=== PATIENT | female | born 1930 | race Caucasian/White ===

== ENCOUNTER 2016-12-25 09:23 | Emergency (ER) | payer MEDICARE, OTHER ==
--- NOTE | 2016-12-25 09:57 | EDDOCDS ---
Physician Documentation [facility] Name: Nika Bai Age: 86 yrs Sex: Female : 1930 Arrival Date: 12/25/2016 Time: 09:23 Bed Triage 2 Private MD: Jeffery Baker A. Disposition: 12/25/16 09:51 Discharged to Home/Self Care. Impression: Sprain of other part of right wrist and hand. - Condition is Stable. - Discharge Instructions: Elastic Bandage and RICE. - Medication Reconciliation, Local Pharmacy Hours form. - Follow up: Jeffery Baker; When: 1 week; Reason: Recheck today's complaints. - Problem is new. - Symptoms are unchanged. - Notes: recommend use of tylenol as needed for pain Historical: - Allergies: No known drug Allergies; - Home Meds: 1. amlodipine 5 mg Oral tab 1 tab once daily 2. Diovan 320 mg Oral tab 1 tab once daily 3. indapamide 1.25 mg Oral tab 1 tab once daily 4. atorvastatin 10 mg oral tab 1 tab once daily 5. spironolactone 12.5 mg Oral tab once daily 6. One Daily Womens 50 Plus Unknown oral daily - PMHx: Hypercholesterolemia; Hypertension; - PSHx: Hysterectomy; - Social history: Smoking status: Patient states former smoker of tobacco. No barriers to communication noted, The patient speaks fluent Bahraini, Speaks appropriately for age. - Family history: Not pertinent. - : The pt / caregiver states he / she is not on anticoagulants. Home medication list is obtained from the patient. - Exposure Risk Screening:: None identified. Vital Signs: 12/25 09:25 BP 195 / 79; Pulse 96; Resp 18; Temp 98.9; Pulse Ox 98% ; Weight 80.74 kg / 178 lbs; elp Height 5 ft. 4 in. (162.56 cm); 09:25 Body Mass Index 30.55 (80.74 kg, 162.56 cm) elp MDM: 09:55 Financial registration complete. lg Signatures: Phillip Velazquez, Reg Reg lg Kianna Jarvis RN RN ck1 Hernandez Zafar, PAT STEWART ar2 MTDD
--- NOTE | 2016-12-25 09:57 | EDDOCDS ---
Nurse's Notes [facility] Name: Nika Bai Age: 86 yrs Sex: Female : 1930 Arrival Date: 12/25/2016 Time: 09:23 Bed Triage 2 Private MD: Jeffery Baker A. Diagnosis: Sprain of other part of right wrist and hand Presentation: 12/25 09:30 Presenting complaint: Patient states: Increased pain to right wrist after trying to ck1 remove a lid from a pill bottle. Adult Sepsis Screening: The patient does not have new or worsening altered mentation. Patient's respiratory rate is less than 22. Systolic blood pressure is greater than 100. Patient has a qSOFA score of 0- Negative Sepsis Screen. Suicide/Homicide risk assessment- the patient denies having any suicidal and/or homicidal ideations and does not present with any other emotional, behavioral or mental health complaints. Status: Patient is not a account services analyst or dependent. Transition of care: patient was not received from another setting of care. 09:30 Acuity: NICOLE Level 4 ck1 09:30 Method Of Arrival: Walkin/Carried/Asstd ck1 Triage Assessment: 09:33 General: Appears in no apparent distress, comfortable, Behavior is appropriate for age, ck1 cooperative. Pain: Location: right wrist Pain currently is 9 out of 10 on a pain scale. Neurological: Level of Consciousness is awake, alert, obeys commands, Oriented to person, place, time. Musculoskeletal: Circulation, motion, and sensation intact Range of motion intact in all extremities. Swelling present in right wrist. Historical: - Allergies: No known drug Allergies; - Home Meds: 1. amlodipine 5 mg Oral tab 1 tab once daily 2. Diovan 320 mg Oral tab 1 tab once daily 3. indapamide 1.25 mg Oral tab 1 tab once daily 4. atorvastatin 10 mg oral tab 1 tab once daily 5. spironolactone 12.5 mg Oral tab once daily 6. One Daily Womens 50 Plus Unknown oral daily - PMHx: Hypercholesterolemia; Hypertension; - PSHx: Hysterectomy; - Social history: Smoking status: Patient states former smoker of tobacco. No barriers to communication noted, The patient speaks fluent Serbian, Speaks appropriately for age. - Family history: Not pertinent. - : The pt / caregiver states he / she is not on anticoagulants. Home medication list is obtained from the patient. - Exposure Risk Screening:: None identified. Screenin:55 Screening information is obtained from the patient. Fall risk: No risks identified. ck1 Assistance ADL's: requires no assistance with activities of daily living. Abuse/DV Screen: The patient / caregiver reports he/she is: not in a situation that causes fear, pain or injury. Nutritional screening: No deficits noted. Advance Directives: Currently, there is no health care proxy. home support is adequate. Assessment: 09:56 General: Appears in no apparent distress, comfortable, Behavior is appropriate for age, ck1 cooperative. Pain: Location: right wrist Pain currently is 9 out of 10 on a pain scale. Derm: Skin is intact, Skin is pink, warm & dry. Musculoskeletal: Circulation, motion, and sensation intact Range of motion intact in all extremities. Swelling present in right wrist. Vital Signs: 09:25 BP 195 / 79; Pulse 96; Resp 18; Temp 98.9; Pulse Ox 98% ; Weight 80.74 kg; Height 5 ft. elp 4 in. (162.56 cm); 09:25 Body Mass Index 30.55 (80.74 kg, 162.56 cm) [facility] Vitals: 09:25 Log In Time: December 25, 2016 at 09:23. [facility] ED Course: 09:25 Patient visited by Violetta Lemus PCA. elp 09:25 Jeffery Baker is Private Physician. elp 09:25 Patient moved to Waiting elp 09:26 Patient moved to Pre RCE elp 09:30 Triage Initiated ck1 09:33 Patient moved to Triage 2 ck1 09:34 Hernandez Zafar PA-C is [facility]. ar2 09:34 Malena Lindsay MD is Attending Physician. ar2 09:34 Patient visited by Hernandez Zafar PA-C. ar2 09:51 Jeffery Baker is Referral Physician. ar2 09:54 No IV's were initiated during this patient's visit. No procedures done that require ck1 assistance. Aric wrap to right wrist. Patient has positive distal pulse, brisk capillary refill, and positive sensation after application. 09:55 The patient / caregiver is instructed regarding the plan of care and ED course. ck1 Order Results: There are currently no results for this order. Outcome: 09:51 Discharge ordered by Provider. ar2 09:55 Discharge Assessment: Patient awake, alert and oriented x 3. No cognitive and/or ck1 functional deficits noted. Patient verbalized understanding of disposition instructions. patient administered narcotics - no. The following High Risk Discharge criteria are identified: None. Discharged to home ambulatory. Condition: stable. Discharge instructions given to patient, Instructed on discharge instructions, follow up and referral plans. medication usage, Rest, Ice, Compression and Elevation. Demonstrated understanding of instructions, medications, Pt was receptive of discharge instructions/ teaching. No special radiology studies were completed. Property :Personal belongings accompany Pt. 09:56 Patient left the ED. ck1 Signatures: Kianna Jarvis,RN RN ck1 Hernandez Zafar PA-C PA-C ar2 Violetta Lemus PCA PCA elp MTDD
--- NOTE | 2016-12-27 10:57 | EDDOCDS ---
Physician Documentation [facility] Name: Nika Bai Age: 86 yrs Sex: Female : 1930 Arrival Date: 12/25/2016 Time: 09:23 Bed Triage 2 Private MD: Jeffery Baker A. Disposition: 12/25/16 09:51 Discharged to Home/Self Care. Impression: Sprain of other part of right wrist and hand. - Condition is Stable. - Discharge Instructions: Elastic Bandage and RICE. - Medication Reconciliation, Local Pharmacy Hours form. - Follow up: Jeffery Baker; When: 1 week; Reason: Recheck today's complaints. - Problem is new. - Symptoms are unchanged. - Notes: recommend use of tylenol as needed for pain Historical: - Allergies: No known drug Allergies; - Home Meds: 1. amlodipine 5 mg Oral tab 1 tab once daily 2. Diovan 320 mg Oral tab 1 tab once daily 3. indapamide 1.25 mg Oral tab 1 tab once daily 4. atorvastatin 10 mg oral tab 1 tab once daily 5. spironolactone 12.5 mg Oral tab once daily 6. One Daily Womens 50 Plus Unknown oral daily - PMHx: Hypercholesterolemia; Hypertension; - PSHx: Hysterectomy; - Social history: Smoking status: Patient states former smoker of tobacco. No barriers to communication noted, The patient speaks fluent Burundian, Speaks appropriately for age. - Family history: Not pertinent. - : The pt / caregiver states he / she is not on anticoagulants. Home medication list is obtained from the patient. - Exposure Risk Screening:: None identified. Vital Signs: 12/25 09:25 BP 195 / 79; Pulse 96; Resp 18; Temp 98.9; Pulse Ox 98% ; Weight 80.74 kg / 178 lbs; elp Height 5 ft. 4 in. (162.56 cm); 09:25 Body Mass Index 30.55 (80.74 kg, 162.56 cm) elp MDM: 09:55 Financial registration complete. lg 10:10 [facility] Payment Agreement was scanned into [employer] and attached to record. 12/27 08:32 T-Sheet-- Draft Copy was scanned into [employer] and attached to record. Signatures: Phillip Velazquez, Reg Reg Kianna CostaRN RN ck1 Hernandez Zafar, PAT STEWART ar2 The chart was reviewed and I authenticate all verbal orders and agree with the evaluation and treatment provided.Attachments: 12/25 10:10 [facility] Payment Agreement lg 12/27 08:32 T-Sheet-- Draft Copy lg Chart Complete MTDD
--- NOTE | 2016-12-27 10:57 | EDDOCDS ---
Nurse's Notes [facility] Name: Nika Bai Age: 86 yrs Sex: Female : 1930 Arrival Date: 12/25/2016 Time: 09:23 Bed Triage 2 Private MD: Jeffery Baker A. Diagnosis: Sprain of other part of right wrist and hand Presentation: 12/25 09:30 Presenting complaint: Patient states: Increased pain to right wrist after trying to ck1 remove a lid from a pill bottle. Adult Sepsis Screening: The patient does not have new or worsening altered mentation. Patient's respiratory rate is less than 22. Systolic blood pressure is greater than 100. Patient has a qSOFA score of 0- Negative Sepsis Screen. Suicide/Homicide risk assessment- the patient denies having any suicidal and/or homicidal ideations and does not present with any other emotional, behavioral or mental health complaints. Status: Patient is not a director of student financial services or dependent. Transition of care: patient was not received from another setting of care. 09:30 Acuity: NICOLE Level 4 ck1 09:30 Method Of Arrival: Walkin/Carried/Asstd ck1 Triage Assessment: 09:33 General: Appears in no apparent distress, comfortable, Behavior is appropriate for age, ck1 cooperative. Pain: Location: right wrist Pain currently is 9 out of 10 on a pain scale. Neurological: Level of Consciousness is awake, alert, obeys commands, Oriented to person, place, time. Musculoskeletal: Circulation, motion, and sensation intact Range of motion intact in all extremities. Swelling present in right wrist. Historical: - Allergies: No known drug Allergies; - Home Meds: 1. amlodipine 5 mg Oral tab 1 tab once daily 2. Diovan 320 mg Oral tab 1 tab once daily 3. indapamide 1.25 mg Oral tab 1 tab once daily 4. atorvastatin 10 mg oral tab 1 tab once daily 5. spironolactone 12.5 mg Oral tab once daily 6. One Daily Womens 50 Plus Unknown oral daily - PMHx: Hypercholesterolemia; Hypertension; - PSHx: Hysterectomy; - Social history: Smoking status: Patient states former smoker of tobacco. No barriers to communication noted, The patient speaks fluent Estonian, Speaks appropriately for age. - Family history: Not pertinent. - : The pt / caregiver states he / she is not on anticoagulants. Home medication list is obtained from the patient. - Exposure Risk Screening:: None identified. Screenin:55 Screening information is obtained from the patient. Fall risk: No risks identified. ck1 Assistance ADL's: requires no assistance with activities of daily living. Abuse/DV Screen: The patient / caregiver reports he/she is: not in a situation that causes fear, pain or injury. Nutritional screening: No deficits noted. Advance Directives: Currently, there is no health care proxy. home support is adequate. Assessment: 09:56 General: Appears in no apparent distress, comfortable, Behavior is appropriate for age, ck1 cooperative. Pain: Location: right wrist Pain currently is 9 out of 10 on a pain scale. Derm: Skin is intact, Skin is pink, warm & dry. Musculoskeletal: Circulation, motion, and sensation intact Range of motion intact in all extremities. Swelling present in right wrist. Vital Signs: 09:25 BP 195 / 79; Pulse 96; Resp 18; Temp 98.9; Pulse Ox 98% ; Weight 80.74 kg; Height 5 ft. elp 4 in. (162.56 cm); 09:25 Body Mass Index 30.55 (80.74 kg, 162.56 cm) [facility] Vitals: 09:25 Log In Time: December 25, 2016 at 09:23. [facility] ED Course: 09:25 Patient visited by Violetta Lemus PCA. elp 09:25 Jeffery Baker is Private Physician. elp 09:25 Patient moved to Waiting elp 09:26 Patient moved to Pre RCE elp 09:30 Triage Initiated ck1 09:33 Patient moved to Triage 2 ck1 09:34 [facility]-C [facility] ar2 09:34 Malena Lindsay MD is Attending Physician. ar2 09:34 Patient visited by Hernandez Zafar PA-C. ar2 09:51 Jeffery Baker is Referral Physician. ar2 09:54 No IV's were initiated during this patient's visit. No procedures done that require ck1 assistance. Aric wrap to right wrist. Patient has positive distal pulse, brisk capillary refill, and positive sensation after application. 09:55 The patient / caregiver is instructed regarding the plan of care and ED course. ck1 10:10 [facility] Payment Agreement was scanned into [employer] and attached to record. lg 12/27 08:32 T-Sheet-- Draft Copy was scanned into [employer] and attached to record. lg Order Results: There are currently no results for this order. Outcome: 12/25 09:51 Discharge ordered by Provider. ar2 09:55 Discharge Assessment: Patient awake, alert and oriented x 3. No cognitive and/or ck1 functional deficits noted. Patient verbalized understanding of disposition instructions. patient administered narcotics - no. The following High Risk Discharge criteria are identified: None. Discharged to home ambulatory. Condition: stable. Discharge instructions given to patient, Instructed on discharge instructions, follow up and referral plans. medication usage, Rest, Ice, Compression and Elevation. Demonstrated understanding of instructions, medications, Pt was receptive of discharge instructions/ teaching. No special radiology studies were completed. Property :Personal belongings accompany Pt. 09:56 Patient left the ED. ck1 Signatures: Phillip Velazquez, Reg Reg lg Kianna JarvisRN RN ck1 Hernandez Zafar PA-C PA-C ar2 Violetta Lemus, DANY RACK MAKER elp Chart Complete [facility]
--- NOTE | 2016-12-27 10:57 | EDDOCDS ---
Physician Documentation [facility] Name: Nika Bai Age: 86 yrs Sex: Female : 1930 Arrival Date: 12/25/2016 Time: 09:23 Bed Triage 2 Private MD: Jeffery Baker A. Disposition: 12/25/16 09:51 Discharged to Home/Self Care. Impression: Sprain of other part of right wrist and hand. - Condition is Stable. - Discharge Instructions: Elastic Bandage and RICE. - Medication Reconciliation, Local Pharmacy Hours form. - Follow up: Jeffery Baker; When: 1 week; Reason: Recheck today's complaints. - Problem is new. - Symptoms are unchanged. - Notes: recommend use of tylenol as needed for pain Historical: - Allergies: No known drug Allergies; - Home Meds: 1. amlodipine 5 mg Oral tab 1 tab once daily 2. Diovan 320 mg Oral tab 1 tab once daily 3. indapamide 1.25 mg Oral tab 1 tab once daily 4. atorvastatin 10 mg oral tab 1 tab once daily 5. spironolactone 12.5 mg Oral tab once daily 6. One Daily Womens 50 Plus Unknown oral daily - PMHx: Hypercholesterolemia; Hypertension; - PSHx: Hysterectomy; - Social history: Smoking status: Patient states former smoker of tobacco. No barriers to communication noted, The patient speaks fluent Nepalese, Speaks appropriately for age. - Family history: Not pertinent. - : The pt / caregiver states he / she is not on anticoagulants. Home medication list is obtained from the patient. - Exposure Risk Screening:: None identified. Vital Signs: 12/25 09:25 BP 195 / 79; Pulse 96; Resp 18; Temp 98.9; Pulse Ox 98% ; Weight 80.74 kg / 178 lbs; elp Height 5 ft. 4 in. (162.56 cm); 09:25 Body Mass Index 30.55 (80.74 kg, 162.56 cm) elp MDM: 09:55 Financial registration complete. lg 10:10 [facility] Payment Agreement was scanned into [employer] and attached to record. 12/27 08:32 T-Sheet-- Draft Copy was scanned into [employer] and attached to record. Signatures: Phillip Velazquez, Reg Reg Kianna CostaRN RN ck1 Hernandez Zafar, PAT STEWART ar2 The chart was reviewed and I authenticate all verbal orders and agree with the evaluation and treatment provided.Attachments: 12/25 10:10 [facility] Payment Agreement lg 12/27 08:32 T-Sheet-- Draft Copy lg Chart Complete MTDD
== END 2016-12-25 09:56 | disposition home or self-care (01) ==
LOC: M ED 09:23
DX: S63.501A Unspecified sprain of right wrist, initial encounter (principal); X50.9XXA Other and unspecified overexertion or strenuous movements or postures, initial encounter; Y92.019 Unspecified place in single-family (private) house as the place of occurrence of the external cause; Y93.89 Activity, other specified; Y99.8 Other external cause status; E78.00 Pure hypercholesterolemia, unspecified; I10 Essential (primary) hypertension; Z87.891 Personal history of nicotine dependence; Z79.899 Other long term (current) drug therapy

== ENCOUNTER 2018-10-17 08:44 | Inpatient (IN) | payer MEDICARE ==
[2018-10-17] MEDS: MORPHINE 2 MG/ML 1ML SYRINGE (J2270) IV (09:47)
[2018-10-17 09:57] LABS: BASO % 0.1 % (0.0-1.0); HEMATOCRIT 38.3 % (36.0-47.0); HEMOGLOBIN 12.8 g/dl (12.0-15.5); LYMPH # 0.6 10^3/uL (1.5-4.5); MEAN CORPUSCULAR HGB CONC 33.4 g/dl (32.0-36.5); MEAN CORPUSCULAR VOLUME 92.7 fl (80.0-96.0); MONO # 0.6 10^3/uL (0.0-0.8); MONO % 4.2 % (0.0-5.0); NEUTROPHILS # 12.8 10^3/uL (1.8-7.7); NEUTROPHILS % 90.7 % (36.0-66.0); PLATELET COUNT, AUTOMATED 469 10^3/uL (150-450); RED BLOOD COUNT 4.13 10^6/uL (4.00-5.40); RED CELL DISTRIBUTION WIDTH 12.9 % (11.5-14.5); WHITE BLOOD COUNT 14.1 10^3/uL (4.0-10.0)
[2018-10-17 10:27] LABS: ANION GAP 7 MEQ/L (8-16); BLOOD UREA NITROGEN 28 MG/DL (7-18); CALCIUM LEVEL 10.5 MG/DL (8.8-10.2); CARBON DIOXIDE LEVEL 32 MEQ/L (21-32); CHLORIDE LEVEL 101 MEQ/L (98-107); CREATININE FOR GFR 0.92 MG/DL (0.55-1.30); GLOMERULAR FILTRATION RATE > 60.0 (>32); GLUCOSE, FASTING 130 MG/DL (70-100); POTASSIUM SERUM 3.9 MEQ/L (3.5-5.1); SODIUM LEVEL 140 MEQ/L (136-145)
[2018-10-17 10:32] LABS: CPK CREATINE PHOSPHOKINASE 666 U/L (26-192); MB/CK RELATIVE INDEX 1.88 (< OR =4); TROPONIN I < 0.02 NG/ML (< 0.10)
[2018-10-17] MEDS: MORPHINE 4 MG/ML 1ML VIAL/SYRINGE (J2270) IV ×2 (12:15→20:38)
[2018-10-17 12:20] LABS: KETONE, URINE AUTO RFX TRACE mg/dL (NEGATIVE); MUCUS, URINE RFX SMALL (NEGATIVE); NITRITE, URINE AUTO RFX NEGATIVE (NEGATIVE); RBC, URINE AUTO RFX 1 /HPF (0-3); SPECIFIC GRAVITY UR AUTO RFX 1.017 (1.002-1.035); SQUAM EPITHELIAL CELL UR AURFX 2 /HPF (0-6)
[2018-10-17 12:21] LABS: LEUKOCYTE ESTERASE UR AUTO RFX 1+ (NEGATIVE); WBC, URINE AUTO RFX 30 /HPF (0-3)
[2018-10-17] MEDS: NS 1,000 ML IV (17:26)
[2018-10-17] MEDS: PERCOCET 5MG/325MG TAB PO (18:03)
[2018-10-17] MEDS: amLODIPine 5 MG TAB PO ×2 (18:04→20:00)
[2018-10-17] MEDS: cefTRIAXone SOD 1 GM in D5W MINI-BAG PLUS 50 ML IV (18:04)
[2018-10-17] MEDS: ENOXAPARIN 40 MG/0.4 ML SYRINGE (J1650) SC (18:05)
[2018-10-17] MEDS: predniSONE 20 MG TAB PO (20:37)
[2018-10-17] MEDS: ONDANSETRON 4MG/2ML VIAL (J2405) IV (20:38)
[2018-10-18] MEDS: MORPHINE 4 MG/ML 1ML VIAL/SYRINGE (J2270) IV (01:47)
[2018-10-18 06:15] LABS: BASO % 0.2 % (0.0-1.0); HEMATOCRIT 37.4 % (36.0-47.0); HEMOGLOBIN 12.2 g/dl (12.0-15.5); LYMPH # 0.9 10^3/uL (1.5-4.5); LYMPH % 9.8 % (24.0-44.0); MEAN CORPUSCULAR HEMOGLOBIN 30.4 pg (27.0-33.0); MEAN CORPUSCULAR HGB CONC 32.6 g/dl (32.0-36.5); MEAN CORPUSCULAR VOLUME 93.3 fl (80.0-96.0); MONO # 0.6 10^3/uL (0.0-0.8); MONO % 6.8 % (0.0-5.0); NEUTROPHILS # 7.3 10^3/uL (1.8-7.7); NEUTROPHILS % 82.2 % (36.0-66.0); PLATELET COUNT, AUTOMATED 437 10^3/uL (150-450); RED BLOOD COUNT 4.01 10^6/uL (4.00-5.40); RED CELL DISTRIBUTION WIDTH 13.1 % (11.5-14.5); WHITE BLOOD COUNT 8.8 10^3/uL (4.0-10.0)
[2018-10-18] MEDS: traMADol 50 MG TAB PO ×3 (06:27→18:13)
[2018-10-18 06:43] LABS: ALBUMIN 2.9 GM/DL (3.2-5.2); ALBUMIN/GLOBULIN RATIO 0.81 (1.00-1.93); ALKALINE PHOSPHATASE 110 U/L (45-117); ALT/SGPT 42 U/L (12-78); ANION GAP 7 MEQ/L (8-16); AST/SGOT 26 U/L (7-37); BILIRUBIN,TOTAL 0.4 MG/DL (0.2-1.0); BLOOD UREA NITROGEN 27 MG/DL (7-18); CALCIUM LEVEL 9.1 MG/DL (8.8-10.2); CARBON DIOXIDE LEVEL 29 MEQ/L (21-32); CHLORIDE LEVEL 105 MEQ/L (98-107); CREATININE FOR GFR 0.82 MG/DL (0.55-1.30); GLOMERULAR FILTRATION RATE > 60.0 (>32); GLUCOSE, FASTING 116 MG/DL (70-100); POTASSIUM SERUM 3.9 MEQ/L (3.5-5.1); SODIUM LEVEL 141 MEQ/L (136-145); TOTAL PROTEIN 6.5 GM/DL (6.4-8.2)
[2018-10-18] MEDS: predniSONE 20 MG TAB PO ×2 (08:17→20:49)
[2018-10-18] MEDS: ENOXAPARIN 40 MG/0.4 ML SYRINGE (J1650) SC (08:17)
[2018-10-18] MEDS: PERCOCET 5MG/325MG TAB PO ×2 (08:17→15:29)
[2018-10-18] MEDS: amLODIPine 5 MG TAB PO (08:17)
[2018-10-18] MEDS: ACETAMINOPHEN TAB 650MG DOSE (2X325MG) PO (10:25)
[2018-10-18] MEDS ORDERED: BISACODYL 5 MG TAB PO (12:45)
[2018-10-18] MEDS: SENNA 8.6 MG TAB (SENOKOT) PO ×2 (13:36→20:49)
[2018-10-18] MEDS: cefTRIAXone SOD 1 GM in D5W MINI-BAG PLUS 50 ML IV (16:55)
[2018-10-19] MEDS: predniSONE 20 MG TAB PO (08:44)
[2018-10-19] MEDS: SENNA 8.6 MG TAB (SENOKOT) PO (08:44)
[2018-10-19] MEDS: amLODIPine 5 MG TAB PO (08:45)
[2018-10-19] MEDS: PERCOCET 5MG/325MG TAB PO ×3 (08:46→16:23)
[2018-10-19 08:47] LABS: HEMATOCRIT 39.7 % (36.0-47.0); HEMOGLOBIN 13.4 g/dl (12.0-15.5); MEAN CORPUSCULAR HEMOGLOBIN 30.6 pg (27.0-33.0); MEAN CORPUSCULAR HGB CONC 33.8 g/dl (32.0-36.5); MEAN CORPUSCULAR VOLUME 90.6 fl (80.0-96.0); PLATELET COUNT, AUTOMATED 488 10^3/uL (150-450); RED BLOOD COUNT 4.38 10^6/uL (4.00-5.40); RED CELL DISTRIBUTION WIDTH 12.8 % (11.5-14.5); WHITE BLOOD COUNT 11.1 10^3/uL (4.0-10.0)
[2018-10-19] MEDS: ENOXAPARIN 40 MG/0.4 ML SYRINGE (J1650) SC (08:48)
[2018-10-19 09:11] LABS: ANION GAP 7 MEQ/L (8-16); BLOOD UREA NITROGEN 26 MG/DL (7-18); CALCIUM LEVEL 9.7 MG/DL (8.8-10.2); CARBON DIOXIDE LEVEL 30 MEQ/L (21-32); CHLORIDE LEVEL 103 MEQ/L (98-107); CREATININE FOR GFR 0.82 MG/DL (0.55-1.30); GLOMERULAR FILTRATION RATE > 60.0 (>32); GLUCOSE, FASTING 176 MG/DL (70-100); POTASSIUM SERUM 3.4 MEQ/L (3.5-5.1); SODIUM LEVEL 140 MEQ/L (136-145)
[2018-10-19] MEDS: VALSARTAN 80 MG TAB (DIOVAN) PO (12:19)
[2018-10-19] MEDS: SPIRONOLACTONE 25 MG TAB PO (12:20)
[2018-10-19] MEDS: POTASSIUM CHLORIDE 10 MEQ SR TABLET PO (12:20)
[2018-10-19] MEDS: INDAPAMIDE 1.25MG TABLET PO (13:38)
[2018-10-19] MEDS: traMADol 50 MG TAB PO (13:38)
[2018-10-19] MEDS: CYCLOBENZAPRINE 5MG TABLET PO (16:20)
[2018-10-19] MEDS: cefTRIAXone SOD 1 GM in D5W MINI-BAG PLUS 50 ML IV (16:20)
== END 2018-10-19 18:10 | DRG 552 ==
LOC: M MS5PR 10-18 14:48 → M ED 08:44 → M ED INP 15:52 → M ICU 17:45
DX: S32.10XA Unspecified fracture of sacrum, initial encounter for closed fracture (principal); N39.0 Urinary tract infection, site not specified; E86.0 Dehydration; I10 Essential (primary) hypertension; E78.5 Hyperlipidemia, unspecified; M81.0 Age-related osteoporosis without current pathological fracture; Z79.899 Other long term (current) drug therapy; W18.30XA Fall on same level, unspecified, initial encounter; Y92.012 Bathroom of single-family (private) house as the place of occurrence of the external cause; B96.29 Other Escherichia coli [E. coli] as the cause of diseases classified elsewhere

== ENCOUNTER 2018-10-19 16:01 | Inpatient (IN) | payer MEDICARE ==
[~2018-10-19] VITALS: Ht 165.1 cm; Wt 73.8 kg
[~2018-10-19 16:01] MED LIST: AMLO5TAB4 PO; CEFD300CAP PO; DIOV320T PO; INDA125TA PO; PRED20TA PO; SPIR-10 PO; TRAM50TA2 PO; VITMTA PO
[2018-10-19] MEDS ORDERED: MOM 30ML SUSPENSION UDC PO PRN (16:30)
[2018-10-19] MEDS ORDERED: ONDANSETRON 4 MG TAB (S0181) PO PRN (16:30)
[2018-10-19] MEDS ORDERED: CYCLOBENZAPRINE 5MG TABLET PO PRN (16:30)
[2018-10-19] MEDS ORDERED: BISACODYL 5 MG TAB PO PRN (16:30)
[2018-10-19 18:45] VITALS: BP 148/72
[2018-10-19 20:00] VITALS: BP 160/80
[2018-10-19] MEDS: predniSONE 20 MG TAB PO SCH (20:58)
[2018-10-19] MEDS: SENOKOT S TAB PO SCH (20:58)
[2018-10-19] MEDS: CEFDINIR 300 MG CAP (OMNICEF) PO SCH (20:58)
[2018-10-19] MEDS: traMADol 50 MG TAB PO PRN (21:01)
[2018-10-20] MEDS: traMADol 50 MG TAB PO PRN ×2 (03:37→11:16)
[2018-10-20 06:00] VITALS: BP 163/80
[2018-10-20 07:20] LABS: BASO % 0.2 % (0.0-1.0); EOS % 0.1 % (0.0-3.0); HEMATOCRIT 41.2 % (36.0-47.0); HEMOGLOBIN 13.6 g/dl (12.0-15.5); LYMPH # 1.3 10^3/uL (1.5-4.5); LYMPH % 9.4 % (24.0-44.0); MEAN CORPUSCULAR HEMOGLOBIN 30.4 pg (27.0-33.0); MEAN CORPUSCULAR VOLUME 92.2 fl (80.0-96.0); MONO # 0.8 10^3/uL (0.0-0.8); MONO % 5.3 % (0.0-5.0); NEUTROPHILS # 11.8 10^3/uL (1.8-7.7); NEUTROPHILS % 83.7 % (36.0-66.0); PLATELET COUNT, AUTOMATED 523 10^3/uL (150-450); RED BLOOD COUNT 4.47 10^6/uL (4.00-5.40); WHITE BLOOD COUNT 14.1 10^3/uL (4.0-10.0)
[2018-10-20 08:00] LABS: ALBUMIN 3.1 GM/DL (3.2-5.2); ALT/SGPT 39 U/L (12-78); BILIRUBIN,TOTAL 0.5 MG/DL (0.2-1.0); BLOOD UREA NITROGEN 24 MG/DL (7-18); CALCIUM LEVEL 9.6 MG/DL (8.8-10.2); CARBON DIOXIDE LEVEL 29 MEQ/L (21-32); CHLORIDE LEVEL 103 MEQ/L (98-107); CREATININE FOR GFR 0.74 MG/DL (0.55-1.30); GLOMERULAR FILTRATION RATE > 60.0 (>32); GLUCOSE, FASTING 112 MG/DL (70-100); POTASSIUM SERUM 4.4 MEQ/L (3.5-5.1); SODIUM LEVEL 139 MEQ/L (136-145); TOTAL PROTEIN 7.3 GM/DL (6.4-8.2)
[2018-10-20 08:44] VITALS: BP 148/70
[2018-10-20] MEDS: SENOKOT S TAB PO SCH ×2 (08:47→20:28)
[2018-10-20] MEDS: ENOXAPARIN 40 MG/0.4 ML SYRINGE (J1650) SC SCH (08:47)
[2018-10-20] MEDS: PERCOCET 5MG/325MG TAB PO PRN ×3 (08:47→20:29)
[2018-10-20] MEDS: INDAPAMIDE 1.25MG TABLET PO SCH (08:48)
[2018-10-20] MEDS: SPIRONOLACTONE 25 MG TAB PO SCH (08:48)
[2018-10-20] MEDS: predniSONE 20 MG TAB PO SCH ×2 (08:48→20:28)
[2018-10-20] MEDS: PANTOPRAZOLE 40MG TAB (PROTONIX) PO SCH (08:48)
[2018-10-20] MEDS: VALSARTAN 80 MG TAB (DIOVAN) PO SCH (08:49)
[2018-10-20] MEDS: CEFDINIR 300 MG CAP (OMNICEF) PO SCH ×2 (08:49→20:28)
[2018-10-20] MEDS: amLODIPine 5 MG TAB PO SCH ×2 (10:00→10:15)
[2018-10-20 10:09] VITALS: BP 108/68
--- NOTE | 2018-10-20 12:56 | IPNPDOC ---
Date Seen The patient was seen on 10/20/18. Progress Note HPI: This is a 87-year-old female who presented 10/17/18 with back pain and generalized weakness. While getting out of the shower on the day of admission, the patient felt generally ill, with generalized weakness, had a mechanical fall, and fell onto her right side. The pt had been started on PO prednisone and tramadol as per PCP 10/13/18 for sciatica. In the ED, patient was noted to have a sacral fracture, orthopedics were consulted, with no surgical intervention was recommended. The pt was found to have E coli UTI and was treated with IV Rocephin. The pt was transferred to the care of [facility], Dr Hussein, 10/19/18. Pt states pain is controlled. Denies any fevers, chills, weakness, fatigue, Headache, Chest Pain, Shortness of breath, cough, palpitations, abdominal pain, N/V/D or changes in bowel or bladder habits. PMHx: HTN DLP Back pain/Sciatica PSHX: Hysterectomy PE: GEN: 87yoF, appears stated age. Well-nourished, well developed. No acute dist ress. Alert and oriented x 3. Pleasant, interactive. HEENT: Normocephalic, atraumatic. Pupils are equal, round, and reactive to light. Extraocular movements are intact. No nystagmus appreciated. Sclera are nonicteric. Conjunctiva without injection. Nose midline. Nasal turbinates without bogginess. EACs both patent BL. TMs both visualized and meng with good cone of light, no bulging or erythema. No facial asymmetry. Moist mucous membranes. Dentition fair. Pharynx pink and moist, no cobblestoning. Neck supple, trachea midline. No lymphadenopathy or thyromegaly appreciated. CHEST: Regular rate and rhythm, +S1, +S2 LUNGS: Clear to auscultation bilaterally. No wheezes, rales, or rhonchi. Breath ing appears symmetric and easy. Patient is speaking in full sentences. No accessory muscle use. ABD: Round, soft, non-tender, non-distended. +Bowel sounds throughout. No rebound or guarding. No costovertebral angle tenderness. EXT: Pulses 2+ bilaterally dorsalis pedis and radial. No lower extremity edema appreciated. SKIN: [place], dry, warm. Capillary refill <2sec. No rashes. NEURO: Alert and oriented x 3. Cranial nerves III-XII are intact. No focal deficits appreciated. A&P: This is a 87-year-old female who presented 10/17/18 with back pain and generalized weakness. While getting out of the shower on the day of admission, the patient felt generally ill, with generalized weakness, had a mechanical fall, and fell onto her right side. In the ED, patient was noted to have a sacral fracture, orthopedics were consulted, with no surgical intervention was recommended. The pt was transferred to the care of [facility], Dr Hussein, 10/19/18. Sacral fracture, S2 fracture. No intervention recommended as per Orthopedics. PT/OT as per Dr Hussein. Pain control as per Dr Hussein. Bowel care as per Dr Hussein Pt was started on po prednisone as per PCP 10/13/18 for sciatica. DVT prophylaxis. SQ Lovenox. UTI. E. Coli Blood Culture neg. Finish course of antibiotics, po Cefdinir. Hypertension Norvasc, Lozol, Aldactone, Losartan. Monitor. Leukocytosis. Pt is afebrile. Monitor. Recheck CBC in AM. VS, I&O, 24H, Fishbone Vital Signs/I&O Vital Signs Date Time Temp Pulse Resp B/P (MAP) Pulse Ox O2 Delivery O2 Flow Rate FiO2 10/20/18 11:46 18 10/20/18 10:09 108/68 (81) 10/20/18 08:44 81 10/20/18 06:00 97.6 96 Room Air I&O- Last 24 Hours up to 6 AM 10/20/18 05:59 Intake Total 240 ml Output Total 1000 ml Balance -760 ml Laboratory Data 24H LABS Laboratory Tests 2 10/20/18 06:50: Immature Granulocyte % (Auto) 1.3, White Blood Count 14.1H, Red Blood Count 4.47, Hemoglobin 13.6, Hematocrit 41.2, Mean Corpuscular Volume 92.2, Mean Corpuscular Hemoglobin 30.4, Mean Corpuscular Hemoglobin Concent 33.0, Red Cell Distribution Width 13.1, Platelet Count 523H, Neutrophils (%) (Auto) 83.7H, Lymphocytes (%) (Auto) 9.4L, Monocytes (%) (Auto) 5.3H, Eosinophils (%) (Auto) 0.1, Basophils (%) (Auto) 0.2, Neutrophils # (Auto) 11.8H, Lymphocytes # (Auto) 1.3L, Monocytes # (Auto) 0.8, Eosinophils # (Auto) 0.0, Basophils # (Auto) 0.0, Nucleated Red Blood Cells % (auto) 0.0, Anion Gap 7L, Glomerular Filtration Rate > 60.0, Blood Urea Nitrogen 24H, Creatinine 0.74, Sodium Level 139, Potassium Level 4.4#, Chloride Level 103, Carbon Dioxide Level 29, Calcium Level 9.6, Aspartate Amino Transf (AST/SGOT) 20, Alanine Aminotransferase (ALT/SGPT) 39, Alkaline Phosphatase 133H, Total Bilirubin 0.5, Total Protein 7.3, Albumin 3.1L, Albumin/Globulin Ratio 0.74L CBC/BMP Laboratory Tests 10/20/18 06:50 Red Blood Count 4.47, Mean Corpuscular Volume 92.2, Mean Corpuscular Hemoglobin 30.4, Mean Corpuscular Hemoglobin Concent 33.0, Red Cell Distribution Width 13.1, Neutrophils (%) (Auto) 83.7 H, Lymphocytes (%) (Auto) 9.4 L, Monocytes (%) (Auto) 5.3 H, Eosinophils (%) (Auto) 0.1, Basophils (%) (Auto) 0.2, Neutrophils # (Auto) 11.8 H, Lymphocytes # (Auto) 1.3 L, Monocytes # (Auto) 0.8, Eosinophils # (Auto) 0.0, Basophils # (Auto) 0.0, Calcium Level 9.6, Aspartate Amino Transf (AST/SGOT) 20, Alanine Aminotransferase (ALT/SGPT) 39, Alkaline Phosphatase 133 H, Total Bilirubin 0.5, Total Protein 7.3, Albumin 3.1 L Nohemy Castillo Oct 20, 2018 12:46
[2018-10-20 14:00] VITALS: BP 140/80
--- NOTE | 2018-10-20 15:39 | HPEPDOC ---
Manager Radiation Note DATE OF ADMISSION: Oct 19, 2018 at 18:30 SOURCE OF ADMISSION INFORMATION: Patient and [facility] records CHIEF COMPLAINT: right pelvic fracture HISTORY OF PRESENT ILLNESS: 87F pmh HTN, HLD, and recently seen by pain management for left lower extremity pain secondary to radiculopathy, who reports increased generalized weakness resulting in a with a fall onto her right side and presented to [facility] ED on 10-17-18 complaining of right leg pain and weakness. She denies any palpitations, LOC, or head trauma from this fall. Trauma imaging series was performed showing on CT pelvis a "Right sacral ala hairline fracture and subtle fractures involving the lateral aspects of S2 seen in conjunction with marked bony demineralization." She was evaluated by orthopedics who deemed her a non- surgical candidate and made weight bearing as tolerated. She was found to be significantly dehydrated and her diuretics were held. She was also found to have a urine culture was positive for E. Coli UTI for which she was started on IV antibiotics. EKG showed her to be in sinus rhythm with left axis deviation and a new left bundle branch block. She continued to have left sided leg pain and lumbar MRI revealed, "Multilevel chronic discogenic changes and facet joint degenerative changes...There is no evidence of an acute disc extrusion at any level." She was maintained on pain medication and steroids for presumed left sided lumbar radiculopathy, her IV antibiotics were switched to po and she was deemed medically appropriate for discharge to ARU on 10-19-18. REVIEW OF SYSTEMS: The following is a completed review of systems and has been reviewed. Review of systems otherwise unremarkable. PAIN: Patient self reports left buttock pain EYES: Negative for recent vision loss EARS, NOSE, & THROAT: negative for rhinorrhea or dysphagia CARDIOVASCULAR: +HTN, denies chest pain or palpitations PULMONARY: Negative. Denies shortness of breath GASTROINTESTINAL: Negative for diarrhea or constipation GENITOURINARY: negative for dysuria, +UTI MUSCULOSKELETAL: right sacral fracture NEUROLOGICAL: Left lumbar radiculopathy SKIN: intact PSYCHIATRIC: Unremarkable All other review of systems found to be negative. PAST MEDICAL HISTORY: HTN, HLD PAST SURGICAL HISTORY: hysterectomy ALLERGIES: Please see below. MEDICATIONS: Please see below. SOCIAL HISTORY: Lives alone in senior development, denies ETOH, smoking, or illicit drug use. 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 DIET: Regular PHYSICAL EXAMINATION: VITAL SIGNS: Please see below. GENERAL: Pleasant and cooperative. No acute distress. Alert and oriented times three. HEENT: PERRL. Extraocular movements intact. Clear conjunctiva CARDIOVASCULAR: Regular rate and rhythm. No murmurs, rubs, or gallops LUNGS: Clear to auscultation bilaterally. No wheezes. No rhonchi ABDOMEN: Soft, nontender, nondistended. Positive bowel sounds. Normal active bowel sounds NEUROLOGICAL: Alert and oriented times three. Cranial nerves II through XII grossly intact. Sensation intact throughout all 4 extremities except diminished left L5 distribution EXTREMITIES:5\\5 strength bilateral upper extremities. 5\\5 strength right lower extremity. 5/5 strength in left lower extremity, except 4+/5 strength left ankle DF and EHL (-) Jere's bilat IMAGING: Imaging documentation personally reviewed by record FUNCTIONAL STATUS: Premorbid: Independent with all activities of daily life as well as mobility, using a RW and cane On Admission: Contact guard for functional transfers, able to walk 10F with RW at CG level. GOALS: Modified independent with RW in ambulation and stair negotiation, Modified independent with bathing, grooming, dressing, medical optimization,assess for DME needs, family training. ASSESSMENT:87-year-old F with past medical history of HTN and HLD who presents status post fall with right sacral fracture. PLAN: 1. Rehab: PT/OT, assess for DME needs 2. Ortho: right sacral fracture and S2 stable fracture, WBAT 3. Neuro: left sided leg pain, clinical picture consistent with an active L5 radiculopathy, will continue steroids and add gabapentin for pain management -d/c flexeril 4. Cardio: pmh HTN and HLD: continue home meds, medicine consulted 5. : +E. Coli UTI s/p Ceftriaxone, continue oral Cefdinir x5 days 6. DVT ppx: on lovenox and teds 7. Dispo: to home TBD POST ADMISSION PHYSICIAN EVALUATION: Medical and functional status: Description of medical status, medical assessment : As above. Rehabilitation diagnosis and current and prior cold morbid medical conditions as above. Risk of complications and plans to mitigate them as above. Description of functional status current status is as above. Prior status as above. Status compared to preadmission: There are no clinically significant differences between the patient's current status and the information described on the preadmission screening document. Treatment plan anticipated: Treatment plan is as described above. Required disciplines including physical therapy, occupational therapy, others as noted above. Intensity of services: 3 hours a day, 6 days a week. Special considerations: There are no specific special or safety considerations that would likely preclude immediate implementation of an intensive rehabili tation program or subsequently influence the plan of care ATTESTATION: Considering all the information above, it is my best judgment that this patient requires intensive rehabilitation therapy as described above and an inpatient hospital environment due to the complexity of nursing, medical, and re habilitation needs required by the patient. Furthermore, this patient can reasonably be expected to participate in an benefit from an inpatient rehabilitation stay with an interdisciplinary team approach to the delivery of rehabilitation care under the direction and supervision of lam ward. PROGNOSIS: Excellent ESTIMATED LENGTH OF STAY:7-10 days. PROJECTED DISCHARGE DESTINATION: Home with family support and any durable medical equipment required to increase functional safety and mobility. TIME SPENT COUNSELING AND COORDINATING INITIAL CARE: Greater than 70 minutes. Vital Signs Vital Sign - Last 24 Hours 10/19/18 10/19/18 10/19/18 10/20/18 18:45 20:00 21:01 03:37 Temp 98.6 97.2 Pulse 88 72 Resp 22 20 17 17 B/P (MAP) 148/72 (97) 160/80 (106) Pulse Ox 94 94 O2 Delivery Room Air Room Air Room Air Room Air 10/20/18 10/20/18 10/20/18 10/20/18 04:07 06:00 08:44 08:47 Temp 97.6 Pulse 72 81 Resp 16 19 18 B/P (MAP) 163/80 (107) 148/70 (96) Pulse Ox 96 O2 Delivery Room Air Room Air 10/20/18 10/20/18 10/20/18 10/20/18 08:49 09:17 10:00 10:09 Resp 18 B/P (MAP) 148/70 108/68 108/68 (81) 10/20/18 11:16 Resp 18 Laboratory Data CBC/BMP Laboratory Tests 10/20/18 06:50 Red Blood Count 4.47, Mean Corpuscular Volume 92.2, Mean Corpuscular Hemoglobin 30.4, Mean Corpuscular Hemoglobin Concent 33.0, Red Cell Distribution Width 13.1, Neutrophils (%) (Auto) 83.7 H, Lymphocytes (%) (Auto) 9.4 L, Monocytes (%) (Auto) 5.3 H, Eosinophils (%) (Auto) 0.1, Basophils (%) (Auto) 0.2, Neutrophils # (Auto) 11.8 H, Lymphocytes # (Auto) 1.3 L, Monocytes # (Auto) 0.8, Eosinophils # (Auto) 0.0, Basophils # (Auto) 0.0, Calcium Level 9.6, Aspartate Amino Transf (AST/SGOT) 20, Alanine Aminotransferase (ALT/SGPT) 39, Alkaline Phosphatase 133 H, Total Bilirubin 0.5, Total Protein 7.3, Albumin 3.1 L Labs 24H Laboratory Tests 2 10/20/18 06:50: Immature Granulocyte % (Auto) 1.3, White Blood Count 14.1H, Red Blood Count 4.47, Hemoglobin 13.6, Hematocrit 41.2, Mean Corpuscular Volume 92.2, Mean Corpuscular Hemoglobin 30.4, Mean Corpuscular Hemoglobin Concent 33.0, Red Cell Distribution Width 13.1, Platelet Count 523H, Neutrophils (%) (Auto) 83.7H, Lymphocytes (%) (Auto) 9.4L, Monocytes (%) (Auto) 5.3H, Eosinophils (%) (Auto) 0.1, Basophils (%) (Auto) 0.2, Neutrophils # (Auto) 11.8H, Lymphocytes # (Auto) 1.3L, Monocytes # (Auto) 0.8, Eosinophils # (Auto) 0.0, Basophils # (Auto) 0.0, Nucleated Red Blood Cells % (auto) 0.0, Anion Gap 7L, Glomerular Filtration Rate > 60.0, Blood Urea Nitrogen 24H, Creatinine 0.74, Sodium Level 139, Potassium Level 4.4#, Chloride Level 103, Carbon Dioxide Level 29, Calcium Level 9.6, Aspartate Amino Transf (AST/SGOT) 20, Alanine Aminotransferase (ALT/SGPT) 39, Alkaline Phosphatase 133H, Total Bilirubin 0.5, Total Protein 7.3, Albumin 3.1L, Albumin/Globulin Ratio 0.74L Home Medications Scheduled Amlodipine Besylate (Amlodipine Besylate) 5 Mg Tab, 5 MG PO DAILY, (Reported) Cefdinir (Cefdinir) 300 Mg Cap, 1 CAP PO BID Indapamide (Indapamide) 1.25 Mg Tab, 1.25 MG PO DAILY, (Reported) Multivitamins *[facility] STOCKED* (Thera M Plus *[facility] STOCKED*) 1 Tab Tab, 1 TAB PO DAILY, (Reported) Prednisone (Prednisone) 20 Mg Tab, 20 MG PO BID, (Reported) Spironolactone (Spironolactone) 25 Mg Tab, 25 MG PO DAILY, (Reported) Valsartan (Diovan) 320 Mg Tab, 320 MG PO DAILY, (Reported) Scheduled PRN Tramadol HCl (Tramadol HCl) 50 Mg Tab, 50 MG PO Q6H PRN for PAIN, (Reported) Allergies Coded Allergies: No Known Allergies (Unverified , 01/28/13) TYRELL REEVES MD Oct 20, 2018 11:48
[2018-10-20 20:00] VITALS: BP 158/74
[2018-10-20] MEDS ORDERED: GABAPENTIN 300 MG CAP PO SCH (21:00)
[2018-10-21 06:00] VITALS: BP 158/72
[2018-10-21 06:46] LABS: BASO % 0.2 % (0.0-1.0); EOS % 0.1 % (0.0-3.0); HEMATOCRIT 39.8 % (36.0-47.0); HEMOGLOBIN 13.3 g/dl (12.0-15.5); LYMPH # 1.3 10^3/uL (1.5-4.5); LYMPH % 10.4 % (24.0-44.0); MEAN CORPUSCULAR HEMOGLOBIN 30.5 pg (27.0-33.0); MEAN CORPUSCULAR HGB CONC 33.4 g/dl (32.0-36.5); MEAN CORPUSCULAR VOLUME 91.3 fl (80.0-96.0); MONO # 0.7 10^3/uL (0.0-0.8); MONO % 5.9 % (0.0-5.0); NEUTROPHILS # 9.9 10^3/uL (1.8-7.7); NEUTROPHILS % 82.2 % (36.0-66.0); PLATELET COUNT, AUTOMATED 509 10^3/uL (150-450); RED BLOOD COUNT 4.36 10^6/uL (4.00-5.40); WHITE BLOOD COUNT 12.1 10^3/uL (4.0-10.0)
[2018-10-21 07:02] LABS: BLOOD UREA NITROGEN 24 MG/DL (7-18); CALCIUM LEVEL 9.7 MG/DL (8.8-10.2); CARBON DIOXIDE LEVEL 30 MEQ/L (21-32); CHLORIDE LEVEL 99 MEQ/L (98-107); CREATININE FOR GFR 0.73 MG/DL (0.55-1.30); GLOMERULAR FILTRATION RATE > 60.0 (>32); GLUCOSE, FASTING 121 MG/DL (70-100); SODIUM LEVEL 136 MEQ/L (136-145)
[2018-10-21] MEDS: INDAPAMIDE 1.25MG TABLET PO SCH (08:22)
[2018-10-21] MEDS: ENOXAPARIN 40 MG/0.4 ML SYRINGE (J1650) SC SCH (08:22)
[2018-10-21] MEDS: CEFDINIR 300 MG CAP (OMNICEF) PO SCH ×2 (08:22→21:32)
[2018-10-21] MEDS: PANTOPRAZOLE 40MG TAB (PROTONIX) PO SCH (08:22)
[2018-10-21] MEDS: SPIRONOLACTONE 25 MG TAB PO SCH (08:23)
[2018-10-21] MEDS: PERCOCET 5MG/325MG TAB PO PRN ×3 (08:24→12:25)
[2018-10-21] MEDS: SENOKOT S TAB PO SCH ×2 (08:24→21:00)
[2018-10-21] MEDS: predniSONE 20 MG TAB PO SCH ×2 (08:25→21:32)
[2018-10-21] MEDS: VALSARTAN 80 MG TAB (DIOVAN) PO SCH (08:25)
[2018-10-21] MEDS: amLODIPine 5 MG TAB PO SCH (10:38)
[2018-10-21] MEDS: BISACODYL 10 MG SUPP PR PRN ×2 (10:38→15:58)
--- NOTE | 2018-10-21 11:23 | IPNPDOC ---
Date Seen The patient was seen on 10/21/18. Progress Note HPI: This is a 87-year-old female who presented 10/17/18 with back pain and generalized weakness. While getting out of the shower on the day of admission, the patient felt generally ill, with generalized weakness, had a mechanical fall, and fell onto her right side. The pt had been started on PO prednisone and tramadol as per PCP 10/13/18 for sciatica. In the ED, patient was noted to have a sacral fracture, orthopedics were consulted, with no surgical intervention was recommended. The pt was found to have E coli UTI and was treated with IV Rocephin. The pt was transferred to the care of ARU, Dr Hussein, 10/19/18. Pt states pain is controlled. She has been OOB with PT this AM. Denies any fevers, chills, weakness, fatigue, Headache, Chest Pain, Shortness of breath, cough, palpitations, abdominal pain, N/V/D or changes in bowel or bladder habits. PMHx: HTN DLP Back pain/Sciatica PSHX: Hysterectomy PE: GEN: 87yoF, appears stated age. Well-nourished, well developed. No acute distress. Alert and oriented x 3. Pleasant, interactive. HEENT: Normocephalic, atraumatic. Pupils are equal, round, and reactive to light. Extraocular movements are intact. No nystagmus appreciated. Sclera are nonicteric. Conjunctiva without injection. Nose midline. Nasal turbinates without bogginess. EACs both patent BL. TMs both visualized and meng with good cone of light, no bulging or erythema. No facial asymmetry. Moist mucous membranes. Dentition fair. Pharynx pink and moist, no cobblestoning. Neck supple, trachea midline. No lymphadenopathy or thyromegaly appreciated. CHEST: Regular rate and rhythm, +S1, +S2 LUNGS: Clear to auscultation bilaterally. No wheezes, rales, or rhonchi. Breathing appears symmetric and easy. Patient is speaking in full sentences. No accessory muscle use. ABD: Round, soft, non-tender, non-distended. +Bowel sounds throughout. No rebound or guarding. No costovertebral angle tenderness. EXT: Pulses 2+ bilaterally dorsalis pedis and radial. No lower extremity edema appreciated. SKIN: [place], dry, warm. Capillary refill <2sec. No rashes. NEURO: Alert and oriented x 3. Cranial nerves III-XII are intact. No focal deficits appreciated. A&P: This is a 87-year-old female who presented 10/17/18 with back pain and generalized weakness. While getting out of the shower on the day of admission, the patient felt generally ill, with generalized weakness, had a mechanical fall, and fell onto her right side. In the ED, patient was noted to have a sacral fracture, orthopedics were consulted, with no surgical intervention was recommended. The pt was transferred to the care of ARU, Dr Hussein, 10/19/18. Sacral fracture, S2 fracture. No intervention recommended as per Orthopedics. PT/OT as per Dr Hussein. Pain control as per Dr Hussein. Bowel care as per Dr Hussein Pt was started on po prednisone as per PCP 10/13/18 for sciatica. DVT prophylaxis. SQ Lovenox. UTI. E. Coli Blood Culture neg. Finish course of antibiotics, po Cefdinir. Hypertension Norvasc, Lozol, Aldactone, Losartan. BP this AM 128/80. Monitor. Leukocytosis. Likely steroid effect, trending down today. Pt is afebrile. Monitor. VS, I&O, 24H, Fishbone Vital Signs/I&O Vital Signs Date Time Temp Pulse Resp B/P (MAP) Pulse Ox O2 Delivery O2 Flow Rate FiO2 10/21/18 10:38 128/80 10/21/18 08:54 18 Room Air 10/21/18 08:24 97 10/21/18 06:00 97.0 72 I&O- Last 24 Hours up to 6 AM 10/21/18 06:00 Intake Total 960 ml Output Total 1025 ml Balance -65 ml Laboratory Data 24H LABS Laboratory Tests 2 10/20/18 23:54: Urine Color YELLOW, Urine Appearance HAZY, Urine pH 5.0, Urine Specific [place] 1.020, Urine Protein NEGATIVE, Urine Glucose (UA) NEGATIVE, Urine Ketones NEGATIVE, Urine Blood NEGATIVE, Urine Nitrite NEGATIVE, Urine Bilirubin NEGATIVE, Urine Urobilinogen 0.2, Urine Leukocyte Esterase TRACEH, Urine WBC (Auto) 2, Urine RBC (Auto) 2, Urine Hyaline Casts (Auto) 4, Urine Bacteria (Auto) NEGATIVE, Urine Squamous Epithelial Cells 1, Urine Mucus (Auto) SMALL, Urine Sperm (Auto) 10/21/18 06:22: Immature Granulocyte % (Auto) 1.2, White Blood Count 12.1H, Red Blood Count 4.36, Hemoglobin 13.3, Hematocrit 39.8, Mean Corpuscular Volume 91.3, Mean Corpuscular Hemoglobin 30.5, Mean Corpuscular Hemoglobin Concent 33.4, Red Cell Distribution Width 13.0, Platelet Count 509H, Neutrophils (%) (Auto) 82.2H, Lymphocytes (%) (Auto) 10.4L, Monocytes (%) (Auto) 5.9H, Eosinophils (%) (Auto) 0.1, Basophils (%) (Auto) 0.2, Neutrophils # (Auto) 9.9H, Lymphocytes # (Auto) 1.3L, Monocytes # (Auto) 0.7, Eosinophils # (Auto) 0.0, Basophils # (Auto) 0.0, Nucleated Red Blood Cells % (auto) 0.0, Anion Gap 7L, Glomerular Filtration Rate > 60.0, Blood Urea Nitrogen 24H, Creatinine 0.73, Sodium Level 136, Potassium Level 4.0, Chloride Level 99, Carbon Dioxide Level 30, Calcium Level 9.7 CBC/BMP Laboratory Tests 10/21/18 06:22 Red Blood Count 4.36, Mean Corpuscular Volume 91.3, Mean Corpuscular Hemoglobin 30.5, Mean Corpuscular Hemoglobin Concent 33.4, Red Cell Distribution Width 13.0, Neutrophils (%) (Auto) 82.2 H, Lymphocytes (%) (Auto) 10.4 L, Monocytes (%) (Auto) 5.9 H, Eosinophils (%) (Auto) 0.1, Basophils (%) (Auto) 0.2, Neutrophils # (Auto) 9.9 H, Lymphocytes # (Auto) 1.3 L, Monocytes # (Auto) 0.7, Eosinophils # (Auto) 0.0, Basophils # (Auto) 0.0, Calcium Level 9.7 Microbiology Microbiology 10/20/18 Urine Culture, Received Pending Nohemy Castillo Oct 21, 2018 11:23
[2018-10-21 14:00] VITALS: BP 119/59
[2018-10-21] MEDS ORDERED: ULTRACET TAB PO PRN (14:15)
--- NOTE | 2018-10-21 14:42 | IPNPDOC ---
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 She feels constipated and drinking prune emigdio with butter. REVIEW OF SYSTEMS: The following is a completed review of systems and has been reviewed. Review of systems otherwise unremarkable. PAIN: Patient self reports left buttock pain EYES: Negative for recent vision loss EARS, NOSE, & THROAT: negative for rhinorrhea or dysphagia CARDIOVASCULAR: +HTN, denies chest pain or palpitations PULMONARY: Negative. Denies shortness of breath GASTROINTESTINAL: Negative for diarrhea, +constipation GENITOURINARY: negative for dysuria, +UTI MUSCULOSKELETAL: right sacral fracture NEUROLOGICAL: Left lumbar radiculopathy SKIN: intact PSYCHIATRIC: Unremarkable All other review of systems found to be negative. PHYSICAL EXAMINATION: VITAL SIGNS: Please see below. GENERAL: Pleasant and cooperative. No acute distress. Alert and oriented times three. HEENT: PERRL. Extraocular movements intact. Clear conjunctiva CARDIOVASCULAR: Regular rate and rhythm. No murmurs, rubs, or gallops LUNGS: Clear to auscultation bilaterally. No wheezes. No rhonchi ABDOMEN: Soft, nontender, nondistended. Positive bowel sounds. Normal active bowel sounds NEUROLOGICAL: Alert and oriented times three. Cranial nerves II through XII grossly intact. Sensation intact throughout all 4 extremities except diminished left L5 distribution EXTREMITIES:5\5 strength bilateral upper extremities. 5\5 strength right lower extremity. 5/5 strength in left lower extremity, except 4+/5 strength left ankle DF and EHL (-) Jere's bilat ASSESSMENT:87-year-old F with past medical history of HTN and HLD who presents status post fall with right sacral fracture. PLAN: 1. Rehab: PT/OT, assess for DME needs, able to ambulate with RW stand-by assist 2. Ortho: right sacral fracture and S2 stable fracture, WBAT 3. Neuro: left sided leg pain, clinical picture consistent with an active L5 radiculopathy, will taper steroids from 20mg BID to 10mg BID for now -responding well to gabapentin, will increase dose to 300mg TID -continue pillow under left knee 4. Cardio: pmh HTN and HLD: continue home meds, medicine consulted 5. : +E. Coli UTI s/p Ceftriaxone, continue oral Cefdinir x5 days and followup admission Ucx 6. DVT ppx: on lovenox and teds 7. Pain: Will d/c percocet and change tramadol to Ultracet for pain, continue increased dose of gabapentin 7. Dispo: tentatively 10-26-18 to the [place], progressing towards goals Allergies Coded Allergies: No Known Allergies (Unverified , 01/28/13) Vital Signs Vital Signs Date Time Temp Pulse Resp B/P (MAP) Pulse Ox O2 Delivery O2 Flow Rate FiO2 10/21/18 12:55 18 Room Air 10/21/18 10:38 128/80 10/21/18 08:24 97 10/21/18 06:00 97.0 72 Laboratory Data CBC/BMP Laboratory Tests 10/21/18 06:22 Red Blood Count 4.36, Mean Corpuscular Volume 91.3, Mean Corpuscular Hemoglobin 30.5, Mean Corpuscular Hemoglobin Concent 33.4, Red Cell Distribution Width 13.0, Neutrophils (%) (Auto) 82.2 H, Lymphocytes (%) (Auto) 10.4 L, Monocytes (%) (Auto) 5.9 H, Eosinophils (%) (Auto) 0.1, Basophils (%) (Auto) 0.2, Neutrophils # (Auto) 9.9 H, Lymphocytes # (Auto) 1.3 L, Monocytes # (Auto) 0.7, Eosinophils # (Auto) 0.0, Basophils # (Auto) 0.0, Calcium Level 9.7 Labs 24H Laboratory Tests 2 10/20/18 23:54: Urine Color YELLOW, Urine Appearance HAZY, Urine pH 5.0, Urine Specific [place] 1.020, Urine Protein NEGATIVE, Urine Glucose (UA) NEGATIVE, Urine Ketones NEGATIVE, Urine Blood NEGATIVE, Urine Nitrite NEGATIVE, Urine Bilirubin NEGATIVE, Urine Urobilinogen 0.2, Urine Leukocyte Esterase TRACEH, Urine WBC (Auto) 2, Urine RBC (Auto) 2, Urine Hyaline Casts (Auto) 4, Urine Bacteria (Auto) NEGATIVE, Urine Squamous Epithelial Cells 1, Urine Mucus (Auto) SMALL, Urine Sperm (Auto) 10/21/18 06:22: Immature Granulocyte % (Auto) 1.2, White Blood Count 12.1H, Red Blood Count 4.36, Hemoglobin 13.3, Hematocrit 39.8, Mean Corpuscular Volume 91.3, Mean Corpuscular Hemoglobin 30.5, Mean Corpuscular Hemoglobin Concent 33.4, Red Cell Distribution Width 13.0, Platelet Count 509H, Neutrophils (%) (Auto) 82.2H, Lymphocytes (%) (Auto) 10.4L, Monocytes (%) (Auto) 5.9H, Eosinophils (%) (Auto) 0.1, Basophils (%) (Auto) 0.2, Neutrophils # (Auto) 9.9H, Lymphocytes # (Auto) 1.3L, Monocytes # (Auto) 0.7, Eosinophils # (Auto) 0.0, Basophils # (Auto) 0.0, Nucleated Red Blood Cells % (auto) 0.0, Anion Gap 7L, Glomerular Filtration Rate > 60.0, Blood Urea Nitrogen 24H, Creatinine 0.73, Sodium Level 136, Potassium Level 4.0, Chloride Level 99, Carbon Dioxide Level 30, Calcium Level 9.7 Microbiology Microbiology 10/20/18 Urine Culture, Received Pending Current Medications Current Medications Current Medications Acetaminophen (Tylenol Tab) 650 mg Q4HP PRN PO fever/MILD PAIN (PS 1-4); Start 10/19/18 at 16:30 Amlodipine Besylate (Norvasc) 5 mg DAILY@1000 PO Last administered on 10/21/18at 10:38; Start 10/20/18 at 10:00 Bisacodyl (Dulcolax Suppository) 10 mg DAILYPRN PRN [place] CONSTIPATION Last administered on 10/21/18at 10:38; Start 10/19/18 at 16:30 Bisacodyl (Dulcolax Tab) 5 mg DAILYPRN PRN PO CONSTIPATION; Start 10/19/18 at 16:30 Cefdinir (Omnicef) 300 mg BID PO Last administered on 10/21/18at 08:22; Start 10/19/18 at 21:00; Stop 10/24/18 at 09:01 Cyclobenzaprine HCl (Flexeril) 5 mg Q6HP PRN PO SPASMS; Start 10/19/18 at 16:30; Stop 10/20/18 at 15:38; Status DC Enoxaparin Sodium (Lovenox) 40 mg DAILY SC Last administered on 10/21/18at 08:22; Start 10/20/18 at 09:00 Gabapentin (Neurontin) 300 mg QHS PO Last administered on 10/20/18at 20:28; Start 10/20/18 at 21:00; Stop 10/21/18 at 14:08; Status DC Gabapentin (Neurontin) 300 mg TID PO ; Start 10/21/18 at 16:00 Home Med (Med Rec Complete!) ASDIRECTED XX ; Start 10/20/18 at 11:15; Stop 10/20/18 at 11:15; Status DC Indapamide (Lozol) 1.25 mg DAILY PO Last administered on 10/21/18at 08:22; Start 10/20/18 at 09:00 Magnesium Hydroxide (Milk Of Magnesia) 30 ml DAILYPRN PRN PO CONSTIPATION; Start 10/19/18 at 16:30 Ondansetron HCl (Zofran) 4 mg Q6HP PRN PO NAUSEA; Start 10/19/18 at 16:30 Oxycodone/ Acetaminophen (Percocet 5mg/ 325mg Tablet) 1 tab Q4HP PRN PO MILD/MODERATE PAIN (PS 8-10) Last administered on 10/21/18at 12:25; Start 10/19/18 at 16:30; Stop 10/21/18 at 14:08; Status DC Pantoprazole Sodium (Protonix) 40 mg DAILY PO Last administered on 10/21/18at 08:22; Start 10/20/18 at 09:00 Prednisone (Deltasone) 10 mg BID PO ; Start 10/22/18 at 21:00 Prednisone (Deltasone) 20 mg BID PO Last administered on 10/21/18at 08:25; Start 10/19/18 at 21:00; Stop 10/21/18 at 22:00 Senna/Docusate Sodium (Senokot S) 1 tab BID PO Last administered on 10/21/18at 08:24; Start 10/19/18 at 21:00 Spironolactone (Aldactone) 25 mg QAM PO Last administered on 10/21/18at 08:23; Start 10/20/18 at 09:00 Tramadol HCl (Ultram) 50 mg Q6HP PRN PO MODERATE PAIN (PS 5-7) Last administered on 10/20/18at 11:16; Start 10/19/18 at 16:30; Stop 10/21/18 at 14:08; Status DC Tramadol/ Acetaminophen (Ultracet 37.5/ 325 Mg) 1 tab Q4HP PRN PO MILD PAIN (PS 6-10); Start 10/21/18 at 14:15 Valsartan (Diovan) 320 mg DAILY PO Last administered on 10/21/18at 08:25; Start 10/20/18 at 09:00 TYRELL REEVES MD Oct 21, 2018 14:42
[2018-10-21] MEDS: GABAPENTIN 300 MG CAP PO SCH ×2 (15:57→21:32)
[2018-10-21 20:36] VITALS: BP 124/59
[2018-10-22 05:08] VITALS: BP 136/65
[2018-10-22 08:00] VITALS: BP 130/67
[2018-10-22] MEDS: SENOKOT S TAB PO SCH ×2 (08:07→21:09)
[2018-10-22] MEDS: INDAPAMIDE 1.25MG TABLET PO SCH (08:07)
[2018-10-22] MEDS: GABAPENTIN 300 MG CAP PO SCH ×3 (08:08→21:09)
[2018-10-22] MEDS: VALSARTAN 80 MG TAB (DIOVAN) PO SCH (08:08)
[2018-10-22] MEDS: PANTOPRAZOLE 40MG TAB (PROTONIX) PO SCH (08:08)
[2018-10-22] MEDS: ENOXAPARIN 40 MG/0.4 ML SYRINGE (J1650) SC SCH (08:08)
[2018-10-22] MEDS: CEFDINIR 300 MG CAP (OMNICEF) PO SCH ×2 (08:09→21:09)
[2018-10-22] MEDS: SPIRONOLACTONE 25 MG TAB PO SCH (08:09)
[2018-10-22] MEDS: ACETAMINOPHEN TAB 650MG DOSE (2X325MG) PO PRN ×2 (08:09→12:28)
[2018-10-22] MEDS: amLODIPine 5 MG TAB PO SCH (10:00)
--- NOTE | 2018-10-22 13:47 | IPNPDOC ---
Date Seen The patient was seen on 10/22/18. Progress Note HPI: This is a 87-year-old female who presented 10/17/18 with back pain and generalized weakness. While getting out of the shower on the day of admission, the patient felt generally ill, with generalized weakness, had a mechanical fall, and fell onto her right side. The pt had been started on PO prednisone and tramadol as per PCP 10/13/18 for sciatica. In the ED, patient was noted to have a sacral fracture, orthopedics were consulted, with no surgical intervention was recommended. The pt was found to have E coli UTI and was treated with IV Rocephin. The pt was transferred to the care of ARU, Dr Hussein, 10/19/18. Pt states pain is controlled. She has been OOB with therapy. Denies any fevers, chills, weakness, fatigue, Headache, Chest Pain, Shortness of breath, cough, palpitations, abdominal pain, N/V/D or changes in bowel or bladder habits. PMHx: HTN DLP Back pain/Sciatica PSHX: Hysterectomy PE: GEN: 87yoF, appears stated age. Well-nourished, well developed. No acute distress. Alert and oriented x 3. Pleasant, interactive. HEENT: Normocephalic, atraumatic. Pupils are equal, round, and reactive to light. Extraocular movements are intact. No nystagmus appreciated. Sclera are nonicteric. Conjunctiva without injection. Nose midline. Nasal turbinates without bogginess. EACs both patent BL. TMs both visualized and meng with good cone of light, no bulging or erythema. No facial asymmetry. Moist mucous membranes. Dentition fair. Pharynx pink and moist, no cobblestoning. Neck supple, trachea midline. No lymphadenopathy or thyromegaly appreciated. CHEST: Regular rate and rhythm, +S1, +S2 LUNGS: Clear to auscultation bilaterally. No wheezes, rales, or rhonchi. Breathing appears symmetric and easy. Patient is speaking in full sentences. No accessory muscle use. ABD: Round, soft, non-tender, non-distended. +Bowel sounds throughout. No rebound or guarding. No costovertebral angle tenderness. EXT: Pulses 2+ bilaterally dorsalis pedis and radial. No lower extremity edema appreciated. SKIN: [place], dry, warm. Capillary refill <2sec. No rashes. NEURO: Alert and oriented x 3. Cranial nerves III-XII are intact. No focal deficits appreciated. A&P: This is a 87-year-old female who presented 10/17/18 with back pain and generalized weakness. While getting out of the shower on the day of admission, the patient felt generally ill, with generalized weakness, had a mechanical fall, and fell onto her right side. In the ED, patient was noted to have a sacral fracture, orthopedics were consulted, with no surgical intervention was recommended. The pt was transferred to the care of ARU, Dr Hussein, 10/19/18. Sacral fracture, S2 fracture. No intervention recommended as per Orthopedics. PT/OT as per Dr Hussein. Pain control as per Dr Hussein. Bowel care as per Dr Hussein Pt was started on po prednisone as per PCP 10/13/18 for sciatica. Dose is currently being weaned. DVT prophylaxis. SQ Lovenox. Urinary retention. Mgmt as per ARU. Repeat UC 10/20 18 neg. IC as needed. Continue to monitor bladder scans. UTI. E. Coli Blood Culture neg. repeat UC 10/20 neg. Finish course of antibiotics, po Cefdinir. Hypertension Norvasc 5 mg daily with hold parameter, Lozol, Aldactone, Losartan 320 mg daily with hold paramter. BP this AM 99/55 at 10 AM, currently 114 SBP. Monitor. Leukocytosis. Possibly steroid effect, trending down. Pt is afebrile. Monitor. VS, I&O, 24H, Fishbone Vital Signs/I&O Vital Signs Date Time Temp Pulse Resp B/P (MAP) Pulse Ox O2 Delivery O2 Flow Rate FiO2 10/22/18 10:00 72 99/55 10/22/18 08:00 97.5 18 97 Room Air I&O- Last 24 Hours up to 6 AM 10/22/18 06:00 Intake Total 845 ml Output Total 750 ml Balance 95 ml Laboratory Data Microbiology Microbiology 10/20/18 Urine Culture - Final, Complete Nohemy Castillo Oct 22, 2018 13:47
[2018-10-22 14:00] VITALS: BP 114/53
--- NOTE | 2018-10-22 14:49 | IPNPDOC ---
PM&R Progress Note DATE OF SERVICE: Oct 22, 2018 [employer] Progress Note Subjective: Patient reports she feels her pain is ok off of the percocet and that she felt woozy after taking Tramadol. She thinks the gabapentin is working. She reports she usually does not have the urge to urinate until her bladder is very full then has difficulty getting to the bathroom on time. REVIEW OF SYSTEMS: The following is a completed review of systems and has been reviewed. Review of systems otherwise unremarkable. PAIN: Patient self reports left buttock pain EYES: Negative for recent vision loss EARS, NOSE, & THROAT: negative for rhinorrhea or dysphagia CARDIOVASCULAR: +HTN, denies chest pain or palpitations PULMONARY: Negative. Denies shortness of breath GASTROINTESTINAL: Negative for diarrhea, +constipation GENITOURINARY: negative for dysuria, +UTI MUSCULOSKELETAL: right sacral fracture NEUROLOGICAL: Left lumbar radiculopathy SKIN: intact PSYCHIATRIC: Unremarkable All other review of systems found to be negative. PHYSICAL EXAMINATION: VITAL SIGNS: Please see below. GENERAL: Pleasant and cooperative. No acute distress. Alert and oriented times three. HEENT: PERRL. Extraocular movements intact. Clear conjunctiva CARDIOVASCULAR: Regular rate and rhythm. No murmurs, rubs, or gallops LUNGS: Clear to auscultation bilaterally. No wheezes. No rhonchi ABDOMEN: Soft, nontender, nondistended. Positive bowel sounds. Normal active bowel sounds NEUROLOGICAL: Alert and oriented times three. Cranial nerves II through XII grossly intact. Sensation intact throughout all 4 extremities except diminished left L5 distribution EXTREMITIES:5\5 strength bilateral upper extremities. 5\5 strength right lower extremity. 5/5 strength in left lower extremity, except 4+/5 strength left ankle DF and EHL (-) Jere's bilat ASSESSMENT:87-year-old F with past medical history of HTN and HLD who presents status post fall with right sacral fracture. PLAN: 1. Rehab: PT/OT, assess for DME needs, able to ambulate further with RW, having some balance difficulties in OT and not safe at this point in shower 2. Ortho: right sacral fracture and S2 stable fracture, WBAT 3. Neuro: left sided leg pain, clinical picture consistent with an active L5 radiculopathy, will taper steroids from 20mg BID to 10mg BID for now -responding well to gabapentin, will increase dose to 400mg TID -continue pillow under left knee 4. Cardio: pmh HTN and HLD: continue home meds, medicine consulted 5. : +E. Coli UTI s/p Ceftriaxone, continue oral Cefdinir, repeat Ucx negative, Patient having urinary retention, reports she usually has difficulty urinating at home, currently off of opioids which may have exacerbated what sounds like some retention prior to admission 6. DVT ppx: on lovenox and teds 7. Pain:s/p percocet, unable to tolerate tramadol, will continue tylenol and increase gabapentin 7. Dispo:TBD to the [facility], progressing towards goals Allergies Coded Allergies: No Known Allergies (Unverified , 01/28/13) Vital Signs Vital Signs Date Time Temp Pulse Resp B/P (MAP) Pulse Ox O2 Delivery O2 Flow Rate FiO2 10/22/18 14:00 98.8 76 15 114/53 (73) 96 Room Air Microbiology Microbiology 10/20/18 Urine Culture - Final, Complete Current Medications Current Medications Current Medications Acetaminophen (Tylenol Tab) 650 mg Q4HP PRN PO fever/MILD PAIN (PS 1-4) Last administered on 10/22/18at 12:28; Start 10/19/18 at 16:30 Amlodipine Besylate (Norvasc) 5 mg DAILY@1000 PO Last administered on 10/21/18at 10:38; Start 10/20/18 at 10:00 Bisacodyl (Dulcolax Suppository) 10 mg DAILYPRN PRN [place] CONSTIPATION Last administered on 10/21/18at 15:58; Start 10/19/18 at 16:30 Bisacodyl (Dulcolax Tab) 5 mg DAILYPRN PRN PO CONSTIPATION; Start 10/19/18 at 16:30 Cefdinir (Omnicef) 300 mg BID PO Last administered on 10/22/18at 08:09; Start 10/19/18 at 21:00; Stop 10/24/18 at 09:01 Cyclobenzaprine HCl (Flexeril) 5 mg Q6HP PRN PO SPASMS; Start 10/19/18 at 16:30; Stop 10/20/18 at 15:38; Status DC Enoxaparin Sodium (Lovenox) 40 mg DAILY SC Last administered on 10/22/18at 08:08; Start 10/20/18 at 09:00 Gabapentin (Neurontin) 300 mg QHS PO Last administered on 10/20/18at 20:28; Start 10/20/18 at 21:00; Stop 10/21/18 at 14:08; Status DC Gabapentin (Neurontin) 300 mg TID PO Last administered on 10/22/18at 08:08; Start 10/21/18 at 16:00 Home Med (Med Rec Complete!) ASDIRECTED XX ; Start 10/20/18 at 11:15; Stop 10/20/18 at 11:15; Status DC Indapamide (Lozol) 1.25 mg DAILY PO Last administered on 10/22/18at 08:07; Start 10/20/18 at 09:00 Magnesium Hydroxide (Milk Of Magnesia) 30 ml DAILYPRN PRN PO CONSTIPATION; Start 10/19/18 at 16:30 Ondansetron HCl (Zofran) 4 mg Q6HP PRN PO NAUSEA; Start 10/19/18 at 16:30 Oxycodone/ Acetaminophen (Percocet 5mg/ 325mg Tablet) 1 tab Q4HP PRN PO MILD/MODERATE PAIN (PS 8-10) Last administered on 10/21/18at 12:25; Start 10/19 at 16:30; Stop 10/21/18 at 14:08; Status DC Pantoprazole Sodium (Protonix) 40 mg DAILY PO Last administered on 10/22/18at 08:08; Start 10/20/18 at 09:00 Prednisone (Deltasone) 10 mg BID PO ; Start 10/22/18 at 21:00 Prednisone (Deltasone) 20 mg BID PO Last administered on 10/21/18at 21:32; Start 10/19/18 at 21:00; Stop 10/21/18 at 22:00; Status DC Senna/Docusate Sodium (Senokot S) 1 tab BID PO Last administered on 10/22/18at 08:07; Start 10/19/18 at 21:00 Spironolactone (Aldactone) 25 mg QAM PO Last administered on 10/22/18at 08:09; Start 10/20/18 at 09:00 Tramadol HCl (Ultram) 50 mg Q6HP PRN PO MODERATE PAIN (PS 5-7) Last administered on 10/20/18at 11:16; Start 10/19/18 at 16:30; Stop 10/21/18 at 14:08; Status DC Tramadol/ Acetaminophen (Ultracet 37.5/ 325 Mg) 1 tab Q4HP PRN PO MILD PAIN (PS 6-10) Last administered on 10/21/18at 16:46; Start 10/21/18 at 14:15 Valsartan (Diovan) 320 mg DAILY PO Last administered on 10/22/18at 08:08; Start 10/20/18 at 09:00 TYRELL REEVES MD Oct 22, 2018 14:49
[2018-10-22] MEDS: predniSONE 10 MG TAB PO SCH (21:09)
[2018-10-22 21:38] VITALS: BP 106/54
[2018-10-23 05:59] VITALS: BP 115/68
[2018-10-23] MEDS: ACETAMINOPHEN TAB 650MG DOSE (2X325MG) PO PRN ×3 (06:21→16:29)
[2018-10-23] MEDS: SENOKOT S TAB PO SCH ×2 (09:32→20:47)
[2018-10-23] MEDS: predniSONE 10 MG TAB PO SCH ×2 (09:32→20:47)
[2018-10-23] MEDS: ENOXAPARIN 40 MG/0.4 ML SYRINGE (J1650) SC SCH (09:32)
[2018-10-23] MEDS: PANTOPRAZOLE 40MG TAB (PROTONIX) PO SCH (09:32)
[2018-10-23] MEDS: GABAPENTIN 300 MG CAP PO SCH ×2 (09:32→16:28)
[2018-10-23] MEDS: INDAPAMIDE 1.25MG TABLET PO SCH (09:33)
[2018-10-23] MEDS: SPIRONOLACTONE 25 MG TAB PO SCH (09:33)
[2018-10-23] MEDS: CEFDINIR 300 MG CAP (OMNICEF) PO SCH ×2 (09:33→20:46)
[2018-10-23] MEDS: VALSARTAN 80 MG TAB (DIOVAN) PO SCH (09:33)
[2018-10-23] MEDS: amLODIPine 5 MG TAB PO SCH (10:54)
[2018-10-23 14:00] VITALS: BP 108/58
--- NOTE | 2018-10-23 17:10 | IPNPDOC ---
PM&R Progress Note DATE OF SERVICE: Oct 23, 2018 [employer] Maker Progress Note Subjective: Patient reports she feels well overall and is open to trial of tamsulosin for retention. REVIEW OF SYSTEMS: The following is a completed review of systems and has been reviewed. Review of systems otherwise unremarkable. PAIN: Patient self reports left buttock pain EYES: Negative for recent vision loss EARS, NOSE, & THROAT: negative for rhinorrhea or dysphagia CARDIOVASCULAR: +HTN, denies chest pain or palpitations PULMONARY: Negative. Denies shortness of breath GASTROINTESTINAL: Negative for diarrhea, +constipation GENITOURINARY: negative for dysuria, +UTI MUSCULOSKELETAL: right sacral fracture NEUROLOGICAL: Left lumbar radiculopathy SKIN: intact PSYCHIATRIC: Unremarkable All other review of systems found to be negative. PHYSICAL EXAMINATION: VITAL SIGNS: Please see below. GENERAL: Pleasant and cooperative. No acute distress. Alert and oriented times three. HEENT: PERRL. Extraocular movements intact. Clear conjunctiva CARDIOVASCULAR: Regular rate and rhythm. No murmurs, rubs, or gallops LUNGS: Clear to auscultation bilaterally. No wheezes. No rhonchi ABDOMEN: Soft, nontender, nondistended. Positive bowel sounds. Normal active bowel sounds NEUROLOGICAL: Alert and oriented times three. Cranial nerves II through XII grossly intact. Sensation intact throughout all 4 extremities except diminished left L5 distribution EXTREMITIES:5\5 strength bilateral upper extremities. 5\5 strength right lower extremity. 5/5 strength in left lower extremity, except 4+/5 strength left ankle DF and EHL (-) Jere's bilat ASSESSMENT:87-year-old F with past medical history of HTN and HLD who presents status post fall with right sacral fracture. PLAN: 1. Rehab: PT/OT, assess for DME needs, able to ambulate further with RW, having some balance difficulties in OT and not safe at this point in shower 2. Ortho: right sacral fracture and S2 stable fracture, WBAT 3. Neuro: left sided leg pain, clinical picture consistent with an active L5 radiculopathy, will taper steroids from 20mg BID to 10mg BID for now -responding well to gabapentin, will increase dose to 400mg TID -continue pillow under left knee 4. Cardio: pmh HTN and HLD: continue home meds, medicine consulted 5. : +E. Coli UTI s/p Ceftriaxone, continue oral Cefdinir, repeat Ucx negative, Patient having urinary retention, reports she usually has difficulty urinating at home, currently off of opioids which may have exacerbated what sounds like some retention prior to admission- will start tamsulosin today, monitor for orthostatics 6. DVT ppx: on lovenox and teds 7. Pain:s/p percocet, unable to tolerate tramadol, will continue tylenol and continue gabapentin 7. Dispo:TBD to the [facility], progressing towards goals Allergies Coded Allergies: No Known Allergies (Unverified , 01/28/13) Vital Signs Vital Signs Date Time Temp Pulse Resp B/P (MAP) Pulse Ox O2 Delivery O2 Flow Rate FiO2 10/23/18 14:00 97.4 80 15 108/58 (75) 96 Room Air Microbiology Microbiology 10/20/18 Urine Culture - Final, Complete Current Medications Current Medications Current Medications Acetaminophen (Tylenol Tab) 650 mg Q4HP PRN PO fever/MILD PAIN (PS 1-4) Last ad ministered on 10/23/18at 16:29; Start 10/19/18 at 16:30 Amlodipine Besylate (Norvasc) 5 mg DAILY@1000 PO Last administered on 10/21/18at 10:38; Start 10/20/18 at 10:00 Bisacodyl (Dulcolax Suppository) 10 mg DAILYPRN PRN [place] CONSTIPATION Last administered on 10/21/18at 15:58; Start 10/19/18 at 16:30 Bisacodyl (Dulcolax Tab) 5 mg DAILYPRN PRN PO CONSTIPATION; Start 10/19/18 at 16:30 Cefdinir (Omnicef) 300 mg BID PO Last administered on 10/23/18at 09:33; Start 10/19/18 at 21:00; Stop 10/24/18 at 09:01 Cyclobenzaprine HCl (Flexeril) 5 mg Q6HP PRN PO SPASMS; Start 10/19/18 at 16:30; Stop 10/20/18 at 15:38; Status DC Enoxaparin Sodium (Lovenox) 40 mg DAILY SC Last administered on 10/23/18at 09:32; Start 10/20/18 at 09:00 Gabapentin (Neurontin) 300 mg QHS PO Last administered on 10/20/18at 20:28; Start 10/20/18 at 21:00; Stop 10/21/18 at 14:08; Status DC Gabapentin (Neurontin) 300 mg TID PO Last administered on 10/23/18at 16:28; Start 10/21/18 at 16:00 Home Med (Med Rec Complete!) ASDIRECTED XX ; Start 10/20/18 at 11:15; Stop 10/20/18 at 11:15; Status DC Indapamide (Lozol) 1.25 mg DAILY PO Last administered on 10/23/18at 09:33; Start 10/20/18 at 09:00 Magnesium Hydroxide (Milk Of Magnesia) 30 ml DAILYPRN PRN PO CONSTIPATION; Start 10/19/18 at 16:30 Ondansetron HCl (Zofran) 4 mg Q6HP PRN PO NAUSEA; Start 10/19/18 at 16:30 Oxycodone/ Acetaminophen (Percocet 5mg/ 325mg Tablet) 1 tab Q4HP PRN PO MILD/MODERATE PAIN (PS 8-10) Last administered on 10/21/18at 12:25; Start 10/19/18 at 16:30; Stop 10/21/18 at 14:08; Status DC Pantoprazole Sodium (Protonix) 40 mg DAILY PO Last administered on 10/23/18at 09:32; Start 10/20/18 at 09:00 Prednisone (Deltasone) 10 mg BID PO Last administered on 10/23/18at 09:32; Start 10/22/18 at 21:00 Prednisone (Deltasone) 20 mg BID PO Last administered on 10/21/18at 21:32; Start 10/19/18 at 21:00; Stop 10/21/18 at 22:00; Status DC Senna/Docusate Sodium (Senokot S) 1 tab BID PO Last administered on 10/23/18at 09:32; Start 10/19/18 at 21:00 Spironolactone (Aldactone) 25 mg QAM PO Last administered on 10/23/18at 09:33; Start 10/20/18 at 09:00 Tamsulosin HCl (Flomax) 0.4 mg QHS PO ; Start 10/23/18 at 21:00 Tramadol HCl (Ultram) 50 mg Q6HP PRN PO MODERATE PAIN (PS 5-7) Last administered on 10/20/18at 11:16; Start 10/19/18 at 16:30; Stop 10/21/18 at 14:08; Status DC Tramadol/ Acetaminophen (Ultracet 37.5/ 325 Mg) 1 tab Q4HP PRN PO MILD PAIN (PS 6-10) Last administered on 10/21/18at 16:46; Start 10/21/18 at 14:15; Stop 10/23/18 at 09:59; Status DC Valsartan (Diovan) 320 mg DAILY PO Last administered on 10/23/18at 09:33; Start 10/20/18 at 09:00 TYRELL REEVES MD Oct 23, 2018 17:10
[2018-10-23 20:00] VITALS: BP 111/56
[2018-10-23] MEDS: GABAPENTIN 400 MG CAP PO SCH (20:46)
[2018-10-23] MEDS: TAMSULOSIN 0.4 MG CAP PO SCH (20:46)
[2018-10-24 05:52] VITALS: BP 111/55
[2018-10-24 06:38] LABS: BASO # 0.1 10^3/uL (0.0-0.2); BASO % 0.6 % (0.0-1.0); EOS % 0.2 % (0.0-3.0); HEMATOCRIT 40.1 % (36.0-47.0); HEMOGLOBIN 13.4 g/dl (12.0-15.5); LYMPH # 0.9 10^3/uL (1.5-4.5); LYMPH % 10.7 % (24.0-44.0); MEAN CORPUSCULAR HEMOGLOBIN 30.8 pg (27.0-33.0); MEAN CORPUSCULAR HGB CONC 33.4 g/dl (32.0-36.5); MEAN CORPUSCULAR VOLUME 92.2 fl (80.0-96.0); MONO # 0.5 10^3/uL (0.0-0.8); MONO % 5.8 % (0.0-5.0); NEUTROPHILS % 79.9 % (36.0-66.0); PLATELET COUNT, AUTOMATED 435 10^3/uL (150-450); RED BLOOD COUNT 4.35 10^6/uL (4.00-5.40); WHITE BLOOD COUNT 8.8 10^3/uL (4.0-10.0)
[2018-10-24 07:11] LABS: CALCIUM LEVEL 9.3 MG/DL (8.8-10.2); CREATININE FOR GFR 1.07 MG/DL (0.55-1.30); GLOMERULAR FILTRATION RATE 51.6 (>32); POTASSIUM SERUM 3.8 MEQ/L (3.5-5.1)
[2018-10-24] MEDS: ACETAMINOPHEN TAB 650MG DOSE (2X325MG) PO PRN ×3 (07:58→16:56)
[2018-10-24] MEDS: VALSARTAN 80 MG TAB (DIOVAN) PO SCH (08:41)
[2018-10-24] MEDS: PANTOPRAZOLE 40MG TAB (PROTONIX) PO SCH (08:41)
[2018-10-24] MEDS: ENOXAPARIN 40 MG/0.4 ML SYRINGE (J1650) SC SCH (08:41)
[2018-10-24] MEDS: CEFDINIR 300 MG CAP (OMNICEF) PO SCH (08:42)
[2018-10-24] MEDS: SENOKOT S TAB PO SCH ×2 (08:42→21:07)
[2018-10-24] MEDS: SPIRONOLACTONE 25 MG TAB PO SCH (08:42)
[2018-10-24] MEDS: INDAPAMIDE 1.25MG TABLET PO SCH (08:42)
[2018-10-24] MEDS: GABAPENTIN 400 MG CAP PO SCH ×3 (08:42→21:07)
[2018-10-24] MEDS: predniSONE 10 MG TAB PO SCH ×2 (08:42→21:07)
[2018-10-24] MEDS: amLODIPine 5 MG TAB PO SCH (10:00)
[2018-10-24 14:00] VITALS: BP 108/54
--- NOTE | 2018-10-24 14:35 | IPNPDOC ---
Text Note Date of Service The patient was seen on 10/24/18. NOTE Subjective: Patient is an 88-year-old female with a PMHx of HTN, DLP and chronic back pain/sciatica who presented to the ER on 10/17/2018 after she had experienced a mechanical fall. In the emergency room, patient was noted to have a sacral fracture. Orthopedic surgery was consulted, no surgical interventions were recommended. Patient was also found to have urinary tract infection with Escherichia coli and was treated with IV Rocephin and transitioned to Cefdinir. Patient was eventually transferred to acute rehabilitation unit on 10/19 for further rehabilitation. Hospitalist service work consultation for medical comanagement. Patient was seen and examined at the bedside. Currently patient has no new complaints. . She denies any chest pain, shortness of breath, palpitations, nausea, vomiting, abdominal pain, constipation, diarrhea or discomfort with urination Objective: Vitals (See below) General: Lying in bed, no acute distress, comfortable, AAOx3 HEENT: NC, AT CVS: RRR, +S1S2 Lungs: Fair air entry b/l, -w/r/r Abdomen: Soft, ND, NT Extremities: - Edema, - Calf tenderness Assessment and plan: Sacral S2 fracture - likely 2/2 mechanical fall - Orthopedic surgery has evaluated patient and has recommended no surgical intervention - Physical therapy, pain control, bowel care as per acute rehabilitation unit Sciatica / Chronic back pain - Has received corticosteroids as an outpatient; that were initiated on 10/13/18 - c/w Gabapentin - Will continue with prednisone here and continue to taper down Urinary retention - Will continue to monitor with bladder scans - c/w Tamsulosin Hx of UTI - Urine culture 10/17: E. coli - Urine culture 10/20: Negative - s/p Ceftriaxone; s/p Cefdinir s/p Leukocytosis HTN - BP appears to be on the lower limits of normal - Will DC spironolactone - Will reduce Valsartan dose Elevation of BUN / Cr - possibly 2/2 hypovolemia - Will discontinue spironolactone - Advise increased oral hydration - Will continue to monitor GI prophylaxis - c/w Protonix DVT prophylaxis - c/w Lovenox VS,Fishbone, I+O VS, Fishbone, I+O Laboratory Tests 10/24/18 06:05 Red Blood Count 4.35, Mean Corpuscular Volume 92.2, Mean Corpuscular Hemoglobin 30.8, Mean Corpuscular Hemoglobin Concent 33.4, Red Cell Distribution Width 13.5, Neutrophils (%) (Auto) 79.9 H, Lymphocytes (%) (Auto) 10.7 L, Monocytes (%) (Auto) 5.8 H, Eosinophils (%) (Auto) 0.2, Basophils (%) (Auto) 0.6, Neutrophils # (Auto) 7.0, Lymphocytes # (Auto) 0.9 L, Monocytes # (Auto) 0.5, Eosinophils # (Auto) 0.0, Basophils # (Auto) 0.1, Calcium Level 9.3 Vital Signs Date Time Temp Pulse Resp B/P (MAP) Pulse Ox O2 Delivery O2 Flow Rate FiO2 10/24/18 10:00 78 108/55 10/24/18 05:52 97.3 16 96 Room Air I&O- Last 24 Hours up to 6 AM 10/24/18 06:00 Intake Total 1560 ml Output Total 2250 ml Balance -690 ml GOMEZ BAKER MD Oct 24, 2018 14:35
[2018-10-24] MEDS ORDERED: NS 1,000 ML IV ONE (16:45)
[2018-10-24 20:00] VITALS: BP 121/86
[2018-10-24] MEDS: TAMSULOSIN 0.4 MG CAP PO SCH (21:07)
[2018-10-25] MEDS: ACETAMINOPHEN TAB 650MG DOSE (2X325MG) PO PRN ×3 (03:41→21:02)
[2018-10-25 06:00] VITALS: BP 127/58
[2018-10-25 07:19] LABS: CALCIUM LEVEL 9.4 MG/DL (8.8-10.2); CREATININE FOR GFR 1.03 MG/DL (0.55-1.30); POTASSIUM SERUM 4.4 MEQ/L (3.5-5.1)
[2018-10-25] MEDS: PANTOPRAZOLE 40MG TAB (PROTONIX) PO SCH (09:40)
[2018-10-25] MEDS: ENOXAPARIN 40 MG/0.4 ML SYRINGE (J1650) SC SCH (09:40)
[2018-10-25] MEDS: SENOKOT S TAB PO SCH ×2 (09:40→21:00)
[2018-10-25] MEDS: predniSONE 10 MG TAB PO SCH ×2 (09:41→21:00)
[2018-10-25] MEDS: GABAPENTIN 400 MG CAP PO SCH ×3 (09:41→21:00)
[2018-10-25] MEDS: VALSARTAN 80 MG TAB (DIOVAN) PO SCH (09:42)
[2018-10-25] MEDS: INDAPAMIDE 1.25MG TABLET PO SCH (09:42)
--- NOTE | 2018-10-25 11:02 | IPNPDOC ---
Text Note Date of Service The patient was seen on 10/25/18. NOTE Subjective: Patient is an 88-year-old female with a PMHx of HTN, DLP and chronic back pain/sciatica who presented to the ER on 10/17/2018 after she had experienced a mechanical fall. In the emergency room, patient was noted to have a sacral fracture. Orthopedic surgery was consulted, no surgical interventions were recommended. Patient was also found to have urinary tract infection with Escherichia coli and was treated with IV Rocephin and transitioned to Cefdinir. Patient was eventually transferred to acute rehabilitation unit on 10/19 for further rehabilitation. Hospitalist service work consultation for medical comanagement. Patient was seen and examined at the bedside. Currently patient has no complaints. Has been working with physical therapy. Denies any dizziness, lightheadedness or confusion. Has no plates of shortness of breath, chest pain or palpitations. Has not experienced any nausea, vomiting, abdominal pain or diarrhea. Have still frieda experiencing difficulty with urination and have required straight catheterization. Objective: Vitals (See below) General: Lying in bed, no acute distress, comfortable, AAOx3 HEENT: NC, AT CVS: RRR, +S1S2 Lungs: Fair air entry b/l, auscultations without any wheezing, rales or rhonchi Abdomen: Soft, ND, nontender Extremities: No evidence of lower extremity edema, - Calf tenderness Assessment and plan: Sacral S2 fracture - likely 2/2 mechanical fall - Orthopedic surgery has evaluated patient and has recommended no surgical intervention - Physical therapy, pain control, bowel care as per acute rehabilitation unit Sciatica / Chronic back pain - Has received corticosteroids as an outpatient which was initiated on 10/13/18 - c/w Gabapentin - c/w prednisone here taper Urinary retention - Will continue to monitor with bladder scans - c/w Tamsulosin Hx of UTI - Urine culture 10/17: E. coli - Urine culture 10/20: Negative - s/p Ceftriaxone; s/p Cefdinir s/p Leukocytosis HTN - BP appears to be on the lower limits of normal - s/p Spironolactone; c/w adjusted dose of Valsartan dose Elevation of BUN / Cr - possibly 2/2 hypovolemia - s/p spironolactone - s/p IV fluid hydration - Avoid nephrotoxic medications - Suspect normalization of Cr tomorrow AM GI prophylaxis - c/w Protonix DVT prophylaxis - c/w Lovenox VS,Fishbone, I+O VS, Fishbone, I+O Laboratory Tests 10/25/18 06:06 Calcium Level 9.4 Vital Signs Date Time Temp Pulse Resp B/P (MAP) Pulse Ox O2 Delivery O2 Flow Rate FiO2 10/25/18 09:42 127/58 10/25/18 06:00 96.9 73 18 96 Room Air I&O- Last 24 Hours up to 6 AM 10/25/18 06:00 Intake Total 2900 ml Output Total 1650 ml Balance 1250 ml GOMEZ BAKER MD Oct 25, 2018 11:02
[2018-10-25] MEDS: amLODIPine 5 MG TAB PO SCH (11:13)
[2018-10-25 14:00] VITALS: BP 127/59
[2018-10-25 20:00] VITALS: BP 130/58
[2018-10-25] MEDS: TAMSULOSIN 0.4 MG CAP PO SCH (21:00)
[2018-10-26 06:00] VITALS: BP 128/62
[2018-10-26] MEDS: ACETAMINOPHEN TAB 650MG DOSE (2X325MG) PO PRN ×2 (06:43→12:27)
[2018-10-26] MEDS: ENOXAPARIN 40 MG/0.4 ML SYRINGE (J1650) SC SCH (08:07)
[2018-10-26] MEDS: GABAPENTIN 400 MG CAP PO SCH ×3 (08:08→20:58)
[2018-10-26] MEDS: VALSARTAN 80 MG TAB (DIOVAN) PO SCH (08:08)
[2018-10-26] MEDS: PANTOPRAZOLE 40MG TAB (PROTONIX) PO SCH (08:08)
[2018-10-26] MEDS: INDAPAMIDE 1.25MG TABLET PO SCH (08:08)
[2018-10-26] MEDS: predniSONE 10 MG TAB PO SCH ×2 (08:08→20:58)
[2018-10-26] MEDS: SENOKOT S TAB PO SCH ×2 (08:09→20:58)
[2018-10-26 08:36] LABS: CALCIUM LEVEL 9.7 MG/DL (8.8-10.2); CREATININE FOR GFR 0.97 MG/DL (0.55-1.30); GLOMERULAR FILTRATION RATE 57.8 (>32); MAGNESIUM LEVEL 1.7 MG/DL (1.8-2.4)
[2018-10-26 08:45] VITALS: BP 148/66
--- NOTE | 2018-10-26 10:19 | IPNPDOC ---
Text Note Date of Service The patient was seen on 10/26/18. NOTE Subjective: Patient is an 88-year-old female with a PMHx of HTN, DLP and chronic back pain/sciatica who presented to the ER on 10/17/2018 after she had experienced a mechanical fall. In the emergency room, patient was noted to have a sacral fracture. Orthopedic surgery was consulted, no surgical interventions were recommended. Patient was also found to have urinary tract infection with Escherichia coli and was treated with IV Rocephin and transitioned to Cefdinir. Patient was eventually transferred to acute rehabilitation unit on 10/19 for further rehabilitation. Hospitalist service work consultation for medical comanagement. Patient was seen and examined at the bedside. Patient has no new complaints this morning. Has been working with physical therapy. She denies any chest pain, shortness of breath, palpitations, nausea, vomiting, abdominal pain, constipation or diarrhea. She does note that she still experiencing difficulty with urination and is requiring nursing for straight catheterization. Objective: Vitals (See below) General: Lying in bed, no acute distress, comfortable, AAOx3 HEENT: NC, AT CVS: RRR, +S1S2 Lungs: Fair air entry b/l, no evidence of wheezing, rhonchi or rales. Upon auscultation Abdomen: Soft, remains nontender and nondistended Extremities: Lower extremities, again did not reveal any evidence of edema, - Calf tenderness Assessment and plan: Sacral S2 fracture - likely 2/2 mechanical fall - Orthopedic surgery has evaluated patient and has recommended no surgical intervention - Physical therapy, pain control, bowel care as per acute rehabilitation unit Sciatica / Chronic back pain - Has received corticosteroids as an outpatient which was initiated on 10/13/18 - c/w Gabapentin - c/w Prednisone here taper Urinary retention - possibly 2/2 above - Patient continues to indicate that she experiences retention - Will continue to monitor with bladder scans - c/w Tamsulosin and straight catheterizations as required Hx of UTI - Urine culture 10/17: E. coli - Urine culture 10/20: Negative - s/p Ceftriaxone; s/p Cefdinir s/p Leukocytosis HTN - BP well controlled - s/p Spironolactone - c/w Amlodipine, and adjusted dose of Valsartan dose s/p Elevation of BUN / Cr - possibly 2/2 hypovolemia - s/p spironolactone - s/p IV fluid hydration - Avoid nephrotoxic medications - Will continue to monitor GI prophylaxis - c/w Protonix DVT prophylaxis - c/w Lovenox VS,Fishbone, I+O VS, Fishbone, I+O Laboratory Tests 10/26/18 07:52 Calcium Level 9.7 Vital Signs Date Time Temp Pulse Resp B/P (MAP) Pulse Ox O2 Delivery O2 Flow Rate FiO2 10/26/18 08:08 128/62 10/26/18 06:00 97.9 72 18 96 Room Air I&O- Last 24 Hours up to 6 AM 10/26/18 06:00 Intake Total 1180 ml Output Total 2150 ml Balance -970 ml GOMEZ BAKER MD Oct 26, 2018 10:19
[2018-10-26] MEDS: amLODIPine 5 MG TAB PO SCH (10:51)
[2018-10-26] MEDS ORDERED: MAG SULF 1GM/100ML (MAG RUN) 1 GM in APPROPRIATE DILUENT 1 EA IV ONE (11:00)
[2018-10-26 14:00] VITALS: BP 124/57
[2018-10-26 20:00] VITALS: BP 122/59
[2018-10-26] MEDS: TAMSULOSIN 0.4 MG CAP PO SCH (20:58)
[2018-10-27 06:00] VITALS: BP 133/63
[2018-10-27] MEDS: SENOKOT S TAB PO SCH ×2 (08:32→20:41)
[2018-10-27] MEDS: VALSARTAN 80 MG TAB (DIOVAN) PO SCH (08:32)
[2018-10-27] MEDS: ENOXAPARIN 40 MG/0.4 ML SYRINGE (J1650) SC SCH (08:32)
[2018-10-27] MEDS: PANTOPRAZOLE 40MG TAB (PROTONIX) PO SCH (08:33)
[2018-10-27] MEDS: INDAPAMIDE 1.25MG TABLET PO SCH (08:33)
[2018-10-27] MEDS: GABAPENTIN 400 MG CAP PO SCH ×3 (08:33→20:41)
[2018-10-27] MEDS: predniSONE 10 MG TAB PO SCH (08:33)
[2018-10-27] MEDS: ACETAMINOPHEN TAB 650MG DOSE (2X325MG) PO PRN ×2 (08:34→15:35)
[2018-10-27] MEDS: amLODIPine 5 MG TAB PO SCH (09:57)
--- NOTE | 2018-10-27 10:47 | IPNPDOC ---
Text Note Date of Service The patient was seen on 10/27/18. NOTE Subjective: Patient is an 88-year-old female with a PMHx of HTN, DLP and chronic back pain/sciatica who presented to the ER on 10/17/2018 after she had experienced a mechanical fall. In the emergency room, patient was noted to have a sacral fracture. Orthopedic surgery was consulted, no surgical interventions were recommended. Patient was also found to have urinary tract infection with Escherichia coli and was treated with IV Rocephin and transitioned to Cefdinir. Patient was eventually transferred to acute rehabilitation unit on 10/19 for further rehabilitation. Hospitalist service work consultation for medical comanagement. Patient was seen and examined at the bedside. Currently patient has no new complaints. She denies any nausea, vomiting, abdominal pain, constipation, diarrhea. She still has difficulty with urination and is requiring straight catheterization. She denies any chest pain, shortness of breath, cough or palpitations Objective: Vitals (See below) General: Lying in bed, no acute distress, comfortable, AAOx3 HEENT: NC, AT CVS: RRR, +S1S2 Lungs: Fair air entry b/l, -w/r/r Abdomen: Soft, NT/ND Extremities: LE without edema, - Calf tenderness Assessment and plan: Sacral S2 fracture - likely 2/2 mechanical fall - Orthopedic surgery has evaluated patient and has recommended no surgical intervention - Physical therapy, pain control, bowel care as per acute rehabilitation unit Sciatica / Chronic back pain - Has received corticosteroids as an outpatient which was initiated on 10/13/18 - c/w Gabapentin - c/w Prednisone taper Urinary retention - possibly 2/2 above - Patient continues to indicate that she experiences retention - Patient has noted that she doesn't feel the sensation of bladder fullness - c/w bladder scans - c/w Tamsulosin and straight catheterizations as required Hx of UTI - Urine culture 10/17: E. coli - Urine culture 10/20: Negative - s/p Ceftriaxone; s/p Cefdinir s/p Leukocytosis HTN - BP well controlled - s/p Spironolactone - c/w Amlodipine and Valsartan s/p Elevation of BUN / Cr - possibly 2/2 hypovolemia - s/p spironolactone - s/p IV fluid hydration - Avoid nephrotoxic medications GI prophylaxis - c/w Protonix DVT prophylaxis - c/w Lovenox VS,Fishbone, I+O VS, Fishbone, I+O Vital Signs Date Time Temp Pulse Resp B/P (MAP) Pulse Ox O2 Delivery O2 Flow Rate FiO2 10/27/18 09:57 108/72 10/27/18 06:00 97.3 77 18 96 Room Air I&O- Last 24 Hours up to 6 AM 10/27/18 06:00 Intake Total 700 ml Output Total 1150 ml Balance -450 ml GOMEZ BAKER MD Oct 27, 2018 10:47
[2018-10-27 14:00] VITALS: BP 149/66
[2018-10-27 20:00] VITALS: BP 114/59
[2018-10-27] MEDS: TAMSULOSIN 0.4 MG CAP PO SCH (20:41)
[2018-10-28] MEDS: ACETAMINOPHEN TAB 650MG DOSE (2X325MG) PO PRN ×3 (00:54→10:12)
[2018-10-28 05:59] VITALS: BP 112/54
[2018-10-28] MEDS: SENOKOT S TAB PO SCH (08:41)
[2018-10-28] MEDS: PANTOPRAZOLE 40MG TAB (PROTONIX) PO SCH (08:41)
[2018-10-28] MEDS: INDAPAMIDE 1.25MG TABLET PO SCH (08:42)
[2018-10-28] MEDS: predniSONE 10 MG TAB PO SCH (08:42)
[2018-10-28] MEDS: VALSARTAN 80 MG TAB (DIOVAN) PO SCH (08:42)
[2018-10-28] MEDS: ENOXAPARIN 40 MG/0.4 ML SYRINGE (J1650) SC SCH (08:43)
[2018-10-28] MEDS: GABAPENTIN 400 MG CAP PO SCH (08:44)
[2018-10-28] MEDS: amLODIPine 5 MG TAB PO SCH (10:00)
--- NOTE | 2018-10-28 10:55 | IPNPDOC ---
Text Note Date of Service The patient was seen on 10/28/18. NOTE Subjective: Patient is an 88-year-old female with a PMHx of HTN, DLP and chronic back pain/sciatica who presented to the ER on 10/17/2018 after she had experienced a mechanical fall. In the emergency room, patient was noted to have a sacral fracture. Orthopedic surgery was consulted, no surgical interventions were recommended. Patient was also found to have urinary tract infection with Escherichia coli and was treated with IV Rocephin and transitioned to Cefdinir. Patient was eventually transferred to acute rehabilitation unit on 10/19 for further rehabilitation. Hospitalist service work consultation for medical comanagement. Patient was seen and examined at the bedside. Denies any complaints overnight. Does not report any chest pain churns of breath, palpitations, nausea, vomiting, abdominal pain, constipation, diarrhea or urinary burning. Patient has noted that she has not required urinary catheterization over the last few times and has been urinating on her own. Objective: Vitals (See below) General: Lying in bed, no acute distress, comfortable, AAOx3 HEENT: NC, AT CVS: RRR, +S1S2 Lungs: Air entry is fair bilaterally, without any evidence of wheezing, rhonchi, rales Abdomen: Soft, abdomen is nondistended without tenderness Extremities: No edema is appreciated. Lower extremities, - Calf tenderness Assessment and plan: Sacral S2 fracture - likely 2/2 mechanical fall - Orthopedic surgery has evaluated patient and has recommended no surgical intervention - Physical therapy, pain control, bowel care as per acute rehabilitation unit - Has continued to progress with physical therapy Sciatica / Chronic back pain - Has received corticosteroids as an outpatient which was initiated on 10/13/18 - c/w Gabapentin - c/w Prednisone taper; dose was reduced to 10 mg daily on 10/27/2018 Urinary retention - possibly 2/2 above - Patient has noted that she doesn't feel the sensation of bladder fullness - c/w bladder scans; has required less frequent catheterizations - c/w Tamsulosin and straight catheterizations as required Hx of UTI - Urine culture 10/17: E. coli - Urine culture 10/20: Negative - s/p Ceftriaxone; s/p Cefdinir s/p Leukocytosis HTN - BP well controlled - s/p Spironolactone - c/w Amlodipine and Valsartan s/p Elevation of BUN / Cr - possibly 2/2 hypovolemia - s/p spironolactone - s/p IV fluid hydration - Avoid nephrotoxic medications GI prophylaxis - c/w Protonix DVT prophylaxis - c/w Lovenox VS,Fishbone, I+O VS, Fishbone, I+O Vital Signs Date Time Temp Pulse Resp B/P (MAP) Pulse Ox O2 Delivery O2 Flow Rate FiO2 10/28/18 10:00 108/70 10/28/18 05:59 97.7 68 18 95 Room Air I&O- Last 24 Hours up to 6 AM 10/28/18 06:00 Intake Total 1080 ml Output Total 2035 ml Balance -955 ml GOMEZ BAKER MD Oct 28, 2018 10:55
[2018-10-28 13:50] VITALS: BP 136/61
--- NOTE | 2018-10-28 15:44 | REP ---
Clinical: Recent trauma/fall. Technique: Lateral flexion/extension views of the lumbar spine. Findings: 2 mm chronic appearing stable anterolisthesis at the L3-4 and L4-5 levels are suggested. Degenerative changes include endplate sclerosis with marginal osteophytes and disc space narrowing at L5-L1 and L2-3. No acute fracture / compression injury. Impression: Mild chronic-appearing stable anterolisthesis at L3-4 and L4-5. Electronically Signed by Dimitri Rojas MD 10/28/2018 03:36 P
--- NOTE | 2018-10-28 16:25 | IPNPDOC ---
PM&R Progress Note DATE OF SERVICE: Oct 28, 2018 [facility] Progress Note Subjective: Patient reports she is still having retention and would like to get more therapy at [facility] instead of going to the [facility]. REVIEW OF SYSTEMS: The following is a completed review of systems and has been reviewed. Review of systems otherwise unremarkable. PAIN: Patient self reports left buttock pain EYES: Negative for recent vision loss EARS, NOSE, & THROAT: negative for rhinorrhea or dysphagia CARDIOVASCULAR: +HTN, denies chest pain or palpitations PULMONARY: Negative. Denies shortness of breath GASTROINTESTINAL: Negative for diarrhea, GENITOURINARY: negative for dysuria, +retention MUSCULOSKELETAL: right sacral fracture and S2 fracture NEUROLOGICAL: Left lumbar radiculopathy SKIN: intact PSYCHIATRIC: Unremarkable All other review of systems found to be negative. PHYSICAL EXAMINATION: VITAL SIGNS: Please see below. GENERAL: Pleasant and cooperative. No acute distress. Alert and oriented times three. HEENT: PERRL. Extraocular movements intact. Clear conjunctiva CARDIOVASCULAR: Regular rate and rhythm. No murmurs, rubs, or gallops LUNGS: Clear to auscultation bilaterally. No wheezes. No rhonchi ABDOMEN: Soft, nontender, nondistended. Positive bowel sounds. Normal active bowel sounds NEUROLOGICAL: Alert and oriented times three. Cranial nerves II through XII grossly intact. Sensation intact throughout all 4 extremities except diminished left L5 distribution EXTREMITIES:5\5 strength bilateral upper extremities. 5\5 strength right lower extremity. 5/5 strength in left lower extremity, except 4+/5 strength left ankle DF and EHL (-) Jere's bilat ASSESSMENT:87-year-old F with past medical history of HTN and HLD who presents status post fall with right sacral fracture. PLAN: 1. Rehab: PT/OT, assess for DME needs, able to ambulate further with RW, having some balance difficulties in OT and not safe at this point in shower 2. Ortho: right sacral fracture and S2 stable fracture, WBAT 3. Neuro: left sided leg pain, clinical picture consistent with an active L5 radiculopathy, will taper steroids from 20mg BID to 10mg BID for now -responding well to gabapentin, will decrease dose for possible side effect of urinary retention -continue pillow under left knee 4. Cardio: pmh HTN and HLD: continue home meds, medicine consulted recs appreciated 5. : +E. Coli UTI s/p Ceftriaxone, c/p oral Cefdinir, repeat Ucx negative, Patient having urinary retention, reports she usually has difficulty urinating at home, currently off of opioids which may have exacerbated what sounds like some retention prior to admission- continue tamsulosin and IC, will wean off gabapentin to see if this helps with retention-will discuss case with urology -flexion/extension lumbar x-ray ordered today for possible instability 6. DVT ppx: on lovenox and teds 7. Pain:s/p percocet, unable to tolerate tramadol, will continue tylenol and will taper gabapentin to see if this helps alleviate urinary retention 7. Dispo:Patient and family requesting [facility] for more therapy and monitoring of urinary retention progressing towards goals Allergies Coded Allergies: No Known Allergies (Unverified , 01/28/13) Vital Signs Vital Signs Date Time Temp Pulse Resp B/P (MAP) Pulse Ox O2 Delivery O2 Flow Rate FiO2 10/28/18 13:50 97.8 88 18 136/61 (86) 92 Room Air Microbiology Microbiology 10/20/18 Urine Culture - Final, Complete Current Medications Current Medications Current Medications Acetaminophen (Tylenol Tab) 650 mg Q4HP PRN PO fever/MILD PAIN (PS 1-4) Last administered on 10/28/18at 10:12; Start 10/19/18 at 16:30 Amlodipine Besylate (Norvasc) 5 mg DAILY@1000 PO Last administered on 10/25/18at 11:13; Start 10/20/18 at 10:00 Bisacodyl (Dulcolax Suppository) 10 mg DAILYPRN PRN DC CONSTIPATION Last administered on 10/21/18at 15:58; Start 10/19/18 at 16:30 Bisacodyl (Dulcolax Tab) 5 mg DAILYPRN PRN PO CONSTIPATION; Start 10/19/18 at 16:30 Cefdinir (Omnicef) 300 mg BID PO Last administered on 10/24/18at 08:42; Start 10/19/18 at 21:00; Stop 10/24/18 at 09:01; Status DC Cyclobenzaprine HCl (Flexeril) 5 mg Q6HP PRN PO SPASMS; Start 10/19/18 at 16:30; Stop 10/20/18 at 15:38; Status DC Enoxaparin Sodium (Lovenox) 40 mg DAILY SC Last administered on 10/28/18at 08:43; Start 10/20/18 at 09:00 Gabapentin (Neurontin) 300 mg QHS PO Last administered on 10/20/18at 20:28; Start 10/20/18 at 21:00; Stop 10/21/18 at 14:08; Status DC Gabapentin (Neurontin) 300 mg TID PO Last administered on 10/23/18at 16:28; Start 10/21/18 at 16:00; Stop 10/23/18 at 17:10; Status DC Gabapentin (Neurontin) 400 mg TID PO Last administered on 10/28/18at 08:44; Start 10/23/18 at 21:00 Home Med (Med Rec Complete!) ASDIRECTED XX ; Start 10/20/18 at 11:15; Stop 10/20/18 at 11:15; Status DC Indapamide (Lozol) 1.25 mg DAILY PO Last administered on 10/28/18at 08:42; Start 10/20/18 at 09:00 Magnesium Hydroxide (Milk Of Magnesia) 30 ml DAILYPRN PRN PO CONSTIPATION; Start 10/19/18 at 16:30 Miscellaneous (Unresolved Clarification Entry) SEE LABEL COMMENTS DAILY XX ; Start 10/26/18 at 09:00; Stop 10/26/18 at 12:07; Status DC Ondansetron HCl (Zofran) 4 mg Q6HP PRN PO NAUSEA; Start 10/19/18 at 16:30; Stop 10/23/18 at 17:07; Status DC Oxycodone/ Acetaminophen (Percocet 5mg/ 325mg Tablet) 1 tab Q4HP PRN PO MILD/MODERATE PAIN (PS 8-10) Last administered on 10/21/18at 12:25; Start 10/19/18 at 16:30; Stop 10/21/18 at 14:08; Status DC Pantoprazole Sodium (Protonix) 40 mg DAILY PO Last administered on 10/28/18at 08:41; Start 10/20/18 at 09:00 Prednisone (Deltasone) 10 mg BID PO Last administered on 10/27/18at 08:33; Start 10/22/18 at 21:00; Stop 12/25/18 at 10:47; Status DC Prednisone (Deltasone) 10 mg DAILY PO Last administered on 10/28/18 08:42; Start 10/28/18 at 09:00 Prednisone (Deltasone) 20 mg BID PO Last administered on 10/21/18at 21:32; Start 10/19/18 at 21:00; Stop 10/21/18 at 22:00; Status DC Senna/Docusate Sodium (Senokot S) 1 tab BID PO Last administered on 10/28/18 08:41; Start 10/19/18 at 21:00; Stop 10/28/18 at 14:31; Status DC Spironolactone (Aldactone) 25 mg QAM PO Last administered on 10/24/18at 08:42; Start 10/20/18 at 09:00; Stop 10/24/18 at 11:11; Status DC Tamsulosin HCl (Flomax) 0.4 mg QHS PO Last administered on 10/27/18at 20:41; Start 10/23/18 at 21:00 Tramadol HCl (Ultram) 50 mg Q6HP PRN PO MODERATE PAIN (PS 5-7) Last adm inistered on 10/20/18at 11:16; Start 10/19/18 at 16:30; Stop 10/21/18 at 14:08; Status DC Tramadol/ Acetaminophen (Ultracet 37.5/ 325 Mg) 1 tab Q4HP PRN PO MILD PAIN (PS 6-10) Last administered on 10/21/18at 16:46; Start 10/21/18 at 14:15; Stop 10/23/18 at 09:59; Status DC Valsartan (Diovan) 160 mg DAILY PO Last administered on 10/28/18at 08:42; Start 10/25/18 at 09:00 Valsartan (Diovan) 320 mg DAILY PO Last administered on 10/24/18at 08:41; Start 10/20/18 at 09:00; Stop 10/24/18 at 11:11; Status DC TYRELL REEVES MD Oct 28, 2018 16:25
[2018-10-28] MEDS: GABAPENTIN 100 MG CAP PO SCH ×2 (16:35→20:23)
[2018-10-28 20:00] VITALS: BP 123/59
[2018-10-28] MEDS: TAMSULOSIN 0.4 MG CAP PO SCH (20:23)
[2018-10-29 05:41] VITALS: BP 129/58
[2018-10-29 07:00] LABS: BASO % 0.2 % (0.0-1.0); EOS # 0.1 10^3/uL (0.0-0.50); EOS % 0.9 % (0.0-3.0); HEMATOCRIT 37.1 % (36.0-47.0); HEMOGLOBIN 12.3 g/dl (12.0-15.5); LYMPH # 2.1 10^3/uL (1.5-4.5); LYMPH % 20.9 % (24.0-44.0); MEAN CORPUSCULAR HEMOGLOBIN 30.8 pg (27.0-33.0); MEAN CORPUSCULAR HGB CONC 33.2 g/dl (32.0-36.5); MONO # 0.8 10^3/uL (0.0-0.8); MONO % 8.2 % (0.0-5.0); NEUTROPHILS # 6.8 10^3/uL (1.8-7.7); NEUTROPHILS % 68.5 % (36.0-66.0); PLATELET COUNT, AUTOMATED 416 10^3/uL (150-450); RED BLOOD COUNT 3.99 10^6/uL (4.00-5.40); WHITE BLOOD COUNT 9.9 10^3/uL (4.0-10.0)
[2018-10-29 07:28] LABS: CALCIUM LEVEL 9.5 MG/DL (8.8-10.2); CREATININE FOR GFR 0.97 MG/DL (0.55-1.30); GLOMERULAR FILTRATION RATE 57.8 (>32); POTASSIUM SERUM 3.7 MEQ/L (3.5-5.1)
[2018-10-29] MEDS: INDAPAMIDE 1.25MG TABLET PO SCH (08:39)
[2018-10-29] MEDS: predniSONE 10 MG TAB PO SCH (08:39)
[2018-10-29] MEDS: PANTOPRAZOLE 40MG TAB (PROTONIX) PO SCH (08:39)
[2018-10-29] MEDS: GABAPENTIN 100 MG CAP PO SCH ×3 (08:39→20:42)
[2018-10-29] MEDS: ENOXAPARIN 40 MG/0.4 ML SYRINGE (J1650) SC SCH (08:40)
[2018-10-29] MEDS: VALSARTAN 80 MG TAB (DIOVAN) PO SCH (08:40)
[2018-10-29] MEDS: ACETAMINOPHEN TAB 650MG DOSE (2X325MG) PO PRN ×3 (08:42→20:43)
[2018-10-29 09:50] VITALS: BP 94/50
[2018-10-29] MEDS: amLODIPine 5 MG TAB PO SCH (10:00)
[2018-10-29 10:05] VITALS: BP 107/50
[2018-10-29 14:00] VITALS: BP 123/67
--- NOTE | 2018-10-29 14:40 | IPNPDOC ---
Date Seen The patient was seen on 10/29/18. Progress Note HPI: This is a 87-year-old female who presented 10/17/18 with back pain and generalized weakness. While getting out of the shower on the day of admission, the patient felt generally ill, with generalized weakness, had a mechanical fall, and fell onto her right side. The pt had been started on PO prednisone and tramadol as per PCP 10/13/18 for sciatica. In the ED, patient was noted to have a sacral fracture, orthopedics were consulted, with no surgical intervention was recommended. The pt was found to have E coli UTI and was treated with IV Rocephin. The pt was transferred to the care of ARU, Dr Hussein, 10/19/18. Pt states pain is controlled. She has been OOB with therapy today. Denies any fevers, chills, weakness, fatigue, Headache, Chest Pain, Shortness of breath, cough, palpitations, abdominal pain, N/V/D or changes in bowel or bladder habits. PMHx: HTN DLP Back pain/Sciatica PSHX: Hysterectomy PE: GEN: 87yoF, appears stated age. Well-nourished, well developed. No acute distress. Alert and oriented x 3. Pleasant, interactive. HEENT: Normocephalic, atraumatic. Pupils are equal, round, and reactive to light. Extraocular movements are intact. No nystagmus appreciated. Sclera are nonicteric. Conjunctiva without injection. Nose midline. Nasal turbinates without bogginess. N Moist mucous membranes. Pharynx pink and moist, no cobblestoning. CHEST: Regular rate and rhythm, +S1, +S2 LUNGS: Clear to auscultation bilaterally. No wheezes, rales, or rhonchi. Breathing appears symmetric and easy. ABD: Round, soft, non-tender, non-distended. +Bowel sounds throughout. No rebound or guarding. No costovertebral angle tenderness. EXT: Pulses 2+ bilaterally dorsalis pedis and radial. No lower extremity edema appreciated. SKIN: [place], dry, warm. Capillary refill <2sec. No rashes. NEURO: Alert and oriented x 3. No focal deficits appreciated. A&P: This is a 87-year-old female who presented 10/17/18 with back pain and generalized weakness. While getting out of the shower on the day of admission, the patient felt generally ill, with generalized weakness, had a mechanical fall, and fell onto her right side. In the ED, patient was noted to have a sacral fracture, orthopedics were consulted, with no surgical intervention was recommended. The pt was transferred to the care of ARU, Dr Hussein, 10/19/18. Sacral fracture, S2 fracture. No intervention recommended as per Orthopedics. PT/OT as per Dr Hussein. Pain control as per Dr Hussein. Bowel care as per Dr Hussein Pt was started on po prednisone as per PCP 10/13/18 for sciatica. Dose is currently being weaned. DVT prophylaxis. SQ Lovenox. Urinary retention. Mgmt as per ARU. Repeat UC 10/20 18 neg. IC as needed. Flomax added. Gabapentin dose decreased. Continue to monitor bladder scans. Plan for outpt f/u with Urology. UTI. E. Coli Blood Culture neg. repeat UC 10/20 neg. Completed antibiotics, po Cefdinir. Hypertension SBP 94 this AM. S/P IVF 10/24 HOLD Lozol. Losartan reduced to 80 mg daily with hold paramter. Monitor I/O, Daily weight. Monitor. Leukocytosis. Resolved. Possibly steroid effect. Pt is afebrile. Monitor. VS, I&O, 24H, Fishbone Vital Signs/I&O Vital Signs Date Time Temp Pulse Resp B/P (MAP) Pulse Ox O2 Delivery O2 Flow Rate FiO2 10/29/18 10:05 107/50 (69) 10/29/18 10:00 75 10/29/18 09:50 97.1 20 96 Room Air I&O- Last 24 Hours up to 6 AM 10/29/18 06:00 Intake Total 960 ml Output Total 1550 ml Balance -590 ml Laboratory Data 24H LABS Laboratory Tests 2 10/29/18 06:28: Immature Granulocyte % (Auto) 1.3, White Blood Count 9.9, Red Blood Count 3.99L, Hemoglobin 12.3, Hematocrit 37.1, Mean Corpuscular Volume 93.0, Mean Corpuscular Hemoglobin 30.8, Mean Corpuscular Hemoglobin Concent 33.2, Red Cell Distribution Width 13.6, Platelet Count 416, Neutrophils (%) (Auto) 68.5H, Lymphocytes (%) (Auto) 20.9L, Monocytes (%) (Auto) 8.2H, Eosinophils (%) (Auto) 0.9, Basophils (%) (Auto) 0.2, Neutrophils # (Auto) 6.8, Lymphocytes # (Auto) 2.1, Monocytes # (Auto) 0.8, Eosinophils # (Auto) 0.1, Basophils # (Auto) 0.0, Nucleated Red Blood Cells % (auto) 0.0, Anion Gap 6L, Glomerular Filtration Rate 57.8, Blood Urea Nitrogen 34H, Creatinine 0.97, Sodium Level 139, Potassium Level 3.7, Chloride Level 105, Carbon Dioxide Level 28, Calcium Level 9.5 CBC/BMP Laboratory Tests 10/29/18 06:28 Red Blood Count 3.99 L, Mean Corpuscular Volume 93.0, Mean Corpuscular Hemoglobin 30.8, Mean Corpuscular Hemoglobin Concent 33.2, Red Cell Distribution Width 13.6, Neutrophils (%) (Auto) 68.5 H, Lymphocytes (%) (Auto) 20.9 L, Monocytes (%) (Auto) 8.2 H, Eosinophils (%) (Auto) 0.9, Basophils (%) (Auto) 0.2, Neutrophils # (Auto) 6.8, Lymphocytes # (Auto) 2.1, Monocytes # (Auto) 0.8, Eosinophils # (Auto) 0.1, Basophils # (Auto) 0.0, Calcium Level 9.5 Microbiology Microbiology 10/20/18 Urine Culture - Final, Complete Nohemy Castillo Oct 29, 2018 14:40
--- NOTE | 2018-10-29 15:54 | IPNPDOC ---
PM&R Progress Note DATE OF SERVICE: Oct 29, 2018 [facility] Progress Note Subjective: Patient reports she felt dizzy today in therapy with a drop in sBP to the 90s and would like her schedule adjusted for fatigue. She is still having urinary retention. REVIEW OF SYSTEMS: The following is a completed review of systems and has been reviewed. Review of systems otherwise unremarkable. PAIN: Patient self reports left buttock pain EYES: Negative for recent vision loss EARS, NOSE, & THROAT: negative for rhinorrhea or dysphagia CARDIOVASCULAR: +HTN, denies chest pain or palpitations PULMONARY: Negative. Denies shortness of breath GASTROINTESTINAL: Negative for diarrhea, GENITOURINARY: negative for dysuria, +retention MUSCULOSKELETAL: right sacral fracture and S2 fracture NEUROLOGICAL: Left lumbar radiculopathy SKIN: intact PSYCHIATRIC: Unremarkable All other review of systems found to be negative. PHYSICAL EXAMINATION: VITAL SIGNS: Please see below. GENERAL: Pleasant and cooperative. No acute distress. Alert and oriented times three. HEENT: PERRL. Extraocular movements intact. Clear conjunctiva CARDIOVASCULAR: Regular rate and rhythm. No murmurs, rubs, or gallops LUNGS: Clear to auscultation bilaterally. No wheezes. No rhonchi ABDOMEN: Soft, nontender, nondistended. Positive bowel sounds. Normal active bowel sounds NEUROLOGICAL: Alert and oriented times three. Cranial nerves II through XII grossly intact. Sensation intact throughout all 4 extremities except diminished left L5 distribution EXTREMITIES:5\5 strength bilateral upper extremities. 5\5 strength right lower extremity. 5/5 strength in left lower extremity, except 4+/5 strength left ankle DF and EHL (-) Jere's bilat ASSESSMENT:87-year-old F with past medical history of HTN and HLD who presents status post fall with right sacral fracture. PLAN: 1. Rehab: PT/OT, assess for DME needs, able to ambulate further with RW, having some balance difficulties in OT and not safe at this point in shower- peisode of hypotension today 2. Ortho: right sacral fracture and S2 stable fracture, WBAT 3. Neuro: left sided leg pain, clinical picture consistent with an active L5 radiculopathy, will taper steroids from 20mg BID to 10mg BID for now -responding well to gabapentin, will decrease dose for possible side effect of urinary retention -continue pillow under left knee 4. Cardio: pmh HTN and HLD: continue home meds, medicine consulted recs appreciated, d/c amlodipine and decreased ARB for low am BPs 5. : +E. Coli UTI s/p Ceftriaxone, c/p oral Cefdinir, repeat Ucx negative, Patient having urinary retention, reports she usually has difficulty urinating at home, currently off of opioids which may have exacerbated what sounds like some retention prior to admission- continue tamsulosin and IC, will wean off gabapentin to see if this helps with retention-discussed with urology to f/u outpatient and insert cooper if does not resolve by discharge -flexion/extension lumbar x-ray 10-28-18 positive for mild lumbar anterolisthesis, but stable 6. DVT ppx: on lovenox and teds 7. Pain:s/p percocet, unable to tolerate tramadol, will continue tylenol and continue to taper gabapentin to see if this helps alleviate urinary retention 7. Dispo:Patient and family requesting [facility] for more therapy and monitoring of urinary retention progressing towards goals Allergies Coded Allergies: No Known Allergies (Unverified , 01/28/13) Vital Signs Vital Signs Date Time Temp Pulse Resp B/P (MAP) Pulse Ox O2 Delivery O2 Flow Rate FiO2 10/29/18 14:00 98.4 80 18 123/67 (85) 97 Room Air Laboratory Data CBC/BMP Laboratory Tests 10/29/18 06:28 Red Blood Count 3.99 L, Mean Corpuscular Volume 93.0, Mean Corpuscular Hemoglobin 30.8, Mean Corpuscular Hemoglobin Concent 33.2, Red Cell Distribution Width 13.6, Neutrophils (%) (Auto) 68.5 H, Lymphocytes (%) (Auto) 20.9 L, Monocytes (%) (Auto) 8.2 H, Eosinophils (%) (Auto) 0.9, Basophils (%) (Auto) 0.2, Neutrophils # (Auto) 6.8, Lymphocytes # (Auto) 2.1, Monocytes # (Auto) 0.8, Eosinophils # (Auto) 0.1, Basophils # (Auto) 0.0, Calcium Level 9.5 Labs 24H Laboratory Tests 2 10/29/18 06:28: Immature Granulocyte % (Auto) 1.3, White Blood Count 9.9, Red Blood Count 3.99L, Hemoglobin 12.3, Hematocrit 37.1, Mean Corpuscular Volume 93.0, Mean Corpuscular Hemoglobin 30.8, Mean Corpuscular Hemoglobin Concent 33.2, Red Cell Distribution Width 13.6, Platelet Count 416, Neutrophils (%) (Auto) 68.5H, Lymphocytes (%) (Auto) 20.9L, Monocytes (%) (Auto) 8.2H, Eosinophils (%) (Auto) 0.9, Basophils (%) (Auto) 0.2, Neutrophils # (Auto) 6.8, Lymphocytes # (Auto) 2.1, Monocytes # (Auto) 0.8, Eosinophils # (Auto) 0.1, Basophils # (Auto) 0.0, Nucleated Red Bloo d Cells % (auto) 0.0, Anion Gap 6L, Glomerular Filtration Rate 57.8, Blood Urea Nitrogen 34H, Creatinine 0.97, Sodium Level 139, Potassium Level 3.7, Chloride Level 105, Carbon Dioxide Level 28, Calcium Level 9.5 Microbiology Microbiology 10/20/18 Urine Culture - Final, Complete Current Medications Current Medications Current Medications Acetaminophen (Tylenol Tab) 650 mg Q4HP PRN PO fever/MILD PAIN (PS 1-4) Last administered on 10/29/18at 08:42; Start 10/19/18 at 16:30 Amlodipine Besylate (Norvasc) 5 mg DAILY@1000 PO Last administered on 10/25/18at 11:13; Start 10/20/18 at 10:00; Stop 10/29/18 at 11:22; Status DC Bisacodyl (Dulcolax Suppository) 10 mg DAILYPRN PRN [place] CONSTIPATION Last administered on 10/21/18at 15:58; Start 10/19/18 at 16:30 Bisacodyl (Dulcolax Tab) 5 mg DAILYPRN PRN PO CONSTIPATION; Start 10/19/18 at 16:30 Cefdinir (Omnicef) 300 mg BID PO Last administered on 10/24/18at 08:42; Start 10/19/18 at 21:00; Stop 10/24/18 at 09:01; Status DC Cyclobenzaprine HCl (Flexeril) 5 mg Q6HP PRN PO SPASMS; Start 10/19/18 at 16:30; Stop 10/20/18 at 15:38; Status DC Enoxaparin Sodium (Lovenox) 40 mg DAILY SC Last administered on 10/29/18at 08:40; Start 10/20/18 at 09:00 Gabapentin (Neurontin) 200 mg TID PO Last administered on 10/29/18at 08:39; Start 10/28/18 at 16:00 Gabapentin (Neurontin) 300 mg QHS PO Last administered on 10/20/18at 20:28; Start 10/20/18 at 21:00; Stop 10/21/18 at 14:08; Status DC Gabapentin (Neurontin) 300 mg TID PO Last administered on 10/23/18at 16:28; Start 10/21/18 at 16:00; Stop 10/23/18 at 17:10; Status DC Gabapentin (Neurontin) 400 mg TID PO Last administered on 10/28/18at 08:44; Start 10/23/18 at 21:00; Stop 10/28/18 at 16:26; Status DC Home Med (Med Rec Complete!) ASDIRECTED XX ; Start 10/20/18 at 11:15; Stop 10/20/18 at 11:15; Status DC Indapamide (Lozol) 1.25 mg DAILY PO Last administered on 10/29/18at 08:39; Start 10/20/18 at 09:00; Stop 10/29/18 at 14:42; Status DC Magnesium Hydroxide (Milk Of Magnesia) 30 ml DAILYPRN PRN PO CONSTIPATION; Start 10/19/18 at 16:30 Miscellaneous (Unresolved Clarification Entry) SEE LABEL COMMENTS DAILY XX ; Start 10/26/18 at 09:00; Stop 10/26/18 at 12:07; Status DC Ondansetron HCl (Zofran) 4 mg Q6HP PRN PO NAUSEA; Start 10/19/18 at 16:30; Stop 10/23/18 at 17:07; Status DC Oxycodone/ Acetaminophen (Percocet 5mg/ 325mg Tablet) 1 tab Q4HP PRN PO M ILD/MODERATE PAIN (PS 8-10) Last administered on 10/21/18at 12:25; Start 10/19/18 at 16:30; Stop 10/21/18 at 14:08; Status DC Pantoprazole Sodium (Protonix) 40 mg DAILY PO Last administered on 10/29/18at 08:39; Start 10/20/18 at 09:00 Prednisone (Deltasone) 5 mg DAILY PO ; Start 11/03/18 at 09:00; Stop 11/10/18 at 08:59 Prednisone (Deltasone) 10 mg BID PO Last administered on 10/27/18at 08:33; Start 10/22/18 at 21:00; Stop 10/27/18 at 10:47; Status DC Prednisone (Deltasone) 10 mg DAILY PO Last administered on 10/29/18at 08:39; Start 10/28/18 at 09:00; Stop 11/02/18 at 17:00 Prednisone (Deltasone) 20 mg BID PO Last administered on 10/21/18 21:32; Start 10/19/18 at 21:00; Stop 10/21/18 at 22:00; Status DC Senna/Docusate Sodium (Senokot S) 1 tab BID PO Last administered on 10/28/18 08:41; Start 10/19/18 at 21:00; Stop 10/28/18 at 14:31; Status DC Spironolactone (Aldactone) 25 mg QAM PO Last administered on 10/24/18at 08:42; Start 10/20/18 at 09:00; Stop 10/24/18 at 11:11; Status DC Tamsulosin HCl (Flomax) 0.4 mg QHS PO Last administered on 10/28/18at 20:23; S tart 10/23/18 at 21:00 Tramadol HCl (Ultram) 50 mg Q6HP PRN PO MODERATE PAIN (PS 5-7) Last administ ered on 10/20/18at 11:16; Start 10/19/18 at 16:30; Stop 10/21/18 at 14:08; Status DC Tramadol/ Acetaminophen (Ultracet 37.5/ 325 Mg) 1 tab Q4HP PRN PO MILD PAIN (PS 6-10) Last administered on 10/21/18 16:46; Start 10/21/18 at 14:15; Stop 10/23/18 at 09:59; Status DC Valsartan (Diovan) 80 mg DAILY PO ; Start 10/30/18 at 09:00 Valsartan (Diovan) 160 mg DAILY PO Last administered on 10/29/18at 08:40; Start 10/25/18 at 09:00; Stop 10/29/18 at 11:22; Status DC Valsartan (Diovan) 320 mg DAILY PO Last administered on 10/24/18at 08:41; Start 10/20/18 at 09:00; Stop 10/24/18 at 11:11; Status DC TYRELL REEVES MD Oct 29, 2018 15:54
[2018-10-29 20:05] VITALS: BP 112/56
[2018-10-29] MEDS: TAMSULOSIN 0.4 MG CAP PO SCH (20:42)
[2018-10-30] MEDS: ACETAMINOPHEN TAB 650MG DOSE (2X325MG) PO PRN ×3 (04:15→20:39)
[2018-10-30 06:05] VITALS: BP 128/58
[2018-10-30] MEDS: PANTOPRAZOLE 40MG TAB (PROTONIX) PO SCH (09:08)
[2018-10-30] MEDS: VALSARTAN 80 MG TAB (DIOVAN) PO SCH (09:08)
[2018-10-30] MEDS: GABAPENTIN 100 MG CAP PO SCH ×3 (09:08→20:38)
[2018-10-30] MEDS: ENOXAPARIN 40 MG/0.4 ML SYRINGE (J1650) SC SCH (09:09)
[2018-10-30] MEDS: predniSONE 10 MG TAB PO SCH (09:09)
--- NOTE | 2018-10-30 13:08 | IPNPDOC ---
Date Seen The patient was seen on 10/30/18. Progress Note HPI: This is a 87-year-old female who presented 10/17/18 with back pain and generalized weakness. While getting out of the shower on the day of admission, the patient felt generally ill, with generalized weakness, had a mechanical fall, and fell onto her right side. The pt had been started on PO prednisone and tramadol as per PCP 10/13/18 for sciatica. In the ED, patient was noted to have a sacral fracture, orthopedics were consulted, with no surgical intervention was recommended. The pt was found to have E coli UTI and was treated with IV Rocephin. The pt was transferred to the care of ARU, Dr Hussein, 10/19/18. Pt states pain is controlled. She has been OOB with therapy today. Denies any fevers, chills, weakness, fatigue, Headache, Chest Pain, Shortness of breath, cough, palpitations, abdominal pain, N/V/D or changes in bowel or bladder habits. PMHx: HTN DLP Back pain/Sciatica PSHX: Hysterectomy PE: GEN: 87yoF, appears stated age. Well-nourished, well developed. No acute distress. Alert and oriented x 3. Pleasant, interactive. HEENT: Normocephalic, atraumatic. Pupils are equal, round, and reactive to light. Extraocular movements are intact. No nystagmus appreciated. Sclera are nonicteric. Conjunctiva without injection. Nose midline. Nasal turbinates without bogginess. N Moist mucous membranes. Pharynx pink and moist, no cobblestoning. CHEST: Regular rate and rhythm, +S1, +S2 LUNGS: Clear to auscultation bilaterally. No wheezes, rales, or rhonchi. Breathing appears symmetric and easy. ABD: Round, soft, non-tender, non-distended. +Bowel sounds throughout. No rebound or guarding. No costovertebral angle tenderness. EXT: Pulses 2+ bilaterally dorsalis pedis and radial. No lower extremity edema appreciated. SKIN: Keller, dry, warm. Capillary refill <2sec. No rashes. NEURO: Alert and oriented x 3. No focal deficits appreciated. A&P: This is a 87-year-old female who presented 10/17/18 with back pain and generalized weakness. While getting out of the shower on the day of admission, the patient felt generally ill, with generalized weakness, had a mechanical fall, and fell onto her right side. In the ED, patient was noted to have a sacral fracture, orthopedics were consulted, with no surgical intervention was recommended. The pt was transferred to the care of ARU, Dr Hussein, 10/19/18. Sacral fracture, S2 fracture. No intervention recommended as per Orthopedics. PT/OT as per Dr Hussein. Pain control as per Dr Hussein. Bowel care as per Dr Hussein Pt was started on po prednisone as per PCP 10/13/18 for sciatica. Dose is currently being weaned. DVT prophylaxis. SQ Lovenox. Urinary retention. Mgmt as per ARU. Repeat UC 10/20 18 neg. IC as needed. Flomax added. Gabapentin dose decreased. Continue to monitor bladder scans. Plan for outpt f/u with Urology. UTI. E. Coli Blood Culture neg. repeat UC 10/20 neg. Completed antibiotics, po Cefdinir. Hypertension SBP 112-142 past 24 hrs. S/P IVF 10/24 Continue to hold Lozol. Losartan reduced to 80 mg daily with hold paramter. Monitor I/O, Daily weight. Monitor need to restart Lozol. Leukocytosis. Resolved. Possibly steroid effect. Pt is afebrile. Monitor. VS, I&O, 24H, Fishbone Vital Signs/I&O Vital Signs Date Time Temp Pulse Resp B/P (MAP) Pulse Ox O2 Delivery O2 Flow Rate FiO2 10/30/18 09:08 142/65 10/30/18 07:50 20 Room Air 10/30/18 06:05 97.1 68 96 I&O- Last 24 Hours up to 6 AM 10/30/18 05:59 Intake Total 360 ml Output Total 500 ml Balance -140 ml Laboratory Data Microbiology Microbiology 10/20/18 Urine Culture - Final, Complete Nohemy Castillo Oct 30, 2018 13:08
[2018-10-30 14:00] VITALS: BP 124/58
--- NOTE | 2018-10-30 17:40 | IPNPDOC ---
PM&R Progress Note DATE OF SERVICE: Oct 30, 2018 [facility] Progress Note Subjective: Patient reports she feels much better today and was encouraged to sit in her chair rather than lie in bed. REVIEW OF SYSTEMS: The following is a completed review of systems and has been reviewed. Review of systems otherwise unremarkable. PAIN: Patient self reports left buttock pain EYES: Negative for recent vision loss EARS, NOSE, & THROAT: negative for rhinorrhea or dysphagia CARDIOVASCULAR: +HTN, denies chest pain or palpitations PULMONARY: Negative. Denies shortness of breath GASTROINTESTINAL: Negative for diarrhea, GENITOURINARY: negative for dysuria, +retention MUSCULOSKELETAL: right sacral fracture and S2 fracture NEUROLOGICAL: Left lumbar radiculopathy SKIN: intact PSYCHIATRIC: Unremarkable All other review of systems found to be negative. PHYSICAL EXAMINATION: VITAL SIGNS: Please see below. GENERAL: Pleasant and cooperative. No acute distress. Alert and oriented times three. HEENT: PERRL. Extraocular movements intact. Clear conjunctiva CARDIOVASCULAR: Regular rate and rhythm. No murmurs, rubs, or gallops LUNGS: Clear to auscultation bilaterally. No wheezes. No rhonchi ABDOMEN: Soft, nontender, nondistended. Positive bowel sounds. Normal active bowel sounds NEUROLOGICAL: Alert and oriented times three. Cranial nerves II through XII grossly intact. Sensation intact throughout all 4 extremities except diminished left L5 distribution EXTREMITIES:5\5 strength bilateral upper extremities. 5\5 strength right lower extremity. 5/5 strength in left lower extremity, except 4+/5 strength left ankle DF and EHL (-) Jere's bilat ASSESSMENT:87-year-old F with past medical history of HTN and HLD who presents status post fall with right sacral fracture. PLAN: 1. Rehab: PT/OT, assess for DME needs, able to ambulate further with RW, having some balance difficulties in OT and not safe at this point in shower- 2. Ortho: right sacral fracture and S2 stable fracture, WBAT 3. Neuro: left sided leg pain, clinical picture consistent with an active L5 radiculopathy, will taper steroids from 20mg BID to 10mg BID for now -responding well to gabapentin, will decrease dose for possible side effect of urinary retention -continue pillow under left knee 4. Cardio: pmh HTN and HLD: continue home meds, medicine consulted recs appreciated, d/c amlodipine and decreased ARB for low am BPs 5. : +E. Coli UTI s/p Ceftriaxone, c/p oral Cefdinir, repeat Ucx negative, Patient having urinary retention, reports she usually has difficulty urinating at home, currently off of opioids which may have exacerbated what sounds like some retention prior to admission- continue tamsulosin and IC, will wean off gabapentin to see if this helps with retention-discussed with urology to f/u outpatient and insert cooper if does not resolve by discharge -flexion/extension lumbar x-ray 10-28-18 positive for mild lumbar anterolisthesis, but stable 6. DVT ppx: on lovenox and teds 7. Pain:s/p percocet, unable to tolerate tramadol, will continue tylenol and continue to taper gabapentin to see if this helps alleviate urinary retention 7. Dispo:Patient and family requesting [facility] for more therapy and monitoring of urinary retention progressing towards goals Allergies Coded Allergies: No Known Allergies (Unverified , 01/28/13) Vital Signs Vital Signs Date Time Temp Pulse Resp B/P (MAP) Pulse Ox O2 Delivery O2 Flow Rate FiO2 10/30/18 14:00 98.1 73 16 124/58 (80) 96 Room Air Microbiology Microbiology 10/20/18 Urine Culture - Final, Complete Current Medications Current Medications Current Medications Acetaminophen (Tylenol Tab) 650 mg Q4HP PRN PO fever/MILD PAIN (PS 1-4) Last administered on 10/30/18at 11:59; Start 10/19/18 at 16:30 Amlodipine Besylate (Norvasc) 5 mg DAILY@1000 PO Last administered on 10/25/18at 11:13; Start 10/20/18 at 10:00; Stop 10/29/18 at 11:22; Status DC Bisacodyl (Dulcolax Suppository) 10 mg DAILYPRN PRN [place] CONSTIPATION Last administered on 10/21/18at 15:58; Start 10/19/18 at 16:30 Bisacodyl (Dulcolax Tab) 5 mg DAILYPRN PRN PO CONSTIPATION; Start 10/19/18 at 16:30 Cefdinir (Omnicef) 300 mg BID PO Last administered on 10/24/18at 08:42; Start 10/19/18 at 21:00; Stop 10/24/18 at 09:01; Status DC Cyclobenzaprine HCl (Flexeril) 5 mg Q6HP PRN PO SPASMS; Start 10/19/18 at 16:30; Stop 10/20/18 at 15:38; Status DC Enoxaparin Sodium (Lovenox) 40 mg DAILY SC Last administered on 10/30/18at 09:09; Start 10/20/18 at 09:00 Gabapentin (Neurontin) 100 mg TID PO Last administered on 10/30/18at 17:29; Start 10/29/18 at 21:00 Gabapentin (Neurontin) 200 mg TID PO Last administered on 10/29/18at 15:50; Start 10/28/18 at 16:00; Stop 10/29/18 at 15:54; Status DC Gabapentin (Neurontin) 300 mg QHS PO Last administered on 10/20/18at 20:28; Start 10/20/18 at 21:00; Stop 10/21/18 at 14:08; Status DC Gabapentin (Neurontin) 300 mg TID PO Last administered on 10/23/18at 16:28; Start 10/21/18 at 16:00; Stop 10/23/18 at 17:10; Status DC Gabapentin (Neurontin) 400 mg TID PO Last administered on 10/28/18at 08:44; Start 10/23/18 at 21:00; Stop 10/28/18 at 16:26; Status DC Home Med (Med Rec Complete!) ASDIRECTED XX ; Start 10/20/18 at 11:15; Stop 10/20/18 at 11:15; Status DC Indapamide (Lozol) 1.25 mg DAILY PO Last administered on 10/29/18at 08:39; Start 10/20/18 at 09:00; Stop 10/29/18 at 14:42; Status DC Magnesium Hydroxide (Milk Of Magnesia) 30 ml DAILYPRN PRN PO CONSTIPATION; Start 10/19/18 at 16:30 Miscellaneous (Unresolved Clarification Entry) SEE LABEL COMMENTS DAILY XX ; Start 10/26/18 at 09:00; Stop 10/26/18 at 12:07; Status DC Ondansetron HCl (Zofran) 4 mg Q6HP PRN PO NAUSEA; Start 10/19/18 at 16:30; Stop 10/23/18 at 17:07; Status DC Oxycodone/ Acetaminophen (Percocet 5mg/ 325mg Tablet) 1 tab Q4HP PRN PO MILD/MODERATE PAIN (PS 8-10) Last administered on 10/21/18at 12:25; Start 10/19/18 at 16:30; Stop 10/21/18 at 14:08; Status DC Pantoprazole Sodium (Protonix) 40 mg DAILY PO Last administered on 10/30/18at 09:08; Start 10/20/18 at 09:00 Prednisone (Deltasone) 5 mg DAILY PO ; Start 11/03/18 at 09:00; Stop 11/10/18 at 08:59 Prednisone (Deltasone) 10 mg BID PO Last administered on 10/27/18at 08:33; Start 10/22/18 at 21:00; Stop 10/27/18 at 10:47; Status DC Prednisone (Deltasone) 10 mg DAILY PO Last administered on 10/30/18at 09:09; Start 10/28/18 at 09:00; Stop 11/02/18 at 17:00 Prednisone (Deltasone) 20 mg BID PO Last administered on 10/21/18at 21:32; Start 10/19/18 at 21:00; Stop 10/21/18 at 22:00; Status DC Senna/Docusate Sodium (Senokot S) 1 tab BID PO Last administered on 10/28/18at 08:41; Start 10/19/18 at 21:00; Stop 10/28/18 at 14:31; Status DC Spironolactone (Aldactone) 25 mg QAM PO Last administered on 10/24/18at 08:42; Start 10/20/18 at 09:00; Stop 10/24/18 at 11:11; Status DC Tamsulosin HCl (Flomax) 0.4 mg QHS PO Last administered on 10/29/18at 20:42; Start 10/23/18 at 21:00 Tramadol HCl (Ultram) 50 mg Q6HP PRN PO MODERATE PAIN (PS 5-7) Last administered on 10/20/18at 11:16; Start 10/19/18 at 16:30; Stop 10/21/18 at 14:08; Status DC Tramadol/ Acetaminophen (Ultracet 37.5/ 325 Mg) 1 tab Q4HP PRN PO MILD PAIN (PS 6-10) Last administered on 10/21/18at 16:46; Start 10/21/18 at 14:15; Stop 10/23/18 at 09:59; Status DC Valsartan (Diovan) 80 mg DAILY PO Last administered on 10/30/18at 09:08; Start 10/30/18 at 09:00 Valsartan (Diovan) 160 mg DAILY PO Last administered on 10/29/18at 08:40; Start 10/25/18 at 09:00; Stop 10/29/18 at 11:22; Status DC Valsartan (Diovan) 320 mg DAILY PO Last administered on 10/24/18at 08:41; Start 10/20/18 at 09:00; Stop 10/24/18 at 11:11; Status DC TYRELL REEVES MD Oct 30, 2018 17:40
[2018-10-30 20:30] VITALS: BP 129/60
[2018-10-30] MEDS: TAMSULOSIN 0.4 MG CAP PO SCH (20:38)
[2018-10-31] MEDS: ACETAMINOPHEN TAB 650MG DOSE (2X325MG) PO PRN ×4 (03:14→20:08)
[2018-10-31 05:29] VITALS: BP 118/56
[2018-10-31] MEDS: ENOXAPARIN 40 MG/0.4 ML SYRINGE (J1650) SC SCH (08:56)
[2018-10-31] MEDS: PANTOPRAZOLE 40MG TAB (PROTONIX) PO SCH (08:56)
[2018-10-31] MEDS: VALSARTAN 80 MG TAB (DIOVAN) PO SCH (08:57)
[2018-10-31] MEDS: GABAPENTIN 100 MG CAP PO SCH (08:57)
[2018-10-31] MEDS: predniSONE 10 MG TAB PO SCH (08:57)
[2018-10-31 14:00] VITALS: BP 114/73
[2018-10-31 20:00] VITALS: BP 110/55
[2018-10-31] MEDS: TAMSULOSIN 0.4 MG CAP PO SCH (20:08)
[2018-11-01] MEDS: ACETAMINOPHEN TAB 650MG DOSE (2X325MG) PO PRN ×4 (03:18→17:23)
[2018-11-01 05:56] VITALS: BP 136/63
[2018-11-01] MEDS: PANTOPRAZOLE 40MG TAB (PROTONIX) PO SCH (09:30)
[2018-11-01] MEDS: predniSONE 10 MG TAB PO SCH (09:30)
[2018-11-01] MEDS: ENOXAPARIN 40 MG/0.4 ML SYRINGE (J1650) SC SCH (09:30)
[2018-11-01] MEDS: VALSARTAN 80 MG TAB (DIOVAN) PO SCH (09:33)
[2018-11-01 14:00] VITALS: BP 119/56
[2018-11-01 20:00] VITALS: BP 133/60
[2018-11-01] MEDS: TAMSULOSIN 0.4 MG CAP PO SCH (20:04)
[2018-11-02] MEDS: ACETAMINOPHEN TAB 650MG DOSE (2X325MG) PO PRN ×4 (03:15→18:49)
[2018-11-02 06:00] VITALS: BP 174/73
[2018-11-02 08:00] VITALS: BP 144/64
[2018-11-02] MEDS: PANTOPRAZOLE 40MG TAB (PROTONIX) PO SCH (08:22)
[2018-11-02] MEDS: ENOXAPARIN 40 MG/0.4 ML SYRINGE (J1650) SC SCH (08:23)
[2018-11-02] MEDS: VALSARTAN 80 MG TAB (DIOVAN) PO SCH (08:23)
[2018-11-02] MEDS: predniSONE 10 MG TAB PO SCH (08:23)
[2018-11-02 14:00] VITALS: BP 123/58
[2018-11-02 20:00] VITALS: BP 175/80
[2018-11-02] MEDS: TAMSULOSIN 0.4 MG CAP PO SCH (20:29)
[2018-11-03 06:00] VITALS: BP 157/68
[2018-11-03] MEDS: predniSONE 5 MG TAB PO SCH (08:37)
[2018-11-03] MEDS: ENOXAPARIN 40 MG/0.4 ML SYRINGE (J1650) SC SCH (08:37)
[2018-11-03] MEDS: PANTOPRAZOLE 40MG TAB (PROTONIX) PO SCH (08:37)
[2018-11-03] MEDS: VALSARTAN 80 MG TAB (DIOVAN) PO SCH (08:38)
[2018-11-03 14:33] VITALS: BP 120/60
--- NOTE | 2018-11-03 18:29 | IPNPDOC ---
PM&R Progress Note DATE OF SERVICE: Nov 02, 2018 [employer] Progress Note Subjective: Patient reports she is urinating a little bit more and her pain is well controllefd. REVIEW OF SYSTEMS: The following is a completed review of systems and has been reviewed. Review of systems otherwise unremarkable. PAIN: Patient self reports left buttock pain EYES: Negative for recent vision loss EARS, NOSE, & THROAT: negative for rhinorrhea or dysphagia CARDIOVASCULAR: +HTN, denies chest pain or palpitations PULMONARY: Negative. Denies shortness of breath GASTROINTESTINAL: Negative for diarrhea, GENITOURINARY: negative for dysuria, +retention MUSCULOSKELETAL: right sacral fracture and S2 fracture NEUROLOGICAL: Left lumbar radiculopathy SKIN: intact PSYCHIATRIC: Unremarkable All other review of systems found to be negative. PHYSICAL EXAMINATION: VITAL SIGNS: Please see below. GENERAL: Pleasant and cooperative. No acute distress. Alert and oriented times three. HEENT: PERRL. Extraocular movements intact. Clear conjunctiva CARDIOVASCULAR: Regular rate and rhythm. No murmurs, rubs, or gallops LUNGS: Clear to auscultation bilaterally. No wheezes. No rhonchi ABDOMEN: Soft, nontender, nondistended. Positive bowel sounds. Normal active bowel sounds NEUROLOGICAL: Alert and oriented times three. Cranial nerves II through XII grossly intact. Sensation intact throughout all 4 extremities except diminished left L5 distribution EXTREMITIES:5\5 strength bilateral upper extremities. 5\5 strength right lower extremity. 5/5 strength in left lower extremity, except 4+/5 strength left ankle DF and EHL (-) Jere's bilat ASSESSMENT:87-year-old F with past medical history of HTN and HLD who presents status post fall with right sacral fracture. PLAN: 1. Rehab: PT/OT, assess for DME needs, able to ambulate further with RW, having some balance difficulties in OT and not safe at this point in shower- 2. Ortho: right sacral fracture and S2 stable fracture, WBAT 3. Neuro: left sided leg pain, clinical picture consistent with an active L5 radiculopathy, will taper steroids from 20mg BID to 10mg BID for now -continue pillow under left knee 4. Cardio: pmh HTN and HLD: continue home meds, medicine consulted recs appreciated, d/c amlodipine and decreased ARB for low am BPs-improved 5. : +E. Coli UTI s/p Ceftriaxone, c/p oral Cefdinir, repeat Ucx negative, Patient having urinary retention, reports she usually has difficulty urinating at home, currently off of opioids which may have exacerbated what sounds like some retention prior to admission- continue tamsulosin and IC- discussed with urology to f/u outpatient and insert cooper if does not resolve by discharge- slight improvement in urinary retention -flexion/extension lumbar x-ray 10-28-18 positive for mild lumbar anterolisthesis, but stable 6. DVT ppx: on lovenox and teds 7. Pain:s/p percocet, unable to tolerate tramadol, will continue Tylenol and continue to s/p taper gabapentin 7. Dispo:Patient and family requesting [facility] for more therapy and monitoring of urinary retention progressing towards goals Allergies Coded Allergies: No Known Allergies (Unverified , 01/28/13) Vital Signs Vital Signs Date Time Temp Pulse Resp B/P (MAP) Pulse Ox O2 Delivery O2 Flow Rate FiO2 11/03/18 14:33 97.8 68 18 120/60 (80) 95 Room Air Current Medications Current Medications Current Medications Acetaminophen (Tylenol Tab) 650 mg Q4HP PRN PO fever/MILD PAIN (PS 1-4) Last administered on 11/02/18at 18:49; Start 10/19/18 at 16:30 Amlodipine Besylate (Norvasc) 5 mg DAILY@1000 PO Last administered on 10/25/18at 11:13; Start 10/20/18 at 10:00; Stop 10/29/18 at 11:22; Status DC Bisacodyl (Dulcolax Suppository) 10 mg DAILYPRN PRN [place] CONSTIPATION Last administered on 10/21/18at 15:58; Start 10/19/18 at 16:30 Bisacodyl (Dulcolax Tab) 5 mg DAILYPRN PRN PO CONSTIPATION; Start 10/19/18 at 16:30 Cefdinir (Omnicef) 300 mg BID PO Last administered on 10/24/18at 08:42; Start 10/19/18 at 21:00; Stop 10/24/18 at 09:01; Status DC Cyclobenzaprine HCl (Flexeril) 5 mg Q6HP PRN PO SPASMS; Start 10/19/18 at 16:30; Stop 10/20/18 at 15:38; Status DC Enoxaparin Sodium (Lovenox) 40 mg DAILY SC Last administered on 11/03/18at 08:37; Start 10/20/18 at 09:00 Gabapentin (Neurontin) 100 mg TID PO Last administered on 10/31/18at 08:57; Start 10/29/18 at 21:00; Stop 10/31/18 at 10:05; Status DC Gabapentin (Neurontin) 200 mg TID PO Last administered on 10/29/18at 15:50; Start 10/28/18 at 16:00; Stop 10/29/18 at 15:54; Status DC Gabapentin (Neurontin) 300 mg QHS PO Last administered on 10/20/18at 20:28; Start 10/20/18 at 21:00; Stop 10/21/18 at 14:08; Status DC Gabapentin (Neurontin) 300 mg TID PO Last administered on 10/23/18at 16:28; Start 10/21/18 at 16:00; Stop 10/23/18 at 17:10; Status DC Gabapentin (Neurontin) 400 mg TID PO Last administered on 10/28/18at 08:44; Start 10/23/18 at 21:00; Stop 10/28/18 at 16:26; Status DC Home Med (Med Rec Complete!) ASDIRECTED XX ; Start 10/20/18 at 11:15; Stop 10/20/18 at 11:15; Status DC Indapamide (Lozol) 1.25 mg DAILY PO Last administered on 10/29/18at 08:39; Start 10/20/18 at 09:00; Stop 10/29/18 at 14:42; Status DC Loperamide HCl (Imodium) 2 mg ASDIRECTED PRN PO DIARRHEA; Start 11/03/18 at 18:30 Magnesium Hydroxide (Milk Of Magnesia) 30 ml DAILYPRN PRN PO CONSTIPATION; Start 10/19/18 at 16:30 Miscellaneous (Unresolved Clarification Entry) SEE LABEL COMMENTS DAILY XX ; Start 10/26/18 at 09:00; Stop 10/26/18 at 12:07; Status DC Ondansetron HCl (Zofran) 4 mg Q6HP PRN PO NAUSEA; Start 10/19/18 at 16:30; Stop 10/23/18 at 17:07; Status DC Oxycodone/ Acetaminophen (Percocet 5mg/ 325mg Tablet) 1 tab Q4HP PRN PO MILD/MODERATE PAIN (PS 8-10) Last administered on 10/21/18at 12:25; Start 10/19/18 at 16:30; Stop 10/21/18 at 14:08; Status DC Pantoprazole Sodium (Protonix) 40 mg DAILY PO Last administered on 11/03/18at 08:37; Start 10/20/18 at 09:00 Prednisone (Deltasone) 5 mg DAILY PO Last administered on 11/03/18at 08:37; Start 11/03/18 at 09:00; Stop 11/10/18 at 08:59 Prednisone (Deltasone) 10 mg BID PO Last administered on 10/27/18at 08:33; Start 10/22/18 at 21:00; Stop 10/27/18 at 10:47; Status DC Prednisone (Deltasone) 10 mg DAILY PO Last administered on 11/02/18at 08:23; Start 10/28/18 at 09:00; Stop 11/02/18 at 17:00; Status DC Prednisone (Deltasone) 20 mg BID PO Last administered on 10/21/18at 21:32; Start 10/19/18 at 21:00; Stop 10/21/18 at 22:00; Status DC Senna/Docusate Sodium (Senokot S) 1 tab BID PO Last administered on 10/28/18at 08:41; Start 10/19/18 at 21:00; Stop 10/28/18 at 14:31; Status DC Spironolactone (Aldactone) 25 mg QAM PO Last administered on 10/24/18at 08:42; Start 10/20/18 at 09:00; Stop 10/24/18 at 11:11; Status DC Tamsulosin HCl (Flomax) 0.4 mg QHS PO Last administered on 11/02/18at 20:29; Start 10/23/18 at 21:00 Tramadol HCl (Ultram) 50 mg Q6HP PRN PO MODERATE PAIN (PS 5-7) Last administered on 10/20/18at 11:16; Start 10/19/18 at 16:30; Stop 12/19/18 at 14:08; Status DC Tramadol/ Acetaminophen (Ultracet 37.5/ 325 Mg) 1 tab Q4HP PRN PO MILD PAIN (PS 6-10) Last administered on 10/21/18at 16:46; Start 10/21/18 at 14:15; Stop 10/23/18 at 09:59; Status DC Valsartan (Diovan) 80 mg DAILY PO Last administered on 11/03/18at 08:38; Start 10/30/18 at 09:00 Valsartan (Diovan) 160 mg DAILY PO Last administered on 10/29/18at 08:40; Start 10/25/18 at 09:00; Stop 10/29/18 at 11:22; Status DC Valsartan (Diovan) 320 mg DAILY PO Last administered on 10/24/18at 08:41; Start 10/20/18 at 09:00; Stop 10/24/18 at 11:11; Status DC TYRELL REEVES MD Nov 03, 2018 18:29
[2018-11-03 20:00] VITALS: BP 144/66
[2018-11-03] MEDS: TAMSULOSIN 0.4 MG CAP PO SCH (20:42)
[2018-11-03] MEDS: ACETAMINOPHEN TAB 650MG DOSE (2X325MG) PO PRN (20:42)
[2018-11-04 05:52] VITALS: BP 158/68
[2018-11-04] MEDS: ACETAMINOPHEN TAB 650MG DOSE (2X325MG) PO PRN ×2 (08:45→12:51)
[2018-11-04] MEDS: PANTOPRAZOLE 40MG TAB (PROTONIX) PO SCH (08:46)
[2018-11-04] MEDS: predniSONE 5 MG TAB PO SCH (08:49)
[2018-11-04] MEDS: VALSARTAN 80 MG TAB (DIOVAN) PO SCH (08:49)
[2018-11-04] MEDS: ENOXAPARIN 40 MG/0.4 ML SYRINGE (J1650) SC SCH (08:49)
[2018-11-04] MEDS ORDERED: TUBERCULIN PPD 5 UNITS/0.1 ML ID ONE (11:00)
[2018-11-04 11:27] LABS: BASO % 0.2 % (0.0-1.0); EOS # 0.1 10^3/uL (0.0-0.50); EOS % 0.8 % (0.0-3.0); HEMOGLOBIN 12.7 g/dl (12.0-15.5); LYMPH # 1.5 10^3/uL (1.5-4.5); LYMPH % 13.7 % (24.0-44.0); MEAN CORPUSCULAR HEMOGLOBIN 30.7 pg (27.0-33.0); MEAN CORPUSCULAR HGB CONC 33.4 g/dl (32.0-36.5); MEAN CORPUSCULAR VOLUME 91.8 fl (80.0-96.0); MONO # 0.6 10^3/uL (0.0-0.8); MONO % 5.6 % (0.0-5.0); NEUTROPHILS # 8.4 10^3/uL (1.8-7.7); NEUTROPHILS % 79.1 % (36.0-66.0); PLATELET COUNT, AUTOMATED 351 10^3/uL (150-450); RED BLOOD COUNT 4.14 10^6/uL (4.00-5.40); WHITE BLOOD COUNT 10.6 10^3/uL (4.0-10.0)
[2018-11-04 12:07] LABS: CALCIUM LEVEL 10.2 MG/DL (8.8-10.2); CREATININE FOR GFR 1.02 MG/DL (0.55-1.30); GLOMERULAR FILTRATION RATE 54.6 (>32); MAGNESIUM LEVEL 1.8 MG/DL (1.8-2.4); POTASSIUM SERUM 4.1 MEQ/L (3.5-5.1)
[2018-11-04 14:00] VITALS: BP 139/64
--- NOTE | 2018-11-04 14:42 | IPNPDOC ---
PM&R Progress Note DATE OF SERVICE: Nov 04, 2018 [employer] Progress Note Subjective: Patient reports she is urinating better and is feeling well overall. She is ready for room privileges. REVIEW OF SYSTEMS: The following is a completed review of systems and has been reviewed. Review of systems otherwise unremarkable. PAIN: Patient self reports left buttock pain EYES: Negative for recent vision loss EARS, NOSE, & THROAT: negative for rhinorrhea or dysphagia CARDIOVASCULAR: +HTN, denies chest pain or palpitations PULMONARY: Negative. Denies shortness of breath GASTROINTESTINAL: Negative for diarrhea, GENITOURINARY: negative for dysuria, +retention MUSCULOSKELETAL: right sacral fracture and S2 fracture NEUROLOGICAL: Left lumbar radiculopathy SKIN: intact PSYCHIATRIC: Unremarkable All other review of systems found to be negative. PHYSICAL EXAMINATION: VITAL SIGNS: Please see below. GENERAL: Pleasant and cooperative. No acute distress. Alert and oriented times three. HEENT: PERRL. Extraocular movements intact. Clear conjunctiva CARDIOVASCULAR: Regular rate and rhythm. No murmurs, rubs, or gallops LUNGS: Clear to auscultation bilaterally. No wheezes. No rhonchi ABDOMEN: Soft, nontender, nondistended. Positive bowel sounds. Normal active bowel sounds NEUROLOGICAL: Alert and oriented times three. Cranial nerves II through XII grossly intact. Sensation intact throughout all 4 extremities except diminished left L5 distribution EXTREMITIES:5\5 strength bilateral upper extremities. 5\5 strength right lower extremity. 5/5 strength in left lower extremity, except 4+/5 strength left ankle DF and EHL (-) Jere's bilat ASSESSMENT:87-year-old F with past medical history of HTN and HLD who presents status post fall with right sacral fracture. PLAN: 1. Rehab: PT/OT, assess for DME needs, mod-I and ready for room privileges 2. Ortho: right sacral fracture and S2 stable fracture, WBAT 3. Neuro: left sided leg pain, clinical picture consistent with an active L5 radiculopathy, will taper steroids from 20mg BID to 10mg BID for now -continue pillow under left knee 4. Cardio: pmh HTN and HLD: continue home meds, medicine consulted recs appreciated, d/c amlodipine and decreased ARB for low am BPs-improved 5. : +E. Coli UTI s/p Ceftriaxone, c/p oral Cefdinir, repeat Ucx negative, Patient had urinary retention-improving will need urology to f/u outpatient -flexion/extension lumbar x-ray 10-28-18 positive for mild lumbar anterolisthesis, but stable 6. DVT ppx: on lovenox and teds 7. Pain:s/p percocet, unable to tolerate tramadol, will continue Tylenol and continue to s/p taper gabapentin 7. Dispo:[facility] Allergies Coded Allergies: No Known Allergies (Unverified , 01/28/13) Vital Signs Vital Signs Date Time Temp Pulse Resp B/P (MAP) Pulse Ox O2 Delivery O2 Flow Rate FiO2 11/04/18 14:00 97.8 83 18 139/64 (89) 98 Room Air Laboratory Data CBC/BMP Laboratory Tests 11/04/18 11:15 Red Blood Count 4.14, Mean Corpuscular Volume 91.8, Mean Corpuscular Hemoglobin 30.7, Mean Corpuscular Hemoglobin Concent 33.4, Red Cell Distribution Width 14.0, Neutrophils (%) (Auto) 79.1 H, Lymphocytes (%) (Auto) 13.7 L, Monocytes (%) (Auto) 5.6 H, Eosinophils (%) (Auto) 0.8, Basophils (%) (Auto) 0.2, Neutrophils # (Auto) 8.4 H, Lymphocytes # (Auto) 1.5, Monocytes # (Auto) 0.6, Eosinophils # (Auto) 0.1, Basophils # (Auto) 0.0, Calcium Level 10.2 Labs 24H Laboratory Tests 2 11/04/18 11:15: Immature Granulocyte % (Auto) 0.6, White Blood Count 10.6H, Red Blood Count 4.14, Hemoglobin 12.7, Hematocrit 38.0, Mean Corpuscular Volume 91.8, Mean Corpuscular Hemoglobin 30.7, Mean Corpuscular Hemoglobin Concent 33.4, Red Cell Distribution Width 14.0, Platelet Count 351, Neutrophils (%) (Auto) 79.1H, Lymphocytes (%) (Auto) 13.7L, Monocytes (%) (Auto) 5.6H, Eosinophils (%) (Auto) 0.8, Basophils (%) (Auto) 0.2, Neutrophils # (Auto) 8.4H, Lymphocytes # (Auto) 1.5, Monocytes # (Auto) 0.6, Eosinophils # (Auto) 0.1, Basophils # (Auto) 0.0, Nucleated Red Blood Cells % (auto) 0.0, Anion Gap 7L, Glomerular Filtration Rate 54.6, Blood Urea Nitrogen 24H, Creatinine 1.02, Sodium Level 139, Potassium Level 4.1, Chloride Level 105, Carbon Dioxide Level 27, Calcium Level 10.2, Magnesium Level 1.8 Current Medications Current Medications Current Medications Acetaminophen (Tylenol Tab) 650 mg Q4HP PRN PO fever/MILD PAIN (PS 1-4) Last administered on 11/04/18at 12:51; Start 10/19/18 at 16:30 Amlodipine Besylate (Norvasc) 5 mg DAILY@1000 PO Last administered on 10/25/18at 11:13; Start 10/20/18 at 10:00; Stop 10/29/18 at 11:22; Status DC Bisacodyl (Dulcolax Suppository) 10 mg DAILYPRN PRN [place] CONSTIPATION Last administered on 10/21/18at 15:58; Start 10/19/18 at 16:30 Bisacodyl (Dulcolax Tab) 5 mg DAILYPRN PRN PO CONSTIPATION; Start 10/19/18 at 16:30 Cefdinir (Omnicef) 300 mg BID PO Last administered on 10/24/18at 08:42; Start 10/19/18 at 21:00; Stop 10/24/18 at 09:01; Status DC Cyclobenzaprine HCl (Flexeril) 5 mg Q6HP PRN PO SPASMS; Start 10/19/18 at 16:30; Stop 10/20/18 at 15:38; Status DC Enoxaparin Sodium (Lovenox) 40 mg DAILY SC Last administered on 11/04/18at 08:49; Start 10/20/18 at 09:00 Gabapentin (Neurontin) 100 mg TID PO Last administered on 10/31/18at 08:57; Start 10/29/18 at 21:00; Stop 10/31/18 at 10:05; Status DC Gabapentin (Neurontin) 200 mg TID PO Last administered on 10/29/18at 15:50; Start 10/28/18 at 16:00; Stop 10/29/18 at 15:54; Status DC Gabapentin (Neurontin) 300 mg QHS PO Last administered on 10/20/18at 20:28; Start 10/20/18 at 21:00; Stop 10/21/18 at 14:08; Status DC Gabapentin (Neurontin) 300 mg TID PO Last administered on 10/23/18at 16:28; Start 10/21/18 at 16:00; Stop 10/23/18 at 17:10; Status DC Gabapentin (Neurontin) 400 mg TID PO Last administered on 10/28/18at 08:44; Start 10/23/18 at 21:00; Stop 10/28/18 at 16:26; Status DC Home Med (Med Rec Complete!) ASDIRECTED XX ; Start 10/20/18 at 11:15; Stop 10/20/18 at 11:15; Status DC Indapamide (Lozol) 1.25 mg DAILY PO Last administered on 10/29/18at 08:39; Sta rt 10/20/18 at 09:00; Stop 10/29/18 at 14:42; Status DC Loperamide HCl (Imodium) 2 mg ASDIRECTED PRN PO DIARRHEA; Start 11/03/18 at 18:30 Magnesium Hydroxide (Milk Of Magnesia) 30 ml DAILYPRN PRN PO CONSTIPATION; Start 10/19/18 at 16:30 Miscellaneous (Unresolved Clarification Entry) SEE LABEL COMMENTS DAILY XX ; Start 10/26/18 at 09:00; Stop 10/26/18 at 12:07; Status DC Ondansetron HCl (Zofran) 4 mg Q6HP PRN PO NAUSEA; Start 10/19/18 at 16:30; Stop 10/23/18 at 17:07; Status DC Oxycodone/ Acetaminophen (Percocet 5mg/ 325mg Tablet) 1 tab Q4HP PRN PO MILD/MODERATE PAIN (PS 8-10) Last administered on 10/21/18at 12:25; Start 10/19/18 at 16:30; Stop 10/21/18 at 14:08; Status DC Pantoprazole Sodium (Protonix) 40 mg DAILY PO Last administered on 11/04/18at 08:46; Start 10/20/18 at 09:00 Prednisone (Deltasone) 5 mg DAILY PO Last administered on 11/04/18at 08:49; Start 11/03/18 at 09:00; Stop 11/10/18 at 08:59 Prednisone (Deltasone) 10 mg BID PO Last administered on 10/27/18at 08:33; Start 10/22/18 at 21:00; Stop 10/27/18 at 10:47; Status DC Prednisone (Deltasone) 10 mg DAILY PO Last administered on 11/02/18at 08:23; Start 10/28/18 at 09:00; Stop 11/02/18 at 17:00; Status DC Prednisone (Deltasone) 20 mg BID PO Last administered on 10/21/18at 21:32; Start 10/19/18 at 21:00; Stop 10/21/18 at 22:00; Status DC Senna/Docusate Sodium (Senokot S) 1 tab BID PO Last administered on 10/28/18at 08:41; Start 10/19/18 at 21:00; Stop 10/28/18 at 14:31; Status DC Spironolactone (Aldactone) 25 mg QAM PO Last administered on 10/24/18at 08:42; Start 10/20/18 at 09:00; Stop 10/24/18 at 11:11; Status DC Tamsulosin HCl (Flomax) 0.4 mg QHS PO Last administered on 11/03/18at 20:42; Start 10/23/18 at 21:00 Tramadol HCl (Ultram) 50 mg Q6HP PRN PO MODERATE PAIN (PS 5-7) Last administered on 10/20/18at 11:16; Start 10/19/18 at 16:30; Stop 10/21/18 at 14:08; Status DC Tramadol/ Acetaminophen (Ultracet 37.5/ 325 Mg) 1 tab Q4HP PRN PO MILD PAIN (PS 6-10) Last administered on 10/21/18at 16:46; Start 10/21/18 at 14:15; Stop 10/23/18 at 09:59; Status DC Valsartan (Diovan) 80 mg DAILY PO Last administered on 11/04/18at 08:49; Start 10/30/18 at 09:00 Valsartan (Diovan) 160 mg DAILY PO Last administered on 10/29/18at 08:40; Start 10/25/18 at 09:00; Stop 10/29/18 at 11:22; Status DC Valsartan (Diovan) 320 mg DAILY PO Last administered on 10/24/18at 08:41; Sta rt 10/20/18 at 09:00; Stop 10/24/18 at 11:11; Status DC TYRELL REEVES MD Nov 04, 2018 14:42
[2018-11-04 20:00] VITALS: BP 118/79
[2018-11-04] MEDS: TAMSULOSIN 0.4 MG CAP PO SCH (20:32)
[2018-11-05 06:00] VITALS: BP 138/63
[2018-11-05] MEDS: ACETAMINOPHEN TAB 650MG DOSE (2X325MG) PO PRN ×3 (06:52→21:02)
[2018-11-05 09:09] VITALS: BP 122/56
[2018-11-05] MEDS: PANTOPRAZOLE 40MG TAB (PROTONIX) PO SCH (09:11)
[2018-11-05] MEDS: predniSONE 5 MG TAB PO SCH (09:11)
[2018-11-05] MEDS: VALSARTAN 80 MG TAB (DIOVAN) PO SCH (09:12)
[2018-11-05] MEDS: ENOXAPARIN 40 MG/0.4 ML SYRINGE (J1650) SC SCH (09:12)
[2018-11-05 14:00] VITALS: BP 136/61
[2018-11-05] MEDS: LOPERAMIDE 2 MG CAP PO PRN (15:26)
[2018-11-05] MEDS ORDERED: Acetaminophen Tab PO (19:51)
[2018-11-05] MEDS ORDERED: FLOM0.4C39 PO (19:51)
[2018-11-05] MEDS ORDERED: LOPE2CA PO (19:51)
[2018-11-05] MEDS ORDERED: PRED5TA PO (19:51)
[2018-11-05] MEDS ORDERED: DIOV80TA3 PO (19:51)
[2018-11-05] MEDS ORDERED: SULF1TAB93 PO (19:51)
--- NOTE | 2018-11-05 19:56 | IPNPDOC ---
PM&R Progress Note DATE OF SERVICE: Nov 05, 2018 [employer] Progress Note Subjective: Patient reports she had loose stools again today without fevers or chills and says she often has loose stools and will take prophylactic peptobismal when home. Her urinary retention is improving. REVIEW OF SYSTEMS: The following is a completed review of systems and has been reviewed. Review of systems otherwise unremarkable. PAIN: Patient self reports left buttock pain EYES: Negative for recent vision loss EARS, NOSE, & THROAT: negative for rhinorrhea or dysphagia CARDIOVASCULAR: +HTN, denies chest pain or palpitations PULMONARY: Negative. Denies shortness of breath GASTROINTESTINAL: Negative constipation, +loose stools GENITOURINARY: negative for dysuria, +retention MUSCULOSKELETAL: right sacral fracture and S2 fracture NEUROLOGICAL: Left lumbar radiculopathy SKIN: intact PSYCHIATRIC: Unremarkable All other review of systems found to be negative. PHYSICAL EXAMINATION: VITAL SIGNS: Please see below. GENERAL: Pleasant and cooperative. No acute distress. Alert and oriented times three. HEENT: PERRL. Extraocular movements intact. Clear conjunctiva CARDIOVASCULAR: Regular rate and rhythm. No murmurs, rubs, or gallops LUNGS: Clear to auscultation bilaterally. No wheezes. No rhonchi ABDOMEN: Soft, nontender, nondistended. Positive bowel sounds. Normal active bowel sounds NEUROLOGICAL: Alert and oriented times three. Cranial nerves II through XII grossly intact. Sensation intact throughout all 4 extremities except diminished left L5 distribution EXTREMITIES:5\5 strength bilateral upper extremities. 5\5 strength right lower extremity. 5/5 strength in left lower extremity, except 4+/5 strength left ankle DF and EHL (-) Jere's bilat ASSESSMENT:87-year-old F with past medical history of HTN and HLD who presents status post fall with right sacral fracture. PLAN: 1. Rehab: PT/OT, assess for DME needs, mod-I and continue room privileges 2. Ortho: right sacral fracture and S2 stable fracture, WBAT 3. Neuro: left sided leg pain, clinical picture consistent with an active L5 radiculopathy, will taper steroids from 20mg BID to 10mg BID to 5mgBID, now 5mg daily and will stop on 11/10/18 -continue pillow under left knee 4. Cardio: pmh HTN and HLD: continue home meds, medicine consulted recs appreciated, d/c amlodipine and decreased ARB for low am BPs-improved 5. : +E. Coli UTI s/p Ceftriaxone, c/p oral Cefdinir, repeat Ucx negative, Patient had urinary retention-improving will need urology to f/u outpatient, however 2nd repeat UA positive, will start 5 day course of Bactrim pending Ucx results, +low grade leukocytosis, no fever -flexion/extension lumbar x-ray 10-28-18 positive for mild lumbar anterolisthesis, but stable 6. DVT ppx: on lovenox and teds, D/c lovenox at discharge, ambulating well 7. Pain:s/p percocet, unable to tolerate tramadol, will continue Tylenol and s/p taper gabapentin 7. Dispo:[facility] Friday progressing towards goals Allergies Coded Allergies: No Known Allergies (Unverified , 01/28/13) Vital Signs Vital Signs Date Time Temp Pulse Resp B/P (MAP) Pulse Ox O2 Delivery O2 Flow Rate FiO2 11/05/18 09:12 122/56 11/05/18 09:09 69 11/05/18 06:00 98.6 18 97 Room Air Laboratory Data Labs 24H Laboratory Tests 2 11/05/18 02:41: Urine Color LATRICE, Urine Appearance HAZY, Urine pH 5.0, Urine Specific [place] 1.026, Urine Protein NEGATIVE, Urine Glucose (UA) NEGATIVE, Urine Ketones NEGATIVE, Urine Blood 1+H, Urine Nitrite POSITIVEH, Urine Bilirubin NEGATIVE, Urine Urobilinogen 0.2, Urine Leukocyte Esterase 3+H, Urine WBC (Auto) 73H, Urine RBC (Auto) 4H, Urine Hyaline Casts (Auto) 0, Urine Bacteria (Auto) 3+H, Urine Squamous Epithelial Cells 7, Urine Mucus (Auto) SMALL, Urine Sperm (Auto) Microbiology Microbiology 11/05/18 Urine Culture, Received Pending Current Medications Current Medications Current Medications Acetaminophen (Tylenol Tab) 650 mg Q4HP PRN PO fever/MILD PAIN (PS 1-4) Last administered on 11/05/18at 14:14; Start 10/19/18 at 16:30 Amlodipine Besylate (Norvasc) 5 mg DAILY@1000 PO Last administered on 10/25/18at 11:13; Start 10/20/18 at 10:00; Stop 10/29/18 at 11:22; Status DC Bisacodyl (Dulcolax Suppository) 10 mg DAILYPRN PRN DC CONSTIPATION Last administered on 10/21/18at 15:58; Start 10/19/18 at 16:30 Bisacodyl (Dulcolax Tab) 5 mg DAILYPRN PRN PO CONSTIPATION; Start 10/19/18 at 16:30 Cefdinir (Omnicef) 300 mg BID PO Last administered on 10/24/18at 08:42; Start 10/19/18 at 21:00; Stop 10/24/18 at 09:01; Status DC Cyclobenzaprine HCl (Flexeril) 5 mg Q6HP PRN PO SPASMS; Start 10/19/18 at 16:30; Stop 10/20/18 at 15:38; Status DC Enoxaparin Sodium (Lovenox) 40 mg DAILY SC Last administered on 11/05/18at 09:12; Start 10/20/18 at 09:00; Stop 11/05/18 at 10:22; Status DC Gabapentin (Neurontin) 100 mg TID PO Last administered on 10/31/18at 08:57; Start 10/29/18 at 21:00; Stop 10/31/18 at 10:05; Status DC Gabapentin (Neurontin) 200 mg TID PO Last administered on 10/29/18at 15:50; Start 10/28/18 at 16:00; Stop 10/29/18 at 15:54; Status DC Gabapentin (Neurontin) 300 mg QHS PO Last administered on 10/20/18at 20:28; Start 10/20/18 at 21:00; Stop 10/21/18 at 14:08; Status DC Gabapentin (Neurontin) 300 mg TID PO Last administered on 10/23/18at 16:28; Start 10/21/18 at 16:00; Stop 10/23/18 at 17:10; Status DC Gabapentin (Neurontin) 400 mg TID PO Last administered on 10/28/18at 08:44; Start 10/23/18 at 21:00; Stop 10/28/18 at 16:26; Status DC Home Med (Med Rec Complete!) ASDIRECTED XX ; Start 10/20/18 at 11:15; Stop 10/20/18 at 11:15; Status DC Indapamide (Lozol) 1.25 mg DAILY PO Last administered on 10/29/18at 08:39; Start 10/20/18 at 09:00; Stop 10/29/18 at 14:42; Status DC Loperamide HCl (Imodium) 2 mg ASDIRECTED PRN PO DIARRHEA Last administered on 11/05/18at 15:26; Start 11/03/18 at 18:30 Magnesium Hydroxide (Milk Of Magnesia) 30 ml DAILYPRN PRN PO CONSTIPATION; Start 10/19/18 at 16:30 Miscellaneous (Unresolved Clarification Entry) SEE LABEL COMMENTS DAILY XX ; Start 10/26/18 at 09:00; Stop 10/26/18 at 12:07; Status DC Ondansetron HCl (Zofran) 4 mg Q6HP PRN PO NAUSEA; Start 10/19/18 at 16:30; Stop 10/23/18 at 17:07; Status DC Oxycodone/ Acetaminophen (Percocet 5mg/ 325mg Tablet) 1 tab Q4HP PRN PO MILD/MODERATE PAIN (PS 8-10) Last administered on 10/21/18at 12:25; Start 10/03 05/20 at 16:30; Stop 10/21/18 at 14:08; Status DC Pantoprazole Sodium (Protonix) 40 mg DAILY PO Last administered on 11/05/18at 09:11; Start 10/20/18 at 09:00 Prednisone (Deltasone) 5 mg DAILY PO Last administered on 11/05/18at 09:11; Start 11/03/18 at 09:00; Stop 11/10/18 at 08:59 Prednisone (Deltasone) 10 mg BID PO Last administered on 10/27/18at 08:33; Start 10/22/18 at 21:00; Stop 10/27/18 at 10:47; Status DC Prednisone (Deltasone) 10 mg DAILY PO Last administered on 11/02/18at 08:23; Start 10/28/18 at 09:00; Stop 11/02/18 at 17:00; Status DC Prednisone (Deltasone) 20 mg BID PO Last administered on 10/21/18at 21:32; Start 10/19/18 at 21:00; Stop 10/21/18 at 22:00; Status DC Senna/Docusate Sodium (Senokot S) 1 tab BID PO Last administered on 10/28/18at 08:41; Start 10/19/18 at 21:00; Stop 10/28/18 at 14:31; Status DC Spironolactone (Aldactone) 25 mg QAM PO Last administered on 10/24/18at 08:42; Start 10/20/18 at 09:00; Stop 10/24/18 at 11:11; Status DC Tamsulosin HCl (Flomax) 0.4 mg QHS PO Last administered on 11/04/18at 20:32; Start 10/23/18 at 21:00 Tramadol HCl (Ultram) 50 mg Q6HP PRN PO MODERATE PAIN (PS 5-7) Last administered on 10/20/18at 11:16; Start 10/19/18 at 16:30; Stop 10/21/18 at 14:08; Status DC Tramadol/ Acetaminophen (Ultracet 37.5/ 325 Mg) 1 tab Q4HP PRN PO MILD PAIN (PS 6-10) Last administered on 10/21/18at 16:46; Start 10/21/18 at 14:15; Stop 10/23/18 at 09:59; Status DC Trimethoprim/ Sulfamethoxazole (Bactrim Ds, Septra Ds 160mg/ 800mg) 1 tab BID PO ; Start 11/05/18 at 21:00; Stop 11/08/18 at 09:01 Valsartan (Diovan) 80 mg DAILY PO Last administered on 11/05/18at 09:12; Start 10/30/18 at 09:00 Valsartan (Diovan) 160 mg DAILY PO Last administered on 10/29/18at 08:40; Start 10/25/18 at 09:00; Stop 10/29/18 at 11:22; Status DC Valsartan (Diovan) 320 mg DAILY PO Last administered on 10/24/18at 08:41; Start 10/20/18 at 09:00; Stop 10/24/18 at 11:11; Status DC TYRELL REEVES MD Nov 05, 2018 19:56
[2018-11-05 20:00] VITALS: BP 132/61
[2018-11-05] MEDS: TAMSULOSIN 0.4 MG CAP PO SCH (21:02)
[2018-11-05] MEDS: BACTRIM 160MG/800MG DS TAB PO SCH (21:02)
[2018-11-06] MEDS: ACETAMINOPHEN TAB 650MG DOSE (2X325MG) PO PRN (05:49)
[2018-11-06 06:00] VITALS: BP 129/65
[2018-11-06 06:28] LABS: BASO % 0.2 % (0.0-1.0); EOS # 0.1 10^3/uL (0.0-0.50); EOS % 1.8 % (0.0-3.0); HEMATOCRIT 33.4 % (36.0-47.0); HEMOGLOBIN 11.1 g/dl (12.0-15.5); LYMPH # 1.4 10^3/uL (1.5-4.5); LYMPH % 27.4 % (24.0-44.0); MEAN CORPUSCULAR HEMOGLOBIN 31.1 pg (27.0-33.0); MEAN CORPUSCULAR HGB CONC 33.2 g/dl (32.0-36.5); MEAN CORPUSCULAR VOLUME 93.6 fl (80.0-96.0); MONO # 0.5 10^3/uL (0.0-0.8); MONO % 9.1 % (0.0-5.0); NEUTROPHILS # 3.1 10^3/uL (1.8-7.7); NEUTROPHILS % 60.7 % (36.0-66.0); PLATELET COUNT, AUTOMATED 297 10^3/uL (150-450); RED BLOOD COUNT 3.57 10^6/uL (4.00-5.40)
[2018-11-06 06:49] LABS: BLOOD UREA NITROGEN 21 MG/DL (7-18); CALCIUM LEVEL 9.3 MG/DL (8.8-10.2); CARBON DIOXIDE LEVEL 25 MEQ/L (21-32); CHLORIDE LEVEL 111 MEQ/L (98-107); GLOMERULAR FILTRATION RATE > 60.0 (>32); GLUCOSE, FASTING 87 MG/DL (70-100); POTASSIUM SERUM 3.5 MEQ/L (3.5-5.1); SODIUM LEVEL 143 MEQ/L (136-145)
[2018-11-06 08:42] VITALS: BP 129/65
[2018-11-06] MEDS: predniSONE 5 MG TAB PO SCH (08:42)
[2018-11-06] MEDS: BACTRIM 160MG/800MG DS TAB PO SCH (08:42)
[2018-11-06] MEDS: VALSARTAN 80 MG TAB (DIOVAN) PO SCH (08:42)
[2018-11-06] MEDS: PANTOPRAZOLE 40MG TAB (PROTONIX) PO SCH (08:42)
[2018-11-06] MEDS: LOPERAMIDE 2 MG CAP PO PRN (09:53)
[2018-11-06] MEDS ORDERED: PPD DOCUMENTATION ENTRY MISC XX ONE (11:00)
== END 2018-11-06 12:50 | disposition home health service (06) | DRG 560 ==
LOC: M PM&R 18:30
PROVIDERS: ADMIT Physical Medicine & Rehabilitation; ATTEND Physical Medicine & Rehabilitation
DX: S32.10XD Unspecified fracture of sacrum, subsequent encounter for fracture with routine healing (principal); N39.0 Urinary tract infection, site not specified; I44.7 Left bundle-branch block, unspecified; W19.XXXD Unspecified fall, subsequent encounter; Y93.E1 Activity, personal bathing and showering; Y92.012 Bathroom of single-family (private) house as the place of occurrence of the external cause; M54.42 Lumbago with sciatica, left side; B96.20 Unspecified Escherichia coli [E. coli] as the cause of diseases classified elsewhere; R33.9 Retention of urine, unspecified; K59.00 Constipation, unspecified; I10 Essential (primary) hypertension; E78.5 Hyperlipidemia, unspecified; Z79.52 Long term (current) use of systemic steroids; Z79.899 Other long term (current) drug therapy

== ENCOUNTER → 2018-11-24 | Outpatient (REF) | payer MEDICARE ==
[~2018-11-24] MED LIST changes: -AMLO5TAB4 PO; +AMLO5TAB6 PO; +Acetaminophen Tab PO; +DIOV80TA3 PO; +FLOM0.4C39 PO; +LOPE2CA PO; +PRED5TA PO; +SULF1TAB93 PO
[2018-11-24 18:52] LABS: APPEARANCE, URINE CLOUDY (CLEAR); BACTERIA, URINE AUTO 1+ (NEGATIVE); BILIRUBIN, URINE AUTO NEGATIVE (NEGATIVE); BLOOD, URINE BLOOD NEGATIVE (NEGATIVE); COLOR, URINE YELLOW (YELLOW); GLUCOSE, URINE (UA) AUTO NEGATIVE (NEGATIVE); KETONE, URINE AUTO NEGATIVE (NEGATIVE); LEUKOCYTE ESTERASE, URINE AUTO 3+ (NEGATIVE); MUCUS, URINE SMALL (NEGATIVE); NITRITE, URINE AUTO NEGATIVE (NEGATIVE); PROTEIN, URINE AUTO NEGATIVE (NEGATIVE); RBC, URINE AUTO 2 /HPF (0-3); SPECIFIC GRAVITY URINE AUTO 1.017 (1.002-1.035); SQUAMOUS EPITHELIAL CELL UR AU 27 /HPF (0-6); UROBILINOGEN, URINE AUTO 0.2 mg/dL (0.0-2.0); WBC, URINE AUTO 32 /HPF (0-3)
== END ==
LOC: M SMT 16:57
PROVIDERS: ATTEND Urology
DX: N32.0 Bladder-neck obstruction (principal)
CPT/HCPCS: 81001; G0463

== ENCOUNTER 2019-12-23 10:17 | Inpatient (IN) | payer MEDICARE ==
[~2019-12-23] VITALS: Ht 165.1 cm; Wt 73.6 kg
[2019-12-23] MEDS: INDAPAMIDE 1.25MG TABLET PO SCH (09:00)
[2019-12-23 11:02] LABS: BASO % 0.3 % (0.0-1.0); EOS % 0.5 % (0.0-3.0); HEMATOCRIT 40.7 % (36.0-47.0); HEMOGLOBIN 13.6 g/dl (12.0-15.5); LYMPH # 0.7 10^3/uL (1.5-5.0); LYMPH % 8.4 % (24.0-44.0); MEAN CORPUSCULAR HEMOGLOBIN 31.9 pg (27.0-33.0); MEAN CORPUSCULAR HGB CONC 33.4 g/dl (32.0-36.5); MEAN CORPUSCULAR VOLUME 95.3 fl (80.0-96.0); MONO # 0.6 10^3/uL (0.0-0.8); MONO % 7.3 % (0.0-5.0); NEUTROPHILS # 6.6 10^3/uL (1.5-8.5); PLATELET COUNT, AUTOMATED 352 10^3/uL (150-450); RED BLOOD COUNT 4.27 10^6/uL (4.00-5.40)
--- NOTE | 2019-12-23 11:12 | REP ---
Clinical: Syncope/near-syncopal episode . Comparison: None . Findings: The mediastinum and cardiac silhouette are within normal limits for portable technique. The lung bill demonstrate presumed chronic changes at the left base and a calcified nodule in the periphery of the right mid lung zone. No obvious acute consolidation or effusion. No pneumothorax. Skeletal structures are intact. Impression: Chronic-appearing changes as described above. No focal consolidation or effusion. Electronically Signed by Dimitri Rojas MD 12/23/2019 11:03 A
[2019-12-23] MEDS ORDERED: PEPT525S PO (12:02)
[2019-12-23] MEDS ORDERED: VALS1TAB66 PO (12:02)
[2019-12-23] MEDS ORDERED: INDA125TA PO (12:02)
[2019-12-23] MEDS ORDERED: ATOR1TAB19 PO (12:02)
[2019-12-23] MEDS ORDERED: SPIR-10 PO (12:02)
[2019-12-23] MEDS ORDERED: QC A650T3 PO (12:02)
[2019-12-23 14:15] LABS: ALBUMIN 3.3 GM/DL (3.2-5.2); ALT/SGPT 94 U/L (12-78); BILIRUBIN,DIRECT 1.5 MG/DL (0.0-0.2); BILIRUBIN,TOTAL 2.2 MG/DL (0.2-1.0); BLOOD UREA NITROGEN 37 MG/DL (7-18); CALCIUM LEVEL 11.1 MG/DL (8.8-10.2); CARBON DIOXIDE LEVEL 26 MEQ/L (21-32); CHLORIDE LEVEL 105 MEQ/L (98-107); CK-MB VALUE MASS 3.2 NG/ML (<3.6); CPK CREATINE PHOSPHOKINASE 175 U/L (26-192); CREATININE FOR GFR 1.27 MG/DL (0.55-1.30); GLOMERULAR FILTRATION RATE 42.3 (>32); GLUCOSE, FASTING 97 MG/DL (70-100); LIPASE 152 U/L (73-393); MAGNESIUM LEVEL 1.7 MG/DL (1.8-2.4); MB/CK RELATIVE INDEX 1.83 (< OR =4); POTASSIUM SERUM 4.3 MEQ/L (3.5-5.1); SODIUM LEVEL 137 MEQ/L (136-145); TOTAL PROTEIN 6.7 GM/DL (6.4-8.2); TROPONIN I < 0.02 NG/ML (< 0.10)
[2019-12-23] MEDS ORDERED: ISOVUE-370 76% 100ML VIAL (Q9967) As Ordered ONE (14:45)
--- NOTE | 2019-12-23 15:32 | REP ---
Clinical: Syncope and abdominal pain. Technique: Axial contrast enhanced images from the lung bases to the pubic symphysis using 100 ml Isovue 370 intravenous contrast material coronal and sagittal re-formations. Delayed images of the abdomen obtained. Findings: Ill-defined infiltrate of low density changes primarily involving the central portions of the liver with evidence for intrahepatic and extrahepatic biliary ductal dilatation as well as gallbladder distension with a relatively normal appearance to the pancreas and pancreatic duct suggests primary biliary or hepatic malignancy. No obvious inflammatory changes, fluid, or adenopathy appreciated. Spleen, pancreas, bilateral adrenal glands and kidneys are relatively normal. Small and large bowel is without obstruction or acute inflammatory process. Pelvis demonstrates normal bladder and evidence of prior hysterectomy. Abdominal aorta without aneurysm or dissection. Musculoskeletal structures demonstrate degenerative changes. Lung bases demonstrate chronic-appearing changes along with scattered nodules highly suspicious for pulmonary metastatic disease. Impression: 1. Malignant appearing infiltration to the liver with hydropic appearance to the gallbladder and intrahepatic/extrahepatic biliary ductal dilatation most concerning for primary hepatic or biliary carcinoma. The pancreas is relatively normal in appearance and there is no pancreatic ductal dilatation although a small pancreatic head lesion cannot definitively be excluded as well. Associated pulmonary metastatic disease with scattered nodules identified. Electronically Signed by Dimitri Rojas MD 12/23/2019 03:24 P
--- NOTE | 2019-12-23 16:39 | REP ---
Duplex extremity venous ultrasound: Bilateral lower extremities. History: Cancer and syncope. Rule out DVT. Findings: The deep veins are anechoic and fully compressible from the groin to the popliteal fossa in the left and right lower extremity. Color flow imaging is homogeneous. Spectral Doppler interrogation demonstrates intact respiratory variation in flow and normal manual augmentation of flow. There is no evidence of deep vein thrombosis. Impression: Negative bilateral lower extremity duplex venous ultrasound. No evidence of deep vein thrombosis. Electronically Signed by Albin Romo MD 12/23/2019 04:31 P
[2019-12-23] MEDS ORDERED: ACETAMINOPHEN 650MG ER TAB (TYLENOL ARTHRITIS) PO PRN (17:00)
--- NOTE | 2019-12-23 17:01 | HPEPDOC ---
[facility] Medical History & Physical Date of Admission Dec 23, 2019 Date of Service: Dec 23, 2019 History and Physical CHIEF COMPLAINT: SYNCOPE HISTORY OF PRESENT ILLNESS: 89 yo female presents today for syncopal episode occurred at hair salon, shortly after getting her hair done. 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 She woke up shortly after, estimates less than a minute. Denies any seizure like activity. Denies any previous such occurrence. Patient states for past month she has had very poor appetite, and resultant weight loss, although she is not sure how much weight she has lost. She also notes some abdominal discomfort over the past week. States she is a former smoker, quit 30 years ago - roughly 30 pack year history. Also exposure to second hand smoke from her . Denies any other symptoms - no chest pain, shortness of breath, headaches, changes in vision, N/V/D. No family history of cancer. PAST MEDICAL HISTORY: #HTN #dyslipidemia #urinary retention PAST SURGICAL HISTORY: 1. . 2. . 3. . SOCIAL HISTORY: Marital status: . Resides in: Children: Employment: Tobacco use: ETOH: Illicit drug use: Tattoos done unprofessionally: . IV drug use: Other relevant social factors: FAMILY HISTORY: Father: Mother: Siblings: Children: Hereditary Diseases: Unexpected deaths due to medical reasons: ALLERGIES: Please see below. REVIEW OF SYSTEMS: Negative except as per HPI HOME MEDICATIONS: Please see below. PHYSICAL EXAMINATION: VITAL SIGNS: See below General: NAD, lying comfortably in bed, elderly HEENT: NC/AT, EOMI, PERRL Lungs: CTA B/L Heart: +S1S2, RRR Abd: soft, NT, +BS Ext: no edema LABORATORY DATA: See below. MICROBIOLOGY: Please see below. ASSESSMENT: 89 yo female for syncopal event, imaging reveals suspicion for metastatic disease, PMHx HTN, HLD, urinary retention. #syncope - telemetry monitoring - echocardiogram - fall precautions - orthostatic vital signs #multiple lesion on imaging - check CT head/chest - biopsy pending #HTN - continue home meds #HLD - continue home meds #DVT prophylaxis - Lovenox . PLAN: 1. . Vital Signs Vital Signs Date Time Temp Pulse Resp B/P (MAP) Pulse Ox O2 Delivery O2 Flow Rate FiO2 12/23/19 13:54 71 136/63 (87) 72 133/66 (88) 81 118/63 (81) 12/23/19 13:17 98 Room Air 12/23/19 10:28 20 Laboratory Data Labs 24H Laboratory Tests 2 12/23/19 10:42: Immature Granulocyte % (Auto) 0.5, Neutrophils (%) (Auto) 83.0H, Lymphocytes (%) (Auto) 8.4L, Monocytes (%) (Auto) 7.3H, Eosinophils (%) (Auto) 0.5, Basophils (%) (Auto) 0.3, Neutrophils # (Auto) 6.6, Lymphocytes # (Auto) 0.7L, Monocytes # (Auto) 0.6, Eosinophils # (Auto) 0.0, Basophils # (Auto) 0.0, Nucleated Red Blood Cells % (auto) 0.0, Activated Partial Thromboplast Time 24.9L, Bedside Glucose (Misc Panel) 151H 12/23/19 13:17: Anion Gap 6L, Glomerular Filtration Rate 42.3, Calcium Level 11.1H, Magnesium Level 1.7L, Total Bilirubin 2.2H, Direct Bilirubin 1.5H, Aspartate Amino Transf (AST/SGOT) 97H, Alanine Aminotransferase (ALT/SGPT) 94H, Alkaline Phosphatase 1064H, Total Creatine Kinase 175, Creatine Kinase MB 3.2, Creatine Kinase MB Relative Index 1.83, Troponin I < 0.02, Total Protein 6.7, Albumin 3.3, Albumin/Globulin Ratio 0.97L, Lipase 152, Thyroid Stimulating Hormone (TSH) 1.710 CBC/BMP Laboratory Tests 12/23/19 10:42 12/23/19 13:17 Home Medications Scheduled Atorvastatin Calcium (Atorvastatin Calcium) 10 Mg Tablet, 10 MG PO DAILY Bismuth Subsalicylate (Pepto-Bismol) 525 Mg/15 Ml Oral.susp, 10 ML PO DAILY Indapamide (Indapamide) 1.25 Mg Tablet, 1.25 MG PO DAILY Multivitamins (Thera M Plus Tablet) 1 Tab Tab, 1 TAB PO DAILY Spironolactone (Spironolactone) 25 Mg Tablet, 25 MG PO DAILY Valsartan (Valsartan) 80 Mg Tablet, 80 MG PO QHS Scheduled PRN Acetaminophen (Acetaminophen 8 Hour) 650 Mg Tablet.er, 650 MG PO Q4H PRN for PAIN Allergies Coded Allergies: No Known Allergies (Unverified , 01/28/13) A-FIB/CHADSVASC A-FIB History Current/History of A-Fib/PAF?: No VANITA DOSS MD Dec 23, 2019 17:01
--- NOTE | 2019-12-23 17:50 | REPVR ---
PROCEDURE INFORMATION: Exam: CT Head Without Contrast Exam date and time: 12/23/2019 5:27 PM Age: 89 years old Clinical indication: Condition or disease; Cancer; Metastatic or secondary malignancy of brain; Primary cancer: Liver; Additional info: Eval mets TECHNIQUE: Imaging protocol: Computed tomography of the head without contrast. Radiation optimization: All CT scans at this facility use at least one of these dose optimization techniques: automated exposure control; mA and/or kV adjustment per patient size (includes targeted exams where dose is matched to clinical indication); or iterative reconstruction. COMPARISON: CT ABD/PEL W/IV CONTRAST ONLY 12/23/2019 2:56:26 PM FINDINGS: Brain: There is no acute intracranial hemorrhage, cerebral edema, or midline shift. Age-related cerebral and cerebellar volume loss is present. Ventricles: No hydrocephalus. Bones/joints: No acute fracture. Sinuses: No acute sinusitis. Mastoid air cells: Visualized mastoid air cells are well aerated. Soft tissues: Unremarkable. Vasculature: Atherosclerotic calcifications are seen involving the cavernous carotid arteries. Mild residual contrast is noted within the intracranial vasculature. IMPRESSION: No acute intracranial abnormality. Electronically signed by: Isiah Reid On 12/23/2019 17:50:29 PM
[2019-12-23] MEDS: ATORVASTATIN 10 MG TAB PO SCH (17:56)
--- NOTE | 2019-12-23 17:56 | REPVR ---
PROCEDURE INFORMATION: Exam: CT Chest Without Contrast Exam date and time: 12/23/2019 5:27 PM Age: 89 years old Clinical indication: Condition or disease; Other: Liver cancer; Additional info: Eval mets TECHNIQUE: Imaging protocol: Computed tomography of the chest without contrast. 3D rendering: MIP and/or 3D reconstructed images were created by the technologist. Radiation optimization: All CT scans at this facility use at least one of these dose optimization techniques: automated exposure control; mA and/or kV adjustment per patient size (includes targeted exams where dose is matched to clinical indication); or iterative reconstruction. COMPARISON: CR PORTABLE CHEST X-RAY 12/23/2019 10:56 AM FINDINGS: Lungs: A large calcified granuloma is present in the right middle lobe. There are numerous small noncalcified pulmonary nodules throughout both lungs, compatible with metastatic disease. Atelectasis is present in the lower lobes. Pleural space: Unremarkable. No pneumothorax. No pleural effusion. Heart: The heart is not enlarged. Coronary artery calcifications are present. There is no pericardial effusion. Aorta: Unremarkable. No aortic aneurysm. Lymph nodes: Calcified subcarinal and right hilar lymph nodes are noted, compatible with old granulomatous disease. Diaphragm: Elevation of the right hemidiaphragm is noted. Liver: Multiple masses are noted within the liver, compatible with metastatic disease. Intrahepatic biliary duct dilation is also noted. Please see the dedicated abdominal CT report for further details. Bones/joints: No acute fracture. Soft tissues: Unremarkable. IMPRESSION: Hepatic and pulmonary metastases Electronically signed by: Isiah Reid On 12/23/2019 17:55:51 PM
[2019-12-23] MEDS: MULTIVITAMINS/MINERALS THERAP 1 TAB PO SCH (17:57)
[2019-12-23] MEDS: SPIRONOLACTONE 25 MG TAB PO SCH (17:57)
[2019-12-23 18:00] VITALS: BP 138/64
--- NOTE | 2019-12-23 18:45 | ECGEPIP ---
[facility] - ED Test Date: 2019-12-23 Pat Name: PAOLA GEE Department: Room: - Gender: Female [employer] Operator: : 1930 Requested By: Malena Lindsay Order Number: [id number] Reading MD: Patricio Long Measurements Intervals [place] Rate: 66 P: 50 NH: 171 QRS: -25 QRSD: 113 T: 18 QT: 414 QTc: 435 Interpretive Statements SINUS RHYTHM BORDERLINE LEFT AXIS DEVIATION MODERATE INTRAVENTRICULAR CONDUCTION DELAY MINIMAL VOLTAGE CRITERIA FOR LVH, CONSIDER NORMAL VARIANT Electronically Signed on 12-23-2019 18:45:17 EST by Patricio Long
[2019-12-23 20:00] VITALS: BP 137/63
[2019-12-23] MEDS: VALSARTAN 80 MG TAB (DIOVAN) PO SCH (20:51)
[2019-12-23] MEDS: HEPARIN SOD (PORCINE) 5000 UNITS/ML VIAL (J1644 PER 1000UNITS) SC SCH (20:52)
[2019-12-24] VITALS (7 sets, daily range): BP systolic 113–136; BP diastolic 54–78
[2019-12-24 06:41] LABS: HEMATOCRIT 42.5 % (36.0-47.0); HEMOGLOBIN 14.3 g/dl (12.0-15.5); MEAN CORPUSCULAR HEMOGLOBIN 31.8 pg (27.0-33.0); MEAN CORPUSCULAR HGB CONC 33.6 g/dl (32.0-36.5); MEAN CORPUSCULAR VOLUME 94.7 fl (80.0-96.0); PLATELET COUNT, AUTOMATED 371 10^3/uL (150-450); RED BLOOD COUNT 4.49 10^6/uL (4.00-5.40); WHITE BLOOD COUNT 8.4 10^3/uL (4.0-10.0)
[2019-12-24 07:20] LABS: ALBUMIN 3.4 GM/DL (3.2-5.2); ALT/SGPT 96 U/L (12-78); BILIRUBIN,DIRECT 1.9 MG/DL (0.0-0.2); BILIRUBIN,TOTAL 2.8 MG/DL (0.2-1.0); BLOOD UREA NITROGEN 32 MG/DL (7-18); CALCIUM LEVEL 10.8 MG/DL (8.8-10.2); CARBON DIOXIDE LEVEL 27 MEQ/L (21-32); CHLORIDE LEVEL 103 MEQ/L (98-107); CREATININE FOR GFR 0.93 MG/DL (0.55-1.30); GLOMERULAR FILTRATION RATE > 60.0 (>32); GLUCOSE, FASTING 87 MG/DL (70-100); POTASSIUM SERUM 3.9 MEQ/L (3.5-5.1); SODIUM LEVEL 135 MEQ/L (136-145); TOTAL PROTEIN 7.6 GM/DL (6.4-8.2)
[2019-12-24] MEDS: SPIRONOLACTONE 25 MG TAB PO SCH (09:04)
[2019-12-24] MEDS: HEPARIN SOD (PORCINE) 5000 UNITS/ML VIAL (J1644 PER 1000UNITS) SC SCH ×2 (09:04→20:30)
[2019-12-24] MEDS: INDAPAMIDE 1.25MG TABLET PO SCH (09:06)
[2019-12-24] MEDS: ATORVASTATIN 10 MG TAB PO SCH (09:06)
[2019-12-24] MEDS: MULTIVITAMINS/MINERALS THERAP 1 TAB PO SCH (09:06)
[2019-12-24 12:12] LABS: HEPATITIS A ANTIBODY IGM NEGATIVE (NEGATIVE); HEPATITIS B CORE ANTIBODY IGM NEGATIVE (NEGATIVE); HEPATITIS B SURFACE ANTIGEN NEGATIVE (NEGATIVE); HEPATITIS C VIRUS ABY INDEX < 0.0 INDEX (<0.8); HIV 1&2 SCREEN CENTAUR NEGATIVE (NEGATIVE)
[2019-12-24] MEDS: SENOKOT S TAB PO SCH ×2 (14:10→20:30)
[2019-12-24] MEDS: DOCUSATE SODIUM 100 MG CAP PO SCH (14:10)
--- NOTE | 2019-12-24 15:13 | CR ---
MEDICAL ONCOLOGY CONSULTATION DATE OF CONSULTATION: 12/24/2019 INDICATION FOR CONSULTATION: Widely metastatic malignant neoplasm. IDENTIFICATION AND CHIEF COMPLAINT: Nika Bai is a deandra 89-year-old woman admitted via the emergency department to [facility] on December 23, 2019 following a syncopal event. Imaging studies show evidence of widely metastatic malignancy. The patient reports "I'm not sure at my age that I really wanna do anything about this and just let natural causes take their course." HISTORY OF PRESENT ILLNESS: Nika Bai is a deandra 89-year-old woman, a long time resident of [place], [place], seen at the request of Manolo Wild MD and medical inpatient service. The patient's history of present illness dates to December 23, 2019, when while having her hair groomed, she developed sudden onset of visual changes with multiple bright colors and then lost consciousness. Her hairdresser eased her to the floor per the patient's report, and the patient then woke up, surprised to find that she was in fact on the floor. The patient has no other memory of the event. The hairdresser summoned emergency medical services and the patient was brought to the emergency department. She was noted to have laboratory abnormalities, and gave a history of poor appetite over the past month with resultant weight loss as well as mild abdominal discomfort of 1 week duration. Laboratory studies documented elevated bilirubin and hepatic transaminases as well as alkaline phosphatase and the patient underwent CT scanning of the chest and abdomen on December 23, 2019. These studies demonstrate numerous noncalcified pulmonary nodules throughout both lungs as well as multiple masses within the liver and intrahepatic biliary duct dilatation. Input of medical oncology was therefore requested. At present, Mrs. Bai reports feeling well without significant pain. She reports no recent change in bowel habits, no shortness of breath and minimal abdominal discomfort. ALLERGIES: The patient has NO KNOWN MEDICATION ALLERGIES. HOME MEDICATIONS: - atorvastatin 10 mg p.o. q. day - indapamide 1.25 mg p.o. q. day - multivitamin 1 tablet p.o. q. day - valsartan 80 mg p.o. q.h.s. - spironolactone 25 mg p.o. q. day PAST MEDICAL HISTORY: The patient has a past history of essential hypertension. There is a history of hospitalization in October 2018 for right leg pain and weakness with findings of a right sacral hairline fracture and several fractures involving the lateral aspects of S2 with marked bony demineralization consistent with osteoporosis. The patient is 3, para 3 and postmenopausal with history of hysterectomy for management of endometriosis. There is a history of a benign lesion of the ovary, reportedly a cyst for which she underwent surgery at the age of 19 which included incidental appendectomy. She underwent tonsillectomy as a child. There is a history of left lumbar radiculopathy, and history of hyperlipidemia. 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 SOCIAL HISTORY: The patient is a . She has two daughters, one of whom resides in [place] and the other locally. Tobacco: The patient has a 30 pack-year history of tobacco use but quit approximately 30 years. Alcohol: The patient does not usually use alcohol. Illicit Drugs: No history of illicit drug use. FAMILY HISTORY: The patient's father at the age of 63 per her report of organic heart disease. The patient's mother at the age of roughly 63 with complications of insulin dependent diabetes mellitus. A son within the past 5 years in his sleep, presumably of organic heart disease per the family's report. REVIEW OF SYSTEMS: Neurologic: History of left lower extremity radiculopathy. History of syncope prompting the current admission. No prior history of seizure disorder or other focal neurologic deficits. Respiratory: No history of tuberculosis. No cough. No shortness of breath. No chest pain. Cardiac: No history of myocardial infarction. No exertional chest pressure. No orthopnea. There is a past history of leg edema. Gastrointestinal: Mild abdominal discomfort and modest weight loss over the past month. No recent nausea, vomiting or diarrhea. The patient has mild jaundice at this time. Genitourinary: No history of hematuria. No nephrolithiases. No dysuria. Musculoskeletal: The patient has chronic joint aches. No recent fractures. No bone pain. No joint effusions. Constitutional: No recent fevers, chills or sweats. The patient has had some modest weight loss by report over the past month. The remainder of the review of systems was obtained and was negative. PHYSICAL EXAMINATION: The patient is a well-developed, well-nourished woman awake, alert and fully oriented, friendly and cooperative, in no distress. Temperature 96.8, pulse 68, respirations 18, blood pressure 127/62, oxygen saturation 96% on room air. Skin: Full turgor, trace icterus. No rash. HEENT Examination: Normocephalic, atraumatic. Pupils reactive. Extraocular muscles intact. Sclerae anicteric. Oropharynx without lesions. Neck: Supple. Without thyromegaly. Lymphatics. No pathologic lymphadenopathy appreciated in the cervical, supraclavicular, axillary or inguinal regions. Lungs: Clear to auscultation. Cardiac Exam: Regular rhythm, point of maximal impulse nondisplaced. S1, S2, without gallop, rub or murmur appreciated. Breast Examination: Deferred. Abdomen: Active bowel sounds, soft, nontender, without appreciable organomegaly. The spleen percusses to 8 cm and appears normal in size. There is no guarding or rebound tenderness elicited. No other masses appreciated. Pelvic Examination: Deferred. Rectal Examination: Deferred. Extremities: Without clubbing, cyanosis or edema. Neurologic Exam: Mental status intact. Cranial nerves intact. Motor and sensory fully intact. DIAGNOSTIC DATA: CT scan dated December 23, 2019 reports ill-defined infiltrative low-density changes primarily involving the central portion of the liver with evidence of intrahepatic and extrahepatic biliary ductal dilatation as well as gallbladder distension with a relatively normal appearance of the pancreas and pancreatic duct. The spleen, pancreas, adrenal glands, and kidneys are relatively normal. Chest shows numerous bilateral noncalcified nodules. Complete blood count December 24, 2019 includes white blood count 8100 per microliter, hemoglobin 14.3 grams per decaliter, hematocrit 42.5%, platelet count 371,000. BUN 32, creatinine 0.93 mg per decaliter. Glucose 87 mg per decaliter. Calcium elevated at 10.8 mg per decaliter. Total bilirubin 2.8 mg per decaliter, direct bilirubin 1.9 mg per decaliter. AST elevated at 107, ALT elevated at 96. Alkaline phosphatase markedly elevated at 1218. IMPRESSION: Metastatic malignant neoplasm. The patient has a malignant neoplasm involving the lung, liver and biliary tree. The primary site has not been established, although the presentation, as suspected by the radiologist, is most suggestive of cholangiocarcinoma, with the primary tumor arising somewhere within the biliary tree. This however has not been determined with certainty, and other diagnostic possibilities include, although less likely, primary cancer of the colon, primary cancer of the breast, or primary cancer of the lung. None of these appear to be as a likely based on the distribution of disease as a biliary tract cancer. A discussion was undertaken with the patient and separately with the family regarding it was explained that a definitive diagnosis could not be obtained without histology, and a biopsy would be necessary. It was noted that the biopsy could potentially be obtained by interventional radiology percutaneously which would involve very little discomfort, or the patient could potentially have a tissue diagnosis obtained at ERCP, a procedure which may also be therapeutic as there is evidence of biliary tree obstruction. It was noted that relief of biliary obstruction is appropriate in order to reduce the risk of sepsis from an obstructed bile flow. The patient herself stated that her immediate preference is to defer any invasive procedures and let "nature take its course." This is not an unreasonable approach, however, if as unlikely as it may be the patient were found to have hormone receptor positive breast cancer, achieved remission of disease and long-term good control of disease with relatively well tolerated hormone modulatory therapy which is typically a pill. The patient agreed to consider these issues. The family indicated that they would discuss these issues with the patient. 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 In addition, it would be helpful to obtain a serum uric acid level, as hyperuricemia may contribute to renal insufficiency and could be easily treated with an oral agent. RECOMMENDATIONS: It is recommended that Zometa 4 mg be given intravenously to treat hypercalcemia at least transiently. The patient should be well hydrated for this. It is recommended that uric acid level be obtained and that a baseline CEA level be obtained and this is pending at present. The consultation by gastroenterology appears appropriate, but as noted if the patient is to consider any treatment options a histologic diagnosis would be required and this can be obtained with a high level of likelihood via a percutaneous liver biopsy performed by interventional radiology. However tissue diagnosis could also potentially be obtained at ERCP. Thus, consultation to gastroenterology would be helpful. The medical oncology service will be pleased to follow the patient through her hospital stay and if she wishes to see the patient and provide treatment following a tissue diagnosis.
[2019-12-24] MEDS ORDERED: SLF 3 ML SYR IV PRN (15:30)
--- NOTE | 2019-12-24 18:18 | IPNPDOC ---
Text Note Date of Service The patient was seen on 12/24/19. NOTE S: Pt examined at bedside. She has yesterday and feels almost back to her baseline besides some generalized weakness. She no longer has any lightheadedness or dizziness while resting in bed, tolerating food well. Her infarction diagnosis of cancer was again discussed with her, and she is unsure at this point about what she would like to do. She surprise she has such metastatic cancer especially given her very minimal symptoms. She will like to discuss with her family and also oncology regarding possible options. PE: Vitals: see below General: NAD, A&Ox3, resting comfortably HEENT: NCAT, EOMI, anicteric sclera, MMM, neck supple CV: RRR, no murmurs or clicks or rub. No edema RESP: CTAB, no w/r/r, equal chest rise bilaterally ABD: soft, NT, ND. Benign. No appreciable masses or hepatosplenomegaly EXTREMITIES: 2+ radial pulses b/l, able to move all extremities NEURO: no focal deficits or acute changes A/P: This is an 89-year-old is brought in after a syncopal event that started with blurry vision and then passing out she was sitting getting her hair done at the salon. Episode lasted for about 1 minute without any seizure-like activity. She also reports decreased appetite and weight loss over the past couple months. 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 She denies any prior history of cancers in herself or her family. She is otherwise remaining hemodynamic be stable with symptomatic improvement with supportive care, currently waiting to work with PT/OT and further input from oncology. 1. Syncope Likely 2/2 dehydration and decreased by mouth intake Cardiac markers negative. Echo pending. Telemetry only notable for few PVCs History fall precautions. Orthostatics negative thus far Encourage po intake & PT/OT. Possible dietary consult depending on intake 2. Multiple metastatic lesions on imaging Suspected primary is liver/biliary tract Tumor markers pending. Significant transaminitis Discussed the patient in depth. She is unsure on how she would like to proceed. Awaiting discussion with family and oncology Oncology consulted, appreciate input 3. Hypertension Controlled on current regimen 4. Hyperlipidemia Continue home meds DVT ppx: heparin SC CODE STATUS: DNR/DNI - confirmed with patient again at bedside today DISPO: Pending patient discussion with oncology and her family regarding further workup for new malignancy. PT/OT in meanwhile. VS,Fishbone, I+O VS, Fishbone, I+O Laboratory Tests 12/24/19 06:28 Vital Signs Date Time Temp Pulse Resp B/P (MAP) Pulse Ox O2 Delivery O2 Flow Rate FiO2 12/24/19 16:12 97.2 68 18 125/62 (83) 98 Room Air I&O- Last 24 Hours up to 6 AM 12/24/19 06:00 Intake Total 0 ml Output Total 300 ml Balance -300 ml GME ATTESTATION GME ATTESTATION My faculty preceptor for this patient encounter was physically present during the encounter and was fully available. All aspects of the patient interview, examination, medical decision making process, and medical care plan development were reviewed and approved by the faculty preceptor. The faculty preceptor is aware and concurs with the plan as stated in the body of this note and will attest to such by his/her cosignature. JANEL BRAMBILA DO Dec 24, 2019 18:18
[2019-12-24] MEDS: VALSARTAN 80 MG TAB (DIOVAN) PO SCH (20:31)
[2019-12-24] MEDS: SLF 3 ML SYR IV SCH (21:21)
[2019-12-25] VITALS: BP_SYST 111; BP_SYST 132; BP_SYST 139; BP_DIAS 60; BP_DIAS 61; BP_DIAS 64
[2019-12-25 04:00] VITALS: BP 140/66
[2019-12-25] MEDS: SLF 3 ML SYR IV SCH ×3 (05:51→20:10)
[2019-12-25 06:18] LABS: HEMATOCRIT 38.5 % (36.0-47.0); HEMOGLOBIN 12.9 g/dl (12.0-15.5); MEAN CORPUSCULAR HEMOGLOBIN 31.7 pg (27.0-33.0); MEAN CORPUSCULAR HGB CONC 33.5 g/dl (32.0-36.5); MEAN CORPUSCULAR VOLUME 94.6 fl (80.0-96.0); PLATELET COUNT, AUTOMATED 360 10^3/uL (150-450); RED BLOOD COUNT 4.07 10^6/uL (4.00-5.40); WHITE BLOOD COUNT 6.3 10^3/uL (4.0-10.0)
[2019-12-25 06:57] LABS: ALT/SGPT 80 U/L (12-78); BILIRUBIN,DIRECT 1.4 MG/DL (0.0-0.2); BILIRUBIN,TOTAL 2.1 MG/DL (0.2-1.0); BLOOD UREA NITROGEN 30 MG/DL (7-18); CALCIUM LEVEL 10.5 MG/DL (8.8-10.2); CARBON DIOXIDE LEVEL 28 MEQ/L (21-32); CHLORIDE LEVEL 106 MEQ/L (98-107); GLOMERULAR FILTRATION RATE > 60.0 (>32); GLUCOSE, FASTING 89 MG/DL (70-100); SODIUM LEVEL 139 MEQ/L (136-145); TOTAL PROTEIN 6.2 GM/DL (6.4-8.2); URIC ACID 11.1 MG/DL (2.6-6.0)
[2019-12-25 07:38] VITALS: BP 121/58
[2019-12-25] MEDS: DOCUSATE SODIUM 100 MG CAP PO SCH (08:18)
[2019-12-25] MEDS: INDAPAMIDE 1.25MG TABLET PO SCH (08:18)
[2019-12-25] MEDS: SPIRONOLACTONE 25 MG TAB PO SCH (08:18)
[2019-12-25] MEDS: SENOKOT S TAB PO SCH ×2 (08:18→20:09)
[2019-12-25] MEDS: HEPARIN SOD (PORCINE) 5000 UNITS/ML VIAL (J1644 PER 1000UNITS) SC SCH ×2 (08:19→20:10)
[2019-12-25] MEDS: MULTIVITAMINS/MINERALS THERAP 1 TAB PO SCH (08:19)
[2019-12-25] MEDS: ATORVASTATIN 10 MG TAB PO SCH (08:19)
[2019-12-25] MEDS ORDERED: ZOLEDRONIC ACID 4 MG in IV 1 EA IV ONE (09:00)
[2019-12-25 12:00] VITALS: BP 141/66
--- NOTE | 2019-12-25 14:15 | IPNPDOC ---
Text Note Date of Service The patient was seen on 12/25/19. NOTE S: Pt examined at bedside. Has no complaints of feeling well otherwise. Denies any lightheadedness or dizziness since admission. Daughter/healthcare proxy is also present. In depth discussion was held regarding her options for the malignancy. Pt states "Just let me go naturally; doing all this won't change a thing," but and they have not finalized their decision fully, but are leaning towards hospice. She has no other issues, no events overnight. PE: Vitals: see below General: NAD, A&Ox3, resting comfortably HEENT: NCAT, EOMI, anicteric sclera, MMM, neck supple CV: RRR, no murmurs or clicks or rub. No edema RESP: CTAB, no w/r/r, equal chest rise bilaterally ABD: soft, NT, ND. Benign. No appreciable masses or hepatosplenomegaly EXTREMITIES: 2+ radial pulses b/l, able to move all extremities NEURO: no focal deficits or acute changes A/P: This is an 89-year-old is brought in after a syncopal event that started with blurry vision and then passing out she was sitting getting her hair done at the salon. Episode lasted for about 1 minute without any seizure-like activity. She also reports decreased appetite and weight loss over the past couple months. 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 Is otherwise stable with symptomatic improvement with supportive care, considering Hospice, but want active treatment at this point. 1. Multiple metastatic lesions on imaging Suspected primary is biliary tract, especially in light of elevated CEA, nml AFP. CA199 pending Oncology consulted, appreciate input - patient refuses ERCP or any scopes. Undecided about transthoracic biopsy through IR, however leaning towards also declining this Significant transaminitis and hyperuricemia likely 2/2 malignancy. Decreased by mouth intake Start on IV fluids and allopurinol Spoke with patient and daughter at length again today regarding her results and options. At this point, they would like active treatment, confirmed DNR/DNI, and are leaning towards hospice. They would like to speak with the hospice team and Dr. Lewis prior to finalizing their decision. 2. Syncope Likely 2/2 dehydration and decreased by mouth intake Cardiac markers negative. Echo taken-report pending On fall precautions. Orthostatics positive - on IVF Encourage po intake & PT/OT 3. Hypertension Controlled on current regimen 4. Hyperlipidemia Continue home meds DVT ppx: heparin SC CODE STATUS: DNR/DNI - confirmed with patient DISPO: Patient leaning towards hospice, however at this point wants active treatment until she speaks with the hospice team. Likely will DC home with hospice on Friday. VS,Fishbone, I+O VS, Fishbone, I+O Laboratory Tests 12/25/19 05:46 Vital Signs Date Time Temp Pulse Resp B/P (MAP) Pulse Ox O2 Delivery O2 Flow Rate FiO2 12/25/19 12:00 97.3 70 18 141/66 (91) 96 Room Air I&O- Last 24 Hours up to 6 AM 12/25/19 06:00 Intake Total 600 ml Output Total 0 ml Balance 600 ml GME ATTESTATION GME ATTESTATION My faculty preceptor for this patient encounter was physically present during the encounter and was fully available. All aspects of the patient interview, examination, medical decision making process, and medical care plan development were reviewed and approved by the faculty preceptor. The faculty preceptor is aware and concurs with the plan as stated in the body of this note and will attest to such by his/her cosignature. JANEL BRAMBILA DO Dec 25, 2019 14:15
[2019-12-25] MEDS ORDERED: NS 500 ML IV ONE (15:00)
[2019-12-25] MEDS: D5W/0.45% SODIUM CHLORIDE 1,000 ML IV SCH (15:04)
[2019-12-25] MEDS: allopurinoL 300 MG TAB PO SCH ×2 (15:04→20:09)
--- NOTE | 2019-12-25 15:18 | ECHO ---
DATE OF PROCEDURE: 12/25/2019 AGE: 89 GENDER: Female. Height 65 inches Weight 158 pounds Body surface area 1.79 meters squared LOCATION: Inpatient progressive care unit (PCU) room 3226. REFERRING PHYSICIAN: Dr. Manolo Wild INDICATIONS: Syncope. MEASUREMENTS 2-D measurements: RV - 3.6 cm LV - 4.1 cm Septum 0.9 cm Posterior wall 0.9 cm Aortic root 3.1 cm LA - 3.1 cm LVEF 75% DOPPLER MEASUREMENTS: AV - 1.42 meters per second LVOT - 1.08 meters per second LVOT diameter - 2.0 cm MV-E 68, A 84, E/A ratio 0.8. Early mitral deceleration time 282 milliseconds E prime medial 5, A prime medial 11, E prime lateral 7 Average, E/E prime ratio 11.3 /PCWP - 16 mmHg PV - 0.75 meters per second Pulmonary artery acceleration time 100 milliseconds RVSP 37 mmHg IVC - 1.20 cm COMMENTS: Normal sinus rhythm without intraventricular conduction disturbance. M-mode and two-dimensional echocardiography was performed with pulsed, continuous wave, color flow and tissue Doppler studies. Normal left ventricular size and wall thickness with hyperkinetic wall motion. Normal left atrial size with a grade 1 LV diastolic dysfunction and current estimated mean left atrial pressure upper limits of normal to marginally increased. Normal right heart chamber sizes and motion with Doppler evidence of mild pulmonary hypertension. Normal IVC size and collapse against an elevated central venous pressure. Normal aortic dimensions. Subtle aortic valvular sclerosis without functional abnormality. Mild mitral annular thickening with normal leaflet excursion and no posterior systolic buckling. Only very mild insufficiency (physiologic). Normal appearing tricuspid valve with mild insufficiency (physiologic). No apparent intracardiac mass or pericardial effusion. No structural or functional abnormality to account for the patient's syncopal spell echocardiographically.
[2019-12-25 16:00] VITALS: BP_SYST 118; BP_SYST 129; BP_SYST 143; BP_DIAS 55; BP_DIAS 59; BP_DIAS 67
[2019-12-25] MEDS: VALSARTAN 80 MG TAB (DIOVAN) PO SCH (20:12)
[2019-12-25 21:40] VITALS: BP 128/68
[2019-12-26] VITALS: BP_SYST 120; BP_SYST 126; BP_SYST 127; BP_DIAS 65; BP_DIAS 66; BP_DIAS 84
[2019-12-26] MEDS: D5W/0.45% SODIUM CHLORIDE 1,000 ML IV SCH (05:30)
[2019-12-26] MEDS: SLF 3 ML SYR IV SCH ×2 (05:30→13:35)
[2019-12-26 06:00] VITALS: BP 126/72
[2019-12-26 07:13] LABS: HEMATOCRIT 37.6 % (36.0-47.0); HEMOGLOBIN 12.8 g/dl (12.0-15.5); MEAN CORPUSCULAR HEMOGLOBIN 32.2 pg (27.0-33.0); MEAN CORPUSCULAR VOLUME 94.7 fl (80.0-96.0); PLATELET COUNT, AUTOMATED 328 10^3/uL (150-450); RED BLOOD COUNT 3.97 10^6/uL (4.00-5.40); WHITE BLOOD COUNT 6.3 10^3/uL (4.0-10.0)
[2019-12-26 07:36] LABS: BLOOD UREA NITROGEN 20 MG/DL (7-18); CALCIUM LEVEL 9.3 MG/DL (8.8-10.2); CARBON DIOXIDE LEVEL 26 MEQ/L (21-32); CHLORIDE LEVEL 106 MEQ/L (98-107); CREATININE FOR GFR 0.79 MG/DL (0.55-1.30); GLOMERULAR FILTRATION RATE > 60.0 (>32); GLUCOSE, FASTING 122 MG/DL (70-100); POTASSIUM SERUM 3.5 MEQ/L (3.5-5.1); SODIUM LEVEL 138 MEQ/L (136-145)
[2019-12-26] MEDS: HEPARIN SOD (PORCINE) 5000 UNITS/ML VIAL (J1644 PER 1000UNITS) SC SCH ×2 (08:27→20:47)
[2019-12-26] MEDS: MULTIVITAMINS/MINERALS THERAP 1 TAB PO SCH (08:27)
[2019-12-26] MEDS: DOCUSATE SODIUM 100 MG CAP PO SCH (08:27)
[2019-12-26] MEDS: INDAPAMIDE 1.25MG TABLET PO SCH (08:27)
[2019-12-26] MEDS: ATORVASTATIN 10 MG TAB PO SCH (08:27)
[2019-12-26] MEDS: allopurinoL 300 MG TAB PO SCH ×2 (08:27→20:47)
[2019-12-26] MEDS: SENOKOT S TAB PO SCH ×2 (08:27→20:47)
[2019-12-26] MEDS: SPIRONOLACTONE 25 MG TAB PO SCH (08:27)
--- NOTE | 2019-12-26 12:02 | IPNPDOC ---
Text Note Date of Service The patient was seen on 12/26/19. NOTE S: Pt seen and examined at bedside. No new medical complaints. No acute overn ight events reported. O: Vitals: see below General: NAD, A&Ox3, resting comfortably in bed, elderly HEENT: NCAT, EOMI, anicteric sclera, MMM, neck supple CV: RRR, no murmurs or clicks or rub. No edema RESP: CTAB, no w/r/r, equal chest rise bilaterally ABD: soft, NT, ND, +BS EXTREMITIES: no edema A/P: This is an 89-year-old is brought in after a syncopal event that started with blurry vision and then passing out she was sitting getting her hair done at the salon. Episode lasted for about 1 minute without any seizure-like activity. She also reports decreased appetite and weight loss over the past couple months. 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 Is otherwise stable with symptomatic improvement with supportive care, considering Hospice, but want active treatment at this point. # Multiple metastatic lesions on imaging Suspected primary is biliary tract, especially in light of elevated CEA, nml AFP. CA199 pending Oncology consulted, appreciate input - patient refuses ERCP or any scopes. Undecided about transthoracic biopsy through IR, however leaning towards also declining this Significant transaminitis and hyperuricemia likely 2/2 malignancy. Decreased by mouth intake Start on IV fluids and allopurinol Spoke with patient and daughter at length again today regarding her results and options. At this point, they would like active treatment, confirmed DNR/DNI, and are leaning towards hospice. They would like to speak with the hospice team and Dr. Lewis prior to finalizing their decision. #Syncope Likely 2/2 dehydration and decreased by mouth intake Cardiac markers negative. Echo taken-report pending On fall precautions. Orthostatics positive - on IVF Encourage po intake & PT/OT #HTN Controlled on current regimen #HLD Continue home meds DVT ppx: heparin SC CODE STATUS: DNR/DNI - confirmed with patient DISPO: Patient leaning towards hospice, however at this point wants active treatment until she speaks with the hospice team. VS,Fishbone, I+O VS, Fishbone, I+O Laboratory Tests 12/26/19 06:53 Vital Signs Date Time Temp Pulse Resp B/P (MAP) Pulse Ox O2 Delivery O2 Flow Rate FiO2 12/26/19 06:00 97.6 69 16 126/72 (90) 95 Room Air I&O- Last 24 Hours up to 6 AM 12/26/19 06:00 Intake Total 2070 ml Output Total 0 ml Balance 2070 ml VANITA DOSS MD Dec 26, 2019 12:02
[2019-12-26 14:00] VITALS: BP 107/55
[2019-12-26] MEDS: VALSARTAN 80 MG TAB (DIOVAN) PO SCH (20:48)
[2019-12-26 22:00] VITALS: BP 130/60
[2019-12-27] MEDS: SLF 3 ML SYR IV SCH ×4 (00:57→22:00)
[2019-12-27 05:48] LABS: HEMATOCRIT 35.9 % (36.0-47.0); HEMOGLOBIN 12.2 g/dl (12.0-15.5); MEAN CORPUSCULAR HEMOGLOBIN 32.2 pg (27.0-33.0); MEAN CORPUSCULAR VOLUME 94.7 fl (80.0-96.0); PLATELET COUNT, AUTOMATED 313 10^3/uL (150-450); RED BLOOD COUNT 3.79 10^6/uL (4.00-5.40); WHITE BLOOD COUNT 8.6 10^3/uL (4.0-10.0)
[2019-12-27 06:00] VITALS: BP 122/57
[2019-12-27 06:08] LABS: BLOOD UREA NITROGEN 11 MG/DL (7-18); CALCIUM LEVEL 9.4 MG/DL (8.8-10.2); CARBON DIOXIDE LEVEL 26 MEQ/L (21-32); CHLORIDE LEVEL 106 MEQ/L (98-107); CREATININE FOR GFR 0.81 MG/DL (0.55-1.30); GLOMERULAR FILTRATION RATE > 60.0 (>32); GLUCOSE, FASTING 125 MG/DL (70-100); POTASSIUM SERUM 3.6 MEQ/L (3.5-5.1); SODIUM LEVEL 135 MEQ/L (136-145)
[2019-12-27] MEDS: D5W/0.45% SODIUM CHLORIDE 1,000 ML IV SCH ×2 (09:54→10:16)
[2019-12-27] MEDS: SPIRONOLACTONE 25 MG TAB PO SCH (10:16)
[2019-12-27] MEDS: MULTIVITAMINS/MINERALS THERAP 1 TAB PO SCH (10:17)
[2019-12-27] MEDS: SENOKOT S TAB PO SCH ×2 (10:17→20:22)
[2019-12-27] MEDS: allopurinoL 300 MG TAB PO SCH ×2 (10:17→20:22)
[2019-12-27] MEDS: ATORVASTATIN 10 MG TAB PO SCH (10:17)
[2019-12-27] MEDS: INDAPAMIDE 1.25MG TABLET PO SCH (10:17)
[2019-12-27] MEDS: DOCUSATE SODIUM 100 MG CAP PO SCH (10:17)
[2019-12-27] MEDS: HEPARIN SOD (PORCINE) 5000 UNITS/ML VIAL (J1644 PER 1000UNITS) SC SCH ×2 (10:18→20:20)
[2019-12-27] MEDS ORDERED: LORazepam 1 MG TAB PO PRN (11:30)
[2019-12-27] MEDS ORDERED: SCOPOLAMINE 1MG TRANSDERMAL PATCH TOP PRN (11:30)
[2019-12-27] MEDS ORDERED: HYOSCYAMINE SULFATE 0.125 MG SUBL TABLET PO PRN (11:30)
[2019-12-27] MEDS ORDERED: FLEET ENEMA PR PRN (11:30)
[2019-12-27] MEDS ORDERED: MORPHINE 10MG/0.5ML ORAL CONCENTRATE SOLUTION U/D SL PRN (11:30)
[2019-12-27] MEDS ORDERED: BISACODYL 10 MG SUPP PR PRN (11:30)
[2019-12-27] MEDS ORDERED: ONDANSETRON 4 MG ORAL DISINTEGRATING TAB (Q0162 PER 1MG) PO PRN (11:30)
[2019-12-27] MEDS ORDERED: ATROPINE SULFATE 1% OP SOLN 2 ML BTL SL PRN (11:30)
[2019-12-27] MEDS ORDERED: BISA10SU PR (13:14)
[2019-12-27] MEDS ORDERED: ONDA4TAB6 PO (13:14)
[2019-12-27] MEDS ORDERED: MORP20SO3 PO (13:14)
[2019-12-27] MEDS ORDERED: ZYLO300T6 PO (13:14)
[2019-12-27] MEDS ORDERED: LORA0.5T5 PO (13:14)
[2019-12-27] MEDS ORDERED: HYOS125TA PO (13:14)
[2019-12-27 14:00] VITALS: BP 109/55
--- NOTE | 2019-12-27 14:07 | DS.PDOC ---
Discharge Summary General Date of Admission Dec 23, 2019 at 16:46 Date of Discharge 12/27/19 Attending Physician: VANITA DOSS MD Specialist/Consultants Involve: SOPHIE MCCAULEY MD Discharge Summary PROCEDURES PERFORMED DURING STAY: None. DISCHARGE DIAGNOSES: 1. SHOW HOST status, leaving on Hospice 2. 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 Syncope 4. HTN 5. HLD HISTORY OF PRESENT ILLNESS: This is an 89-year-old is brought in after a syncopal event that started with blurry vision and then passing out she was sitting getting her hair done at the salon. Episode lasted for about 1 minute without any seizure-like activity. She also reports decreased appetite and weight loss over the past couple months. 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 She denies any prior history of cancers in herself or her family. She was otherwise hemodynamically stable with symptomatic improvement with supportive care. HOSPITAL COURSE: She was admitted to hospital and given supportive care. Oncologist Dr. Mccauley was consulted, who provided options including IR-guided biopsy versus ERCP with biopsy. Patient adamantly declined any invasive testing. After thorough discussions, she and her family decided on foregoing any further workup or treatment, and chose to become COMFORT MEASURES ONLY. Hospice was consulted, and new MOLST was signed and updated. She was started on allopurinol for her hyperuricemia and symptomatic management of possible tumor lysis syndrome complications down the line. During her stay, tumor marker AFP was 5.7, and CEA was significant elevated around 6500. At time of discharge, C1 99 is pending. We offered our best wishes to Ms. Bai and her family. DISCHARGE MEDICATIONS: Please see below. ALLERGIES: Please see below. PHYSICAL EXAMINATION ON DISCHARGE: VITAL SIGNS: Please see below. General: NAD, A&Ox3, resting comfortably HEENT: NCAT, EOMI, anicteric sclera, MMM, neck supple CV: RRR, no murmurs or clicks or rub. No edema RESP: CTAB, no w/r/r, equal chest rise bilaterally ABD: soft, NT, ND. Benign. No appreciable masses or hepatosplenomegaly EXTREMITIES: 2+ radial pulses b/l, able to move all extremities NEURO: no focal deficits or acute changes LABORATORY DATA: Please see below. IMAGING: * 2/20/20 CXR: Chronic-appearing changes as described above. No focal consolidation or effusion. * 12/23/19 CT abdomen and pelvis: 1. Malignant appearing infiltration to the liver with hydropic appearance to the gallbladder and intrahepatic/extrahepatic biliary ductal dilatation most concerning for primary hepatic or biliary carcinoma. The pancreas is relatively normal in appearance and there is no pancreatic ductal dilatation although a small pancreatic head lesion cannot definitively be excluded as well. Associated pulmonary metastatic disease with scattered nodules identified. * 12/23/19 bilateral LE Doppler: Negative bilateral lower extremity duplex venous ultrasound. No evidence of deep vein thrombosis. * 12/23/[address]: No acute intracranial abnormality. * 12/23/[address]: Hepatic and pulmonary metastases PROGNOSIS: terminal ACTIVITY: As tolerated. DIET: as tolerated DISPOSITION: Hospice facility DISCHARGE INSTRUCTIONS: Care as per Hospice. DISCHARGE CONDITION: Stable. TIME SPENT ON DISCHARGE: Greater than 35 minutes. Vital Signs/I&Os Vital Signs Date Time Temp Pulse Resp B/P (MAP) Pulse Ox O2 Delivery O2 Flow Rate FiO2 12/27/19 06:00 98.1 73 18 122/57 (78) 96 12/26/19 14:00 Room Air I&O- Last 24 Hours up to 6 AM 12/27/19 06:00 Intake Total 3076 ml Output Total 500 ml Balance 2576 ml Laboratory Data Labs 24H Laboratory Tests 2 12/27/19 05:34: Nucleated Red Blood Cells % (auto) 0.0, Anion Gap 3L, Glomerular Filtration Rate > 60.0, Calcium Level 9.4 CBC/BMP Laboratory Tests 12/27/19 05:34 Discharge Medications Scheduled Allopurinol (Zyloprim) 300 Mg Tablet, 300 MG PO BID Atorvastatin Calcium (Atorvastatin Calcium) 10 Mg Tablet, 10 MG PO DAILY, (Reported) Bismuth Subsalicylate (Pepto-Bismol) 525 Mg/15 Ml Oral.susp, 10 ML PO DAILY, (Re ported) Indapamide (Indapamide) 1.25 Mg Tablet, 1.25 MG PO DAILY, (Reported) Multivitamins (Thera M Plus Tablet) 1 Tab Tab, 1 TAB PO DAILY, (Reported) Spironolactone (Spironolactone) 25 Mg Tablet, 25 MG PO DAILY, (Reported) Valsartan (Valsartan) 80 Mg Tablet, 80 MG PO QHS, (Reported) Scheduled PRN Acetaminophen (Acetaminophen 8 Hour) 650 Mg Tablet.er, 650 MG PO Q4H PRN for PAIN, (Reported) Bisacodyl (Bisacodyl) 10 Mg Supp.rect, 10 MG PA Q24HP PRN for CONSTIPATION Hyoscyamine Sulfate (Hyoscyamine Sulfate) 0.125 Mg Tab.subl, 0.125 MG PO Q4HP PRN for TERMINAL SECRETIONS Use sublingually if unable to swallow Lorazepam (Lorazepam) 0.5 Mg Tablet, 0.5 MG PO Q4HP PRN for ANXIETY/AGITATION Use sublingually if unable to swallow Morphine Sulfate (Morphine Sulfate) 100 Mg/5 Ml Solution, 0.25-1 ML PO Q2H PRN for PAIN OR DYSPNEA Use sublingually if unable to swallow Ondansetron (Ondansetron Odt) 4 Mg Tab.rapdis, 4 MG PO Q6HP PRN for NAUSEA OR VOMITING Allergies Coded Allergies: No Known Allergies (Unverified , 01/28/13) GME ATTESTATION GME ATTESTATION My faculty preceptor for this patient encounter was physically present during the encounter and was fully available. All aspects of the patient interview, examination, medical decision making process, and medical care plan development were reviewed and approved by the faculty preceptor. The faculty preceptor is aware and concurs with the plan as stated in the body of this note and will attest to such by his/her cosignature. JANEL BRAMBILA DO Dec 27, 2019 14:07
[2019-12-27 20:22] VITALS: BP 131/61
[2019-12-27] MEDS: VALSARTAN 80 MG TAB (DIOVAN) PO SCH (20:22)
[2019-12-27 22:00] VITALS: BP 118/57
--- NOTE | 2019-12-27 22:22 | IPN ---
DATE: 12/27/2019 MEDICAL ONCOLOGY INPATIENT FOLLOWUP DIAGNOSIS: 89-year-old woman with progressive dysphagia, loss of appetite, weakness, found to have metastatic malignancy involving lung, liver, biliary tree. Primary not established, suspected possible gallbladder/biliary. Less likely, but possible, would be primary colon cancer, primary breast cancer, or possibly primary lung cancer. Today I met with Nika and her daughter Jessica as well as her daughter Kaitlin on the telephone to discuss the overall clinical impression and answered their questions regarding whether there is any value to biopsy. Nika had previously discussed this with Dr. Mccauley as well. The purpose of a biopsy would be for tissue diagnosis. Prognosis could change depending on origin of the cancer. A primary upper GI malignancy would confer a very poor prognosis, such as gastric, gallbladder, or biliary tree carcinoma. A primary colon cancer could potentially be treated but most likely with chemotherapy unless it were MSI high in which case immunotherapy could be given. Finally, a primary breast cancer with metastases can often be treated with pills only even when involving liver and lung. I reviewed all these issues. I showed the patient the spot in the lung and liver, discussed how a biopsy could potentially be done. From the family's description and Nika's as well, it sounds like she was failing alone at home. They are a going to discuss her case with hospice today. I was there really for an informational visit and because the Richardson family is well known to me. Jessica, Kaitlin and Nika had opportunity to ask questions, all of which I answered to their apparent satisfaction. They will work with hospice to determine where Nika should be from this point forward if she elects for hospice care. I did explain active treatment involves having a performance status that allows Nika to be just quasi-independent; for example, being able to get to visits and being out of bed more than 50% of the day. IMPRESSION: Metastatic malignancy, uncertain etiology, suspected upper GI source but colon or breast are also possibilities. PLAN: At this point, the patient would like to speak with hospice and is deferring a tissue biopsy. She has expressed wish not to have chemotherapy. I answered all of her and her family's questions to their apparent satisfaction today. Should she elect to try for treatment or biopsy, I can coordinate. TIME STATEMENT: 15 minutes [id number] with the patient, more than 50% involved in counseling, answering questions related to the topics above. [facility]
[2019-12-28] MEDS: SLF 3 ML SYR IV SCH (05:16)
[2019-12-28 06:00] VITALS: BP 118/56
[2019-12-28 06:22] LABS: HEMATOCRIT 38.2 % (36.0-47.0); HEMOGLOBIN 12.9 g/dl (12.0-15.5); MEAN CORPUSCULAR HEMOGLOBIN 32.3 pg (27.0-33.0); MEAN CORPUSCULAR HGB CONC 33.8 g/dl (32.0-36.5); MEAN CORPUSCULAR VOLUME 95.7 fl (80.0-96.0); PLATELET COUNT, AUTOMATED 347 10^3/uL (150-450); RED BLOOD COUNT 3.99 10^6/uL (4.00-5.40); WHITE BLOOD COUNT 9.3 10^3/uL (4.0-10.0)
[2019-12-28 06:29] LABS: BLOOD UREA NITROGEN 10 MG/DL (7-18); CALCIUM LEVEL 9.8 MG/DL (8.8-10.2); CARBON DIOXIDE LEVEL 26 MEQ/L (21-32); CHLORIDE LEVEL 105 MEQ/L (98-107); CREATININE FOR GFR 0.86 MG/DL (0.55-1.30); GLOMERULAR FILTRATION RATE > 60.0 (>32); GLUCOSE, FASTING 94 MG/DL (70-100); POTASSIUM SERUM 3.4 MEQ/L (3.5-5.1); SODIUM LEVEL 134 MEQ/L (136-145)
[2019-12-28] MEDS: allopurinoL 300 MG TAB PO SCH (09:16)
[2019-12-28] MEDS: HEPARIN SOD (PORCINE) 5000 UNITS/ML VIAL (J1644 PER 1000UNITS) SC SCH (09:17)
[2019-12-28] MEDS: DOCUSATE SODIUM 100 MG CAP PO SCH (09:17)
[2019-12-28] MEDS: SENOKOT S TAB PO SCH (09:17)
[2019-12-28] MEDS: INDAPAMIDE 1.25MG TABLET PO SCH (09:18)
[2019-12-28] MEDS: ATORVASTATIN 10 MG TAB PO SCH (09:18)
[2019-12-28] MEDS: SPIRONOLACTONE 25 MG TAB PO SCH (09:18)
[2019-12-28] MEDS: MULTIVITAMINS/MINERALS THERAP 1 TAB PO SCH (09:18)
[2019-12-28] MEDS ORDERED: ONDA4TAB6 PO (11:19)
[2019-12-28] MEDS ORDERED: MORP20SO3 PO (11:19)
[2019-12-28] MEDS ORDERED: LORA0.5T5 PO (11:19)
[2019-12-28] MEDS ORDERED: BISA10SU PR (11:19)
[2019-12-28] MEDS ORDERED: ZYLO300T6 PO (11:19)
[2019-12-28] MEDS ORDERED: HYOS125TA PO (11:19)
--- NOTE | 2019-12-28 11:38 | IPNPDOC ---
Text Note Date of Service The patient was seen on 12/28/19. NOTE S: Patient elected to become comfort measures only, but discharge was delayed due to awaiting placement at hospice facility. No events overnight. No changes from yesterday. Patient and her family did speak with their family friend Dr. Lewis, see her note in chart. She is otherwise doing well and has no complaints, will be going to Hospice home today per staff. Please refer to dsicharge summary of 12/27/19. No changes since then. PE: General exam: A&Ox3, NAD, sitting up in chair comfortably HEENT: NCAT, EOMI Respiratory: Breathing comfortably on room air and speaking full sentences Abdomen: Nondistended Extremity: no edema Skin: [place], warm, dry, no visible rash Msk: Intact and equal in all limbs. Moves independently Neuro: normal speech, no focal deficits Psych: Normal mood and affect A/P: This is an 89-year-old is brought in after a syncopal event that started with blurry vision and then passing out she was sitting getting her hair done at the salon. Episode lasted for about 1 minute without any seizure-like activity. She also reports decreased appetite and weight loss over the past couple months. 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 Is otherwise stable with symptomatic improvement with supportive care, elected Hospice care & [employer] status, pending hospice facility bed likely today. 1. Multiple metastatic lesions on imaging: Pt elected to forego workup or treatment. Going to Hospice facility. 2. Hypertension - controlled 3. Hyperlipidemia - statin dc'd given [employer] status and terminal illness DISPO: Likely going to Hospice facility today. Please refer to 12/27/19 discharge summary. No changes since then. Discharge was delayed due to awaiting Hospice placement. VS,Fishbone, I+O VS, Fishbone, I+O Laboratory Tests 12/28/19 05:36 Vital Signs Date Time Temp Pulse Resp B/P (MAP) Pulse Ox O2 Delivery O2 Flow Rate FiO2 12/28/19 06:00 97.4 83 17 118/56 (76) 97 Room Air I&O- Last 24 Hours up to 6 AM 12/28/19 06:00 Intake Total 665 ml Output Total 1175 ml Balance -510 ml GME ATTESTATION GME ATTESTATION My faculty preceptor for this patient encounter was physically present during the encounter and was fully available. All aspects of the patient interview, examination, medical decision making process, and medical care plan development were reviewed and approved by the faculty preceptor. The faculty preceptor is aware and concurs with the plan as stated in the body of this note and will attest to such by his/her cosignature. JANEL BRAMBILA DO Dec 28, 2019 11:38
[2019-12-28 12:57] LABS: CA19-9 TUMOR MARKER,CARBOHYDRA 592975.1 U/ML (<35.0)
== END 2019-12-28 12:34 | disposition hospice, inpatient (51) | DRG 436 ==
LOC: M ED 10:17 → EDBD 10:17 → M ED INP 16:46 → ENRESERV 16:55 → M PCU 17:42 → M MSPAV 12-25 21:37
PROVIDERS: ADMIT Internal Medicine; ATTEND Internal Medicine
DX: C78.7 Secondary malignant neoplasm of liver and intrahepatic bile duct (principal); C78.00 Secondary malignant neoplasm of unspecified lung; C24.9 Malignant neoplasm of biliary tract, unspecified; R55 Syncope and collapse; I10 Essential (primary) hypertension; E78.5 Hyperlipidemia, unspecified; Z79.899 Other long term (current) drug therapy; Z51.5 Encounter for palliative care; E83.52 Hypercalcemia; R13.10 Dysphagia, unspecified